=== PATIENT | female | born 1995 | race Caucasian/White ===

== ENCOUNTER 2016-03-04 21:51 | Emergency (ER) | payer OTHER ==
[2016-03-04] MEDS ORDERED: PROPARACAINE 0.5% OPHTH DROPS 15 ML BTL RIGHT EYE STA (23:08)
--- NOTE | 2016-03-04 23:12 | ED ---
General Adult HPI - General Chief complaint: ENT Stated complaint: Eye Problem Time Seen by Provider: 03/04/16 22:53 Source: patient, family, RN notes reviewed Mode of arrival: ambulatory - History of Present Illness Initial comments: This is a 21-year-old female presents with right eye irritation that started last night. Sister is also present in the room and states that patient was rubbing her eye last night and woke up today with a swollen right eyelid. Sister states she was placed on Ciloxan eyedrops for this. Mother was also present and admits to some crusting around the eye. Mother denies any known foreign body to the eye. Patient is special needs and sister and mother were the historians. Mother denies any complaints of blurry vision. Sr. states they contacted the solution maker who suggested they come in for evaluation for possible cellulitis. Mother denies the patient has had any recent fever, chills, shortness breath, chest pain, abdominal pain, nausea/vomiting/diarrhea, back pain, numbness, tingling, hematuria, headache, or any other complaints. - Related Data Allergies Allergy/AdvReac Type Severity Reaction Status Date / Time cephalexin [From Keflex] Allergy Rash/Hives Verified 03/04/16 23:19 Penicillins Allergy Rash/Hives Verified 03/04/16 23:19 sulfamethoxazole Allergy Rash/Hives Verified 03/04/16 23:19 [From Bactrim] trimethoprim [From Bactrim] Allergy Rash/Hives Verified 03/04/16 23:19 Review of Systems ROS Statement: Those systems with pertinent positive or pertinent negative responses have been documented in the HPI. ROS Other: All systems not noted in ROS Statement are negative. Past Medical History Past Medical History: Musculoskeletal Disorder Additional Past Medical History / Comment(s): developmentally delayed. cleft palate. Nystagmus. (L) pupil is larger than (R) pupil. Eczema History of Any Multi-Drug Resistant Organisms: None Reported Past Surgical History: Ear Surgery Past Psychological History: No Psychological Hx Reported Smoking Status: Never smoker Past Alcohol Use History: None Reported Past Drug Use History: None Reported General Exam - General Exam Comments Initial Comments: General: The patient is awake and alert, in no distress, and does not appear acutely ill. Eye: There is normal conjunctiva. There is mild erythema and swelling over the right upper eyelid. Mild crusting to the right lower eyelid. No foreign body visualized with observation or with eyelid eversion. No drainage present. Pupils are equal, round and reactive to light, extra-ocular movements are intact. No nystagmus. No signs of icterus. Mouth and throat: There are moist mucous membranes and no oral lesions. Neck: The neck is supple, there is no tenderness or JVD. Cardiovascular: There is a regular rate and rhythm. No murmur, rub or gallop is appreciated. Respiratory: Lungs are clear to auscultation, respirations are non-labored, breath sounds are equal. No wheezes, stridor, rales, or rhonchi. Musculoskeletal: Normal ROM, no tenderness. Strength 5/5. Sensation intact. Radial pulses equal bilaterally 2+. Neurological: A&O x 3. CN II-XII intact, There are no obvious motor or sensory deficits. Coordination appears grossly intact. Speech is normal. Skin: There is mild erythema and mild swelling over the right upper eyelid. Patient is keeping the eyelid closed. Skin is warm and dry and no rashes or lesions are noted. Psychiatric: Cooperative, appropriate mood & affect, normal judgment. Course Vital Signs 03/04/16 03/05/16 22:05 01:34 Temperature 98.8 F 98.2 F Pulse Rate 62 98 Respiratory 18 20 Rate Blood Pressure 118/67 130/70 O2 Sat by Pulse 98 98 Oximetry Medical Decision Making - Medical Decision Making This is a 21-year-old female presents with right irritation and mild swelling. On physical exam There is normal conjunctiva. There is mild erythema and swelling over the right upper eyelid. Mild crusting to the right lower eyelid. Pupils are equal, round and reactive to light, extra-ocular movements are intact. No nystagmus. No signs of icterus. Proparacaine was applied to the right eye and fluorescein stain was applied and viewed under the Jacinto lamp. No foreign body or corneal abrasion was noted. At this point patient was able to keep the right eye open. Sister states erythema of the right eyelid has improved since this morning. Sister also states that the patient is keeping her eyes open and not complaining of the pain that she was today. Computed tomography scan was done of the orbits and reviewed showing: Negative computed tomography scan of the orbits. I do not see any significant soft tissue swelling. Reported by Dr. Hall. Discussed results with family. Discussed to continue antibiotics eyedrops. Discussed close follow-up with family doctor. Sister of the patient states she works in an opthamology clinic and they are following up an solution maker tomorrow. Discussed return parameters. Discussed that patient should follow up with PCP in one to 2 days or return to the [facility] for any worsening symptoms or for any further concerns. Patient was receptive to this plan and patient will be discharged home. I discussed his case with attending physician Dr. Lowe who agrees the plan as stated above. Disposition Clinical Impression: Blepharitis Disposition: HOME SELF-CARE Condition: Good Instructions: Blepharitis (ED) Additional Instructions: Please continue use of antibiotic eyedrops. Please use [id number] Tylenol or Motrin as needed for any pain. Please use medication as discussed. Please continue the follow-up as planned with your solution maker tomorrow. Please follow-up with family doctor in the next 2 days of symptoms have not improved. Please return to emergency room if the symptoms increase or worsen or for any other concerns. Referrals: Sebastian Neri MD [Primary Care Provider] - 1-2 days Time of Disposition: 01:16
[2016-03-04] MEDS ORDERED: RX INFO: IV CONTRAST WAS GIVEN 1 EACH MISC MISCELLANE PRN (23:50)
[2016-03-04] MEDS ORDERED: LORazepam 1 MG TAB PO STA (23:54)
--- NOTE | 2016-03-05 01:09 | CT ---
EXAMINATION TYPE: CT orbits w con DATE OF EXAM: 03/05/2016 12:53 AM COMPARISON: NONE HISTORY: Rt eye pain, redness, swelling CT DLP: 293.90 mGycm Automated exposure control for dose reduction was used. CONTRAST: Performed with IV Contrast, patient injected with 100 mL of Omnipaque 300. FINDINGS: The orbital margins are intact. There is no evidence of retro-orbital mass. There is fairly normal de velopment and aeration of the paranasal sinuses. There is no sign of a blowout fracture. There is no pathologic enhancement. The globes are symmetric. IMPRESSION: NEGATIVE CT SCAN OF THE ORBITS. I DO NOT SEE ANY SIGNIFICANT SOFT TISSUE SWELLING.
[2016-03-05 01:35] VITALS: BP 130/70; PULSE 98; RESP 20; TEMP 98.2
== END 2016-03-05 01:35 | disposition home or self-care (01) ==
LOC: EC 21:51
DX: H01.009 Unspecified blepharitis unspecified eye, unspecified eyelid (principal); Z88.0 Allergy status to penicillin; Z88.1 Allergy status to other antibiotic agents
CPT/HCPCS: 99283; 70481; Q9967

== ENCOUNTER 2018-02-13 16:14 | Emergency (ER) | payer OTHER ==
[2018-02-13 17:07] VITALS: BP 102/56; PULSE 61; RESP 18; TEMP 98.4
--- NOTE | 2018-02-13 18:03 | ED ---
General Adult HPI - General Chief complaint: Dental/Oral Stated complaint: FACIAL SWELLING, DENTAL INFECTION Time Seen by Provider: 02/13/18 17:43 Source: patient, family, RN notes reviewed Mode of arrival: ambulatory Limitations: no limitations - History of Present Illness Initial comments: Patient 23-year-old female presenting to the emergency room today with a chief complaint of dental abscess. patient does have history of muscular dystrophy and developmental delay. History is obtained from her mother. She does admit that she's had multiple dental problems in the past and had dental abscesses. States they have a difficult time finding anyone that will help them as she needs to be sedated. They state that they've noticed swelling started 2 days ago. They do admit that is consistent with dental abscess that she's had in the past. Denies any other complaints or symptoms. - Related Data Home Medications Medication Instructions Recorded Confirmed Introvale Control 1 tab PO HS 02/13/18 02/13/18 Oxybutynin Chloride [Ditropan XL] 10 mg PO HS 02/13/18 02/13/18 Sertraline [Zoloft] 25 mg PO HS 02/13/18 02/13/18 Previous Rx's Medication Instructions Recorded Clindamycin HCl 300 mg PO Q6H #40 cap 02/13/18 Allergies Allergy/AdvReac Type Severity Reaction Status Date / Time cephalexin [From Keflex] Allergy Rash/Hives Verified 02/13/18 17:53 Penicillins Allergy Rash/Hives Verified 02/13/18 17:53 sulfamethoxazole Allergy Rash/Hives Verified 02/13/18 17:53 [From Bactrim] trimethoprim [From Bactrim] Allergy Rash/Hives Verified 02/13/18 17:53 Review of Systems ROS Statement: Those systems with pertinent positive or pertinent negative responses have been documented in the HPI. ROS Other: All systems not noted in ROS Statement are negative. Past Medical History Past Medical History: Musculoskeletal Disorder Additional Past Medical History / Comment(s): developmentally delayed. cleft palate. Nystagmus. (L) pupil is larger than (R) pupil. Eczema History of Any Multi-Drug Resistant Organisms: None Reported Past Surgical History: Ear Surgery Past Psychological History: No Psychological Hx Reported Smoking Status: Never smoker Past Alcohol Use History: None Reported Past Drug Use History: None Reported General Exam - General Exam Comments Initial Comments: General: The patient is awake and alert, in no distress, and does not appear acutely ill. Eye: There is normal conjunctiva bilaterally. No signs of icterus. Ears, nose, mouth and throat: There are moist mucous membranes and no oral lesions. swelling to the left lower gumline with some tenderness. Neck: The neck is supple Cardiovascular: There is a regular rate and rhythm. No murmur, rub or gallop is appreciated. Respiratory: Lungs are clear to auscultation, respirations are non-labored, breath sounds are equal. No wheezes, stridor, rales, or rhonchi. Musculoskeletal: Normal ROM, no tenderness. Neurological: A&O x 3. CN II-XII intact, There are no obvious motor or sensory deficits. Coordination appears grossly intact. Speech is normal. Skin: Skin is warm and dry and no rashes or lesions are noted. Psychiatric: Cooperative, appropriate mood & affect, normal judgment. Limitations: no limitations Course Vital Signs 02/13/18 17:04 Temperature 98.4 F Pulse Rate 61 Respiratory 18 Rate Blood Pressure 102/56 O2 Sat by Pulse 99 Oximetry Medical Decision Making - Medical Decision Making patient was started on clindamycin as there is ALLERGIES to penicillin. Disposition Clinical Impression: Dental abscess Disposition: HOME SELF-CARE Condition: Good Instructions: Dental Abscess (ED) Additional Instructions: Please follow-up with dentist and use antibiotic and pain medication as discussed. [facility] [address] [address] [phone]) (existing clients only) For new clients: [phone] [facility] Pay $50 for x-rays and the rest discovered [phone] Prescriptions: Clindamycin HCl 300 mg PO Q6H #40 cap Is patient prescribed a controlled substance at d/c from ED?: No Referrals: Nae Burnett MD [Primary Care Provider] - 1-2 days Time of Disposition: 18:02
== END 2018-02-13 18:10 | disposition home or self-care (01) ==
LOC: EC 16:14
DX: K04.7 Periapical abscess without sinus (principal); Z79.3 Long term (current) use of hormonal contraceptives; Z79.899 Other long term (current) drug therapy; Z88.0 Allergy status to penicillin; Z88.2 Allergy status to sulfonamides; Z88.1 Allergy status to other antibiotic agents
CPT/HCPCS: 99283

== ENCOUNTER → 2020-08-09 | Outpatient (CLI) | payer OTHER ==
--- NOTE | 2020-08-09 14:00 | US ---
EXAMINATION TYPE: US venous doppler duplex LE DATE OF EXAM: 08/09/2020 1:45 PM COMPARISON: NONE CLINICAL HISTORY: R22.41 swelling R leg, R22.42 swelling L leg. SIDE PERFORMED: Bilateral TECHNIQUE: The lower extremity deep venous system is examined utilizing real time linear array sonog tabby with graded compression, doppler sonography and color-flow sonography. VESSELS IMAGED: Common Femoral Vein Deep Femoral Vein Greater Saphenous Vein * Femoral Vein Popliteal Vein Small Saphenous Vein * Proximal Calf Veins (* superficial vessels) Technically difficult study. Patient's legs are hard and swollen. Unable to see for most compression views, additional color views taken. Right Leg: Negative for DVT Left Leg: Negative for DVT IMPRESSION: No definite sonographic evidence for DVT of the bilateral lower extremities on this limited exam.
[2020-08-09 15:05] LABS: Basophils # (A) 0.1 k/uL (0-0.2); Basophils % (A) 1 %; Eosinophils # (A) 0.2 k/uL (0-0.7); Eosinophils % (A) 2 %; HCT 41.8 % (34.0-46.0); HGB 13.7 gm/dL (11.4-16.0); Lymphocytes # (A) 1.5 k/uL (1.0-4.8); Lymphocytes % (A) 13 %; MCH 26.1 pg (25.0-35.0); MCHC 32.8 g/dL (31.0-37.0); MCV 79.8 fL (80.0-100.0); Mean Platelet Volume 6.6; Monocytes # (A) 0.6 k/uL (0-1.0); Monocytes % (A) 5 %; Neutrophils # (A) 8.8 k/uL (1.3-7.7); Neutrophils % (A) 78 %; Platelet Count 388 k/uL (150-450); RBC 5.24 m/uL (3.80-5.40); RDW 13.3 % (11.5-15.5); WBC 11.2 k/uL (3.8-10.6)
[2020-08-09 15:17] LABS: ALT 23 U/L (4-34); AST 29 U/L (14-36); African American GFR (CKD) >90 (>60 ml/min/1.73 sqM); Alkaline Phosphatase 97 U/L (38-126); Anion Gap 5 mmol/L; Blood Urea Nitrogen 11 mg/dL (7-17); Calcium 9.4 mg/dL (8.4-10.2); Carbon Dioxide 36 mmol/L (22-30); Chloride 95 mmol/L (98-107); Glucose 73 mg/dL (74-99); Non-African American GFR(CKD) >90 (>60 ml/min/1.73 sqM); Potassium 4.6 mmol/L (3.5-5.1); Sodium 136 mmol/L (137-145); Total Bilirubin 0.3 mg/dL (0.2-1.3); Total Protein 7.3 g/dL (6.3-8.2)
[2020-08-09 15:31] LABS: T4, Free (Free Thyroxine) 1.06 ng/dL (0.78-2.19)
== END | disposition home or self-care (01) ==
LOC: RADUSWWP 13:05
PROVIDERS: ATTEND Internal Medicine
DX: R22.41 Localized swelling, mass and lump, right lower limb (principal); R22.42 Localized swelling, mass and lump, left lower limb
CPT/HCPCS: 80053; 84439; 84443; 84481; 85025; 93970

== ENCOUNTER → 2020-09-21 | Outpatient (CLI) | payer OTHER ==
[2020-09-22 06:08] LABS: T4, Free (Free Thyroxine) 1.3 ng/dL (0.80-1.80)
== END | disposition home or self-care (01) ==
LOC: LABWHC1 15:18
PROVIDERS: ATTEND Internal Medicine
DX: E03.9 Hypothyroidism, unspecified (principal)
CPT/HCPCS: 36415; 84439; 84443; 84481

== ENCOUNTER → 2021-02-03 | Outpatient (CLI) | payer OTHER ==
[2021-02-03 15:44] LABS: HCT 39.1 % (37.2-46.3); HGB 11.4 g/dL (12.0-15.0); MCH 22.6 pg (27.0-32.0); MCHC 29.2 g/dL (32.0-37.0); MCV 77.4 fL (80.0-97.0); Mean Platelet Volume 9.8 fL (9.5-12.2); Platelet Count 389 X 10*3/uL (140-440); RBC 5.05 X 10*6/uL (4.10-5.20); RDW 16.4 % (11.5-14.5); WBC 9.86 X 10*3/uL (4.50-10.00)
[2021-02-03 17:31] LABS: Anion Gap 13.6 mmol/L (10.00-18.00); BUN/Creat Ratio 18.37 Ratio (12.00-20.00); Blood Urea Nitrogen 9.9 mg/dL (9.0-27.0); Calcium 9.5 mg/dL (8.7-10.3); Carbon Dioxide 24.3 mmol/L (20.0-27.5); Non-African American GFR(CKD) 130.3 (60.0-200.0); Potassium 4.8 mmol/L (3.5-5.5)
== END | disposition home or self-care (01) ==
LOC: LABWHC1 10:17
PROVIDERS: ATTEND Internal Medicine Cardiovascular Disease
DX: R60.0 Localized edema (principal); R06.02 Shortness of breath
CPT/HCPCS: 36415; 80048; 84443; 85027

== ENCOUNTER 2021-07-30 19:20 | Inpatient (IN) | payer OTHER ==
--- NOTE | 2021-07-30 20:38 | XR ---
EXAMINATION TYPE: XR chest 2V DATE OF EXAM: 07/30/2021 COMPARISON: NONE HISTORY: Weakness TECHNIQUE: 2 views FINDINGS: There is thoracic moderate dextroscoliosis in kyphotic deformity. There is posterior joseluis st abilizing the thoracic spine. No pulmonary consolidation. No obvious heart failure. Exam limited by p atient positioning. No pleural effusion. IMPRESSION: No definite evidence for active cardiopulmonary disease.
[2021-07-30 20:42] LABS: Appearance,Urine Cloudy (Clear); Bilirubin,Urine Negative (Negative); Blood,Urine Negative (Negative); Color,Urine Yellow; Glucose,Urine (UA) Negative (Negative); Ketones,Urine Negative (Negative); Leukocyte Esterase,Urine Large (Negative); Mucus,Urine Rare /hpf; Nitrite,Urine Negative (Negative); Protein,Urine 2+ (Negative); RBC,Urine 3 /hpf (0-5); Specific Gravity,Urine 1.027 (1.001-1.035); Squamous Epithelial Cell,Urine 4 /hpf (0-4); Urobilinogen,Urine <2.0 mg/dL (<2.0); WBC,Urine 16 /hpf (0-5)
--- NOTE | 2021-07-30 21:29 | ED ---
General Adult HPI - General Chief complaint: Weakness Stated complaint: Covid+ Time Seen by Provider: 07/30/21 19:44 Source: patient, RN notes reviewed, old records reviewed Mode of arrival: wheelchair Limitations: altered mental status - History of Present Illness Initial comments: Patient is a 26 year old female who presents to the emergency room at the direction of urgent care with her mother. Patient has notable cognitive delay. She states that she had send out coated testing completed at urgent care but was directed to the emergency room due to desaturation of 88-94% on room air along with tachypnea and mild fevers. She her mother also reports approximately 30 pound weight gain in the last 2 weeks and over the last 24 hours her right lower extremity has a calm red and warm to the touch. She has a history of fluid volume overload and is typically on Lasix outpatient but has not taken any Lasix today. 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 She has musculoskeletal deformities and has multiple skeletal surgeries. Her mother reports a history of seizures without a seizure since 2005. She was previously on Depakote but has been off Depakote for many years and no longer follows with local neurology. She does follow with specialist at [facility] as needed. She has short statured with minimal verbal interaction with staff but does speak with her mother often. Overall she denies any complaints of pain or shortness of breath at this time. - Related Data Home Medications Medication Instructions Recorded Confirmed Introvale Control 1 tab PO HS 02/13/18 02/13/18 Oxybutynin Chloride [Ditropan XL] 10 mg PO HS 02/13/18 02/13/18 Sertraline [Zoloft] 25 mg PO HS 02/13/18 02/13/18 Previous Rx's Medication Instructions Recorded Clindamycin HCl 300 mg PO Q6H #40 cap 02/13/18 Allergies Allergy/AdvReac Type Severity Reaction Status Date / Time cephalexin [From Keflex] Allergy Rash/Hives Verified 07/30/21 19:34 Penicillins Allergy Rash/Hives Verified 07/30/21 19:34 sulfamethoxazole Allergy Rash/Hives Verified 07/30/21 19:34 [From Bactrim] trimethoprim [From Bactrim] Allergy Rash/Hives Verified 07/30/21 19:34 Review of Systems ROS Statement: Those systems with pertinent positive or pertinent negative responses have been documented in the HPI. ROS Other: All systems not noted in ROS Statement are negative. Past Medical History Past Medical History: Musculoskeletal Disorder Additional Past Medical History / Comment(s): developmentally delayed. cleft palate. Nystagmus. (L) pupil is larger than (R) pupil. Eczema History of Any Multi-Drug Resistant Organisms: None Reported Past Surgical History: Ear Surgery Past Psychological History: No Psychological Hx Reported Smoking Status: Never smoker Past Alcohol Use History: None Reported Past Drug Use History: None Reported General Exam General appearance: alert, in no apparent distress, obese Head exam: Present: atraumatic, normocephalic, normal inspection Eye exam: Present: normal appearance, PERRL, EOMI. Absent: scleral icterus, conjunctival injection, periorbital swelling ENT exam: Present: other (Multiple missing teeth and decay noted) Neck exam: Present: other (large neck). Absent: tenderness Respiratory exam: Present: normal lung sounds bilaterally, other (Mild tachypnea at times no overt distress). Absent: accessory muscle use Cardiovascular Exam: Present: normal rhythm, tachycardia (mild 110s). Absent: systolic murmur, rubs, gallop, clicks GI/Abdominal exam: Present: soft, normal bowel sounds, other (Rounded). Absent: distended, tenderness, guarding, rebound, rigid Extremities exam: Present: pedal edema (Bilateral left +2-3, right +2), other (foot deformity noted with impaired ROM. Right lower extremity ankle & foot red/warm) Neurological exam: Present: alert, CN II-XII intact (grossly), other (developmental delay minimal verbal response to staff) Psychiatric exam: Present: flat affect Skin exam: Present: dry, intact, erythema (right ankle & foot) Course Vital Signs 07/30/21 07/30/21 07/30/21 19:30 22:28 22:29 Temperature 100.6 F H Pulse Rate 110 H 105 H 104 H Respiratory 23 22 Rate Blood Pressure 121/63 135/81 O2 Sat by Pulse 92 L 85 L 99 Oximetry Medical Decision Making - Medical Decision Making Due to covid exposure will check for covid along with influenza. Given weight gain will check for volume overload. Due to lower extremity swelling and redness will check for DVT. Chest x-ray negative for acute processes however desaturation to 85% on room air noted with response to 2 L nasal cannula. Leukocytosis and positive COVID result noted. Doppler negative for DVT. ProBNP normal. Elevated d-dimer likely secondary to COVID however given chest x-ray with no acute cardiopulmonary process and hypoxia will check CT for PE. Leukocytosis and urinalysis noted however no bacteria seen no need for treatment for UTI at this time. Will need admission for hypoxia COVID; Will give 1 dose of IV Lasix for lower extremity swelling will likely be able to resume oral Lasix inpatient. Patient [facility] needs will page [facility] physicians for admission. Dr. Villavicencio notified of admission and accepting. Will place admission orders. CTA pending. Plan of care discussed with mother at bedside who will remain with patient due to cognitive delay. - Lab Data Result diagrams: 07/30/21 21:31 07/30/21 21:31 Lab Results 07/30/21 07/30/21 07/30/21 Range/Units 20:00 20:24 20:24 WBC (3.8-10.6) k/uL RBC (3.80-5.40) m/uL Hgb (11.4-16.0) gm/dL Hct (34.0-46.0) % MCV (80.0-100.0) fL MCH (25.0-35.0) pg MCHC (31.0-37.0) g/dL RDW (11.5-15.5) % Plt Count (150-450) k/uL MPV Neutrophils % % Lymphocytes % % Monocytes % % Eosinophils % % Basophils % % Neutrophils # (1.3-7.7) k/uL Lymphocytes # (1.0-4.8) k/uL Monocytes # (0-1.0) k/uL Eosinophils # (0-0.7) k/uL Basophils # (0-0.2) k/uL PT (9.0-12.0) sec INR (<1.2) APTT (22.0-30.0) sec D-Dimer (<0.60) mg/L FEU Sodium (137-145) mmol/L Potassium (3.5-5.1) mmol/L Chloride (98-107) mmol/L Carbon Dioxide (22-30) mmol/L Anion Gap mmol/L BUN (7-17) mg/dL Creatinine (0.52-1.04) mg/dL Est GFR (CKD-EPI)AfAm (>60 ml/min/1.73 sqM) Est GFR (CKD-EPI)NonAf (>60 ml/min/1.73 sqM) Glucose (74-99) mg/dL Plasma Lactic Acid Jesus (0.7-2.0) mmol/L Calcium (8.4-10.2) mg/dL Total Bilirubin (0.2-1.3) mg/dL AST (14-36) U/L ALT (4-34) U/L Alkaline Phosphatase (38-126) U/L Troponin I (0.000-0.034) ng/mL NT-Pro-B Natriuret Pep pg/mL Total Protein (6.3-8.2) g/dL Albumin (3.5-5.0) g/dL Urine Color Yellow Urine Appearance Cloudy H (Clear) Urine pH 7.0 (5.0-8.0) Ur Specific [place] 1.027 (1.001-1.035) Urine Protein 2+ H (Negative) Urine Glucose (UA) Negative (Negative) Urine Ketones Negative (Negative) Urine Blood Negative (Negative) Urine Nitrite Negative (Negative) Urine Bilirubin Negative (Negative) Urine Urobilinogen <2.0 (<2.0) mg/dL Ur Leukocyte Esterase Large H (Negative) Urine RBC 3 (0-5) /hpf Urine WBC 16 H (0-5) /hpf Ur Squamous Epith Cells 4 (0-4) /hpf Urine Mucus Rare H (None) /hpf Coronavirus (PCR) Detected A (Not Detectd) Influenza Type A RNA Not Detected (Not Detectd) Influenza Type B (PCR) Not Detected (Not Detectd) 07/30/21 07/30/21 07/30/21 Range/Units 21:31 21:31 21:31 WBC 12.1 H (3.8-10.6) k/uL RBC 4.69 (3.80-5.40) m/uL Hgb 12.7 (11.4-16.0) gm/dL Hct 41.4 (34.0-46.0) % MCV 88.3 (80.0-100.0) fL MCH 27.1 (25.0-35.0) pg MCHC 30.7 L (31.0-37.0) g/dL RDW 13.5 (11.5-15.5) % Plt Count 287 (150-450) k/uL MPV 6.8 Neutrophils % 89 % Lymphocytes % 3 % Monocytes % 5 % Eosinophils % 1 % Basophils % 2 % Neutrophils # 10.7 H (1.3-7.7) k/uL Lymphocytes # 0.3 L (1.0-4.8) k/uL Monocytes # 0.6 (0-1.0) k/uL Eosinophils # 0.1 (0-0.7) k/uL Basophils # 0.2 (0-0.2) k/uL PT 10.2 (9.0-12.0) sec INR 0.9 (<1.2) APTT 27.8 (22.0-30.0) sec D-Dimer 1.44 H (<0.60) mg/L FEU Sodium 134 L (137-145) mmol/L Potassium 4.5 (3.5-5.1) mmol/L Chloride 96 L (98-107) mmol/L Carbon Dioxide 31 H (22-30) mmol/L Anion Gap 7 mmol/L BUN 11 (7-17) mg/dL Creatinine 0.62 (0.52-1.04) mg/dL Est GFR (CKD-EPI)AfAm >90 (>60 ml/min/1.73 sqM) Est GFR (CKD-EPI)NonAf >90 (>60 ml/min/1.73 sqM) Glucose 120 H (74-99) mg/dL Plasma Lactic Acid Jesus (0.7-2.0) mmol/L Calcium 8.8 (8.4-10.2) mg/dL Total Bilirubin 0.3 (0.2-1.3) mg/dL AST 22 (14-36) U/L ALT 18 (4-34) U/L Alkaline Phosphatase 87 (38-126) U/L Troponin I (0.000-0.034) ng/mL NT-Pro-B Natriuret Pep pg/mL Total Protein 7.0 (6.3-8.2) g/dL Albumin 3.9 (3.5-5.0) g/dL Urine Color Urine Appearance (Clear) Urine pH (5.0-8.0) Ur Specific [place] (1.001-1.035) Urine Protein (Negative) Urine Glucose (UA) (Negative) Urine Ketones (Negative) Urine Blood (Negative) Urine Nitrite (Negative) Urine Bilirubin (Negative) Urine Urobilinogen (<2.0) mg/dL Ur Leukocyte Esterase (Negative) Urine RBC (0-5) /hpf Urine WBC (0-5) /hpf Ur Squamous Epith Cells (0-4) /hpf Urine Mucus (None) /hpf Coronavirus (PCR) (Not Detectd) Influenza Type A RNA (Not Detectd) Influenza Type B (PCR) (Not Detectd) 07/30/21 07/30/21 07/30/21 Range/Units 21:31 21:31 21:31 WBC (3.8-10.6) k/uL RBC (3.80-5.40) m/uL Hgb (11.4-16.0) gm/dL Hct (34.0-46.0) % MCV (80.0-100.0) fL MCH (25.0-35.0) pg MCHC (31.0-37.0) g/dL RDW (11.5-15.5) % Plt Count (150-450) k/uL MPV Neutrophils % % Lymphocytes % % Monocytes % % Eosinophils % % Basophils % % Neutrophils # (1.3-7.7) k/uL Lymphocytes # (1.0-4.8) k/uL Monocytes # (0-1.0) k/uL Eosinophils # (0-0.7) k/uL Basophils # (0-0.2) k/uL PT (9.0-12.0) sec INR (<1.2) APTT (22.0-30.0) sec D-Dimer (<0.60) mg/L FEU Sodium (137-145) mmol/L Potassium (3.5-5.1) mmol/L Chloride (98-107) mmol/L Carbon Dioxide (22-30) mmol/L Anion Gap mmol/L BUN (7-17) mg/dL Creatinine (0.52-1.04) mg/dL Est GFR (CKD-EPI)AfAm (>60 ml/min/1.73 sqM) Est GFR (CKD-EPI)NonAf (>60 ml/min/1.73 sqM) Glucose (74-99) mg/dL Plasma Lactic Acid Jesus 1.4 (0.7-2.0) mmol/L Calcium (8.4-10.2) mg/dL Total Bilirubin (0.2-1.3) mg/dL AST (14-36) U/L ALT (4-34) U/L Alkaline Phosphatase (38-126) U/L Troponin I <0.012 (0.000-0.034) ng/mL NT-Pro-B Natriuret Pep 80 pg/mL Total Protein (6.3-8.2) g/dL Albumin (3.5-5.0) g/dL Urine Color Urine Appearance (Clear) Urine pH (5.0-8.0) Ur Specific [place] (1.001-1.035) Urine Protein (Negative) Urine Glucose (UA) (Negative) Urine Ketones (Negative) Urine Blood (Negative) Urine Nitrite (Negative) Urine Bilirubin (Negative) Urine Urobilinogen (<2.0) mg/dL Ur Leukocyte Esterase (Negative) Urine RBC (0-5) /hpf Urine WBC (0-5) /hpf Ur Squamous Epith Cells (0-4) /hpf Urine Mucus (None) /hpf Coronavirus (PCR) (Not Detectd) Influenza Type A RNA (Not Detectd) Influenza Type B (PCR) (Not Detectd) - EKG Data EKG Comments: Sinus tachycardia, moderate intraventricular conduction delay, nonspecific T- wave abnormality. Ventricular rate 115 beats per minutes, [place] interval 140 ms, QRS duration 113, ms QTQTC 342/410 ms, PRT axis series 14, 87, -19. No comparison available. When compared to previous EKG there are: previous EKG unavailable - Radiology Data Radiology results: report reviewed, image reviewed Two-view chest x-ray exam limited by patient positioning. No pleural effusion or pulmonary consolidation. No obvious heart failure. No definitive evidence of active pulmonary disease. Bilateral venous Doppler duplex of lower extremities negative for deep vein thrombosis. Disposition Clinical Impression: Acute hypoxemic respiratory failure due to COVID-19 Disposition: ADMITTED IP TO THIS HOSP Condition: Stable Referrals: Niurka Gutierrez NPC [STAFF PHYSICIAN] - 1-2 days Time of Disposition: 22:38 Decision to Admit Reason: Admit from [facility]
[2021-07-30 21:52] LABS: Basophils # (A) 0.2 k/uL (0-0.2); Basophils % (A) 2 %; Eosinophils # (A) 0.1 k/uL (0-0.7); Eosinophils % (A) 1 %; HCT 41.4 % (34.0-46.0); HGB 12.7 gm/dL (11.4-16.0); Lymphocytes # (A) 0.3 k/uL (1.0-4.8); Lymphocytes % (A) 3 %; MCH 27.1 pg (25.0-35.0); MCHC 30.7 g/dL (31.0-37.0); MCV 88.3 fL (80.0-100.0); Mean Platelet Volume 6.8; Monocytes # (A) 0.6 k/uL (0-1.0); Monocytes % (A) 5 %; Neutrophils # (A) 10.7 k/uL (1.3-7.7); Neutrophils % (A) 89 %; Platelet Count 287 k/uL (150-450); RBC 4.69 m/uL (3.80-5.40); RDW 13.5 % (11.5-15.5); WBC 12.1 k/uL (3.8-10.6)
[2021-07-30 22:04] LABS: ALT 18 U/L (4-34); AST 22 U/L (14-36); African American GFR (CKD) >90 (>60 ml/min/1.73 sqM); Albumin 3.9 g/dL (3.5-5.0); Alkaline Phosphatase 87 U/L (38-126); Anion Gap 7 mmol/L; Blood Urea Nitrogen 11 mg/dL (7-17); Calcium 8.8 mg/dL (8.4-10.2); Carbon Dioxide 31 mmol/L (22-30); Chloride 96 mmol/L (98-107); Glucose 120 mg/dL (74-99); Non-African American GFR(CKD) >90 (>60 ml/min/1.73 sqM); Potassium 4.5 mmol/L (3.5-5.1); Sodium 134 mmol/L (137-145); Total Bilirubin 0.3 mg/dL (0.2-1.3)
[2021-07-30 22:11] LABS: INR 0.9 (<1.2); Partial Thromboplastin Time 27.8 sec (22.0-30.0); Prothrombin Time 10.2 sec (9.0-12.0)
--- NOTE | 2021-07-30 22:19 | US ---
EXAMINATION TYPE: US venous doppler duplex LE BI DATE OF EXAM: 07/30/2021 9:59 PM COMPARISON: NONE CLINICAL HISTORY: swelling and redness. COVID+ in cognitively impaired patient with swollen, red legs , no h/o dvt SIDE PERFORMED: Bilateral TECHNIQUE: The lower extremity deep venous system is examined utilizing real time linear array sonog tabby with graded compression, doppler sonography and color-flow sonography. VESSELS IMAGED: Common Femoral Vein Deep Femoral Vein Greater Saphenous Vein * Femoral Vein Popliteal Vein Small Saphenous Vein * Proximal Calf Veins (* superficial vessels) *unable to do compression images, patient would not have been able to tolerate it Right Leg: Negative for DVT Left Leg: Negative for DVT IMPRESSION: No evidence of deep vein thrombosis in both legs.
[2021-07-30] MEDS ORDERED: ACETAMINOPHEN TAB 325 MG TAB PO PRN (22:43)
[2021-07-30] MEDS ORDERED: NALOXONE 0.4 MG/ML 1 ML VIAL IV PRN (22:43)
[2021-07-30] MEDS ORDERED: FUROSEMIDE 10 MG/ML 4 ML VIAL IV ONE (22:46)
--- NOTE | 2021-07-30 23:21 | CT ---
EXAMINATION TYPE: CT chest angio for PE DATE OF EXAM: 07/30/2021 COMPARISON: None HISTORY: hypoxia and elevated d-dimer. pt. is covid + no prior on PACS CT DLP: 626.8 mGycm Automated exposure control for dose reduction was used. CONTRAST: Performed with IV Contrast, patient injected with 100ml mL of Isovue 370. Images obtained from the thoracic inlet to the diaphragm with IV contrast. There are Three-D postproc essed images. There is some increased pulmonary interstitial density throughout both lungs. Heart is enlarged. No p ulmonary consolidation. No evidence of filling defect in the pulmonary arteries. Exam limited by keena ent size. There is no mediastinal adenopathy. There are no hilar masses. No pleural effusion. No pericardial ef fusion. There is a thoracic kyphotic deformity. There is thoracic dextroscoliosis. Right diaphragm is elevate d. IMPRESSION: There is some mild increased pulmonary interstitial density that could be interstitial edema and pneu monia. No evidence of pulmonary embolism. Cardiomegaly.
[2021-07-31] MEDS ORDERED: MELATONIN 5 MG TABLET PO PRN (03:38)
--- NOTE | 2021-07-31 03:39 | P.HPIM ---
History of Present Illness H&P Date: 07/31/21 The patient is a 26-year-old female with a PMH of an unknown complex developmental delay, seizure disorder, scoliosis, and recently diagnosed von Willebrand's disease, who is brought into the emergency room by her mother for hypoxia and fever. The mother reports that she herself had tested positive for COVID several days ago and had been trying to maintain her distance from the patient. She reports however that the patient had developed a persistent cough 1-2 days ago, for which she took the patient was in urgent care earlier today where she was noted to be hypoxic to 88% on room air as well as febrile. They were subsequently directed to the emergency room. The mother also reports noticing the patient's lower extremity bilateral swelling, for which she routinely takes Lasix 40 mg daily over the past 6 months. She states however that despite compliance with the medication, the lower extremity swelling significantly worsened over the past 2 days. She also states finding out recently that the patient has one Willebrand's disease, which was stated as a reason for which the patient could not undergo dental surgery for her poor dentition. As per the mother, the patient's expressive and receptive language is limited and she that she is weary of healthcare worker. At the time of interview, the patient repeatedly said "I am fine" and refused to answer questions further. The mother stated that this typical behavior for her. No meaningful review of systems could thereby be obtained. Chest CTA in the emergency room was consistent with interstitial pneumonia. EKG reveals sinus tachycardia at 1 15 bpm with T-wave inversion in leads 3, aVF, and V3 to V4. Lower extremity venous Doppler was negative for DVT. Laboratory evaluation was remarkable for WBC count of 12.1, coronavirus PCR positive, and d-dimer 1.44. SpO2 in the emergency room was 85% on room air with T-max 100.6F. Review of systems: Unable to obtain Physical examination: General: Chronically somewhat ill appearing, no distress, morbidly obese Derm: no unusual rashes/lesions, warm Head: atraumatic, normocephalic, symmetric Eyes: Refused exam, tracking grossly unremarkable ENT: Nose and ears atraumatic Neck: No cervical lymphadenopathy, trachea midline, supple Mouth: no lip lesion, mucus membranes moist Cardiovascular: S1S2 reg, no murmur, positive dorsalis pedis pulse bilateral, no edema Lungs: Bilateral rhonchi and rales,no wheezing, no accessory muscle use Abdominal: soft, nontender to palpation, no guarding Ext: No gross muscle atrophy, no contractures, Neuro: No gross focal neuro deficits, moving all extremities Psych: Unable to assess Assessment/plan COVID-19 pneumonitis with acute hypoxic respiratory failure -Decadron 6 mg by mouth daily -Supplemental oxygen -Vitamin C, vitamin D, zinc, melatonin DVT prophylaxis -Lovenox The patient is admitted with an anticipated greater than 2 midnight stay for evaluation of COVID CODE STATUS: Full Code Discussed with: Patient, Mother Anticipated discharge date: 2-[address]: Home Past Medical History Past Medical History: Musculoskeletal Disorder Additional Past Medical History / Comment(s): developmentally delayed. cleft palate. Nystagmus. (L) pupil is larger than (R) pupil. Eczema History of Any Multi-Drug Resistant Organisms: None Reported Past Surgical History: Ear Surgery Past Psychological History: No Psychological Hx Reported Smoking Status: Never smoker Past Alcohol Use History: None Reported Past Drug Use History: None Reported - Past Family History Mother Family Medical History: Hypertension Medications and Allergies Home Medications Medication Instructions Recorded Confirmed Type Clindamycin HCl 300 mg PO Q6H #40 cap 02/13/18 Rx [place] Control 1 tab PO HS 02/13/18 02/13/18 History Oxybutynin Chloride [Ditropan XL] 10 mg PO HS 02/13/18 02/13/18 History Sertraline [Zoloft] 25 mg PO HS 02/13/18 02/13/18 History Allergies Allergy/AdvReac Type Severity Reaction Status Date / Time cephalexin [From Keflex] Allergy Rash/Hives Verified 07/30/21 19:34 Penicillins Allergy Rash/Hives Verified 07/30/21 19:34 sulfamethoxazole Allergy Rash/Hives Verified 07/30/21 19:34 [From Bactrim] trimethoprim [From Bactrim] Allergy Rash/Hives Verified 07/30/21 19:34 Physical Exam Vitals: Vital Signs Temp Pulse Resp BP Pulse Ox 07/31/21 00:21 99 07/30/21 22:29 104 H 99 07/30/21 22:28 105 H 22 135/81 85 L 07/30/21 19:30 100.6 F H 110 H 23 121/63 92 L Intake and Output 07/30/21 07/30/21 07/31/21 14:59 22:59 06:59 Other: Weight 72.575 kg Results CBC & Chem 7: 07/30/21 21:31 07/30/21 21:31 Labs: Abnormal Lab Results - Last 24 Hours (Table) 07/30/21 07/30/21 07/30/21 Range/Units 20:00 20:24 21:31 WBC 12.1 H (3.8-10.6) k/uL MCHC 30.7 L (31.0-37.0) g/dL Neutrophils # 10.7 H (1.3-7.7) k/uL Lymphocytes # 0.3 L (1.0-4.8) k/uL D-Dimer (<0.60) mg/L FEU Sodium (137-145) mmol/L Chloride (98-107) mmol/L Carbon Dioxide (22-30) mmol/L Glucose (74-99) mg/dL Urine Appearance Cloudy H (Clear) Urine Protein 2+ H (Negative) Ur Leukocyte Esterase Large H (Negative) Urine WBC 16 H (0-5) /hpf Urine Mucus Rare H (None) /hpf Coronavirus (PCR) Detected A (Not Detectd) 07/30/21 07/30/21 Range/Units 21:31 21:31 WBC (3.8-10.6) k/uL MCHC (31.0-37.0) g/dL Neutrophils # (1.3-7.7) k/uL Lymphocytes # (1.0-4.8) k/uL D-Dimer 1.44 H (<0.60) mg/L FEU Sodium 134 L (137-145) mmol/L Chloride 96 L (98-107) mmol/L Carbon Dioxide 31 H (22-30) mmol/L Glucose 120 H (74-99) mg/dL Urine Appearance (Clear) Urine Protein (Negative) Ur Leukocyte Esterase (Negative) Urine WBC (0-5) /hpf Urine Mucus (None) /hpf Coronavirus (PCR) (Not Detectd)
[2021-07-31] MEDS: dexAMETHasone 2 MG TAB PO SCH (04:59)
[2021-07-31] MEDS: ZINC SULFATE 220 MG CAP PO SCH (09:06)
[2021-07-31] MEDS: ASCORBIC ACID 500 MG TAB PO SCH (09:06)
[2021-07-31] MEDS: CHOLECALCIFEROL 125 MCG (5000 IU) TABLET PO SCH (09:06)
[2021-07-31] MEDS: ENOXAPARIN 40 MG/0.4 ML SYRINGE SQ SCH (09:07)
--- NOTE | 2021-07-31 15:22 | P.PN ---
Subjective Progress Note Date: 07/31/21 Hospital Course: The patient is a 26-year-old female with a past medical history of complex developmental delay, seizure disorder, scoliosis, hypothyroidism, and recently diagnosed von Willebrand's disease. She presented to the emergency department overnight with her mother/caregiver for reports of hypoxia and fever accompanied by a persistent cough 2 days and worsening bilateral lower extremity edema. Patient was reportedly taken to urgent care center where she was diagnosed with Covid and found to be hypoxic with SpO2 of 88% on room air. Patient was then transferred to the emergency department. In the emergency department patient underwent full evaluation. Labs revealed leukocytosis with WBC count of 12.1. Elevated d-dimer of 1.44. Hyponatremia with sodium of 134, hypochloremia with chloride of 96, and elevated carbon dioxide of 31. Patient tested positive for coronavirus. Chest x-ray completed negative for acute cardiopulmonary process. Bilateral lower extremity venous Doppler negative for DVTs. EKG showing sinus tachycardia at 115 bpm with T-wave inversion in leads III, aVF, V3, and V4. Patient's vital signs were stable, she did have a pulse rate of 104 with a low- grade temp of 100.6F. SpO2 did drop to 85% on room air requiring oxygen supplementation. Patient was then admitted under our services with consultation to pulmonology. Physical examination: Patient seen and fully evaluated at the bedside this morning. Patient lives with her mother and slightly reserved upon interaction. Patient's mother reports patient has a fairly healthcare workers. Patient did talk and answer select questions, but was noticed to be reserved. Patient continues to have diffuse rhonchi and remains on 2 L O2 via nasal cannula. Patient denies having any pain or complaints both when assessed by myself and when asked by her mother. General: non toxic, no distress, appears chronically ill Derm: warm, dry Head: atraumatic, normocephalic, symmetric Eyes: no lid lag, anicteric sclera Mouth: no lip lesion, mucus membranes moist. Neck supple with full range of motion. Cardiovascular: S1S2 reg, no murmur, positive posterior tibial pulse bilaterally, lower extremity edema Lungs: Diffuse rhonchi noted, no wheezes/rales/crackles and no accessory muscle use Abdominal: soft, nontender to palpation, no guarding, no appreciable organomegaly Ext: Growth Riester traction, short stature, patient moving all extremities independently. Did not assess gait. Psych/Neuro: Speech limited. Moving all extremities independently. Patient minimally verbal, reserved interaction secondary to mother's reports of patient's fear of healthcare workers. Assessment/plan Acute respiratory failure with hypoxia secondary to COVID 19 pneumonitis -Oxygenation to be administered and titrated as needed to maintain SPO2 equal to or greater than 90% -Telemetry monitoring. -Continue trending inflammatory markers -Encourage Incentive Spirometry 10-15x hourly while awake -Steroids: Decadron 6 mg daily -Continue vitamin C, Vitamin D, and Zinc. -Pulmonology following, appreciate further recommendations. -DVT prophylaxis with Lovenox. -Strict Droplet plus Contact precautions Chronic conditions: Complex developmental delay, seizure disorder, scoliosis, hypothyroidism, and recently diagnosed von Willebrand's disease -Patient to continue with daily home medication regimen. We will continue to provide safe and supportive treatment with assistance as needed. CODE STATUS: Full Code DVT prophylaxis: Lovenox Discussed with: Patient, Mother, and RN Anticipated discharge date: 2-[address]: Home A total of 33 minutes was spent on the care of this complex patient more than 50% of the time was spent in counseling and care coordination. I reviewed the documentation as provided by the NAIF above, who is the original author of this note. I agree with the documented assessment and plan, with the following changes: none Objective - Vital Signs Vital signs: Vital Signs Temp 99.2 F 07/31/21 01:22 Pulse 65 07/31/21 05:00 Resp 20 07/31/21 05:00 BP 121/66 07/31/21 01:22 Pulse Ox 98 07/31/21 05:00 FiO2 Intake & Output 07/30/21 07/31/21 07/31/21 18:59 06:59 18:59 Weight 72.575 kg - Labs CBC & Chem 7: 07/30/21 21:31 07/30/21 21:31 Labs: Abnormal Lab Results - Last 24 Hours (Table) 07/30/21 07/30/21 07/30/21 Range/Units 20:00 20:24 21:31 WBC 12.1 H (3.8-10.6) k/uL MCHC 30.7 L (31.0-37.0) g/dL Neutrophils # 10.7 H (1.3-7.7) k/uL Lymphocytes # 0.3 L (1.0-4.8) k/uL D-Dimer (<0.60) mg/L FEU Sodium (137-145) mmol/L Chloride (98-107) mmol/L Carbon Dioxide (22-30) mmol/L Glucose (74-99) mg/dL Urine Appearance Cloudy H (Clear) Urine Protein 2+ H (Negative) Ur Leukocyte Esterase Large H (Negative) Urine WBC 16 H (0-5) /hpf Urine Mucus Rare H (None) /hpf Coronavirus (PCR) Detected A (Not Detectd) 07/30/21 07/30/21 Range/Units 21:31 21:31 WBC (3.8-10.6) k/uL MCHC (31.0-37.0) g/dL Neutrophils # (1.3-7.7) k/uL Lymphocytes # (1.0-4.8) k/uL D-Dimer 1.44 H (<0.60) mg/L FEU Sodium 134 L (137-145) mmol/L Chloride 96 L (98-107) mmol/L Carbon Dioxide 31 H (22-30) mmol/L Glucose 120 H (74-99) mg/dL Urine Appearance (Clear) Urine Protein (Negative) Ur Leukocyte Esterase (Negative) Urine WBC (0-5) /hpf Urine Mucus (None) /hpf Coronavirus (PCR) (Not Detectd)
--- NOTE | 2021-07-31 16:37 | P.CNPUL ---
History of Present Illness Consult date: 07/31/21 Requesting physician: Magali Villavicencio Reason for consult: pneumonia Chief complaint: Fever and shortness of breath History of present illness: This is a 26-year-old female with history of developmental delay, seizure disorder, scoliosis, von Willebrand disease, patient was brought in by her mother mostly because the patient had fever at home, and she was noted to have drop in her O2 saturations. Down to 92%. The mother tested positive recently for COVID-19 infection, however she received monoclonal antibody infusion, and did not require hospitalization. The patient's symptoms started about 1-2 days ago, and seems to be progressing. Apparently in urgent care, her O2 saturation was 88% on room air, patient was directed to go to the emergency room. Chest x- ray and CT of the chest suggestive of bilateral pneumonia, patient was admitted and this consult was initiated. No history could be obtained from the patient herself. Workup in the ER included CT angiogram of the chest which showed bilateral pneumonia but no evidence of ovarian embolism. Venous Doppler of the lower extremities was negative. Patient tested positive for COVID-19. And apparently her O2 saturation was 85% on room air upon her initial presentation. However she is 97% at present on 3 L. She has been saturating anywhere between 97% to 99% on room air and on nasal cannula according to the mother and O2 satur ation dropped down when she falls asleep. CBC showed WBC of 12.1 hemoglobin 12.7. D-dimer was 1.44. Electrolytes are normal. Renal profile is normal. The urinalysis showed positive leukocyte esterase Review of Systems ROS unobtainable: due to mental status Past Medical History Past Medical History: Musculoskeletal Disorder Additional Past Medical History / Comment(s): developmentally delayed. cleft palate. Nystagmus. (L) pupil is larger than (R) pupil. Eczema History of Any Multi-Drug Resistant Organisms: None Reported Past Surgical History: Ear Surgery Past Psychological History: No Psychological Hx Reported Smoking Status: Never smoker Past Alcohol Use History: None Reported Past Drug Use History: None Reported - Past Family History Mother Family Medical History: Hypertension Medications and Allergies Home Medications Medication Instructions Recorded Confirmed Type Oxybutynin Chloride [Ditropan XL] 10 mg PO HS 02/13/18 07/31/21 History Furosemide [Lasix] 40 mg PO DAILY 07/31/21 07/31/21 History Jolessa 1 tab PO DAILY 07/31/21 07/31/21 History Levothyroxine Sodium [Synthroid] 12.5 mcg PO DAILY 07/31/21 07/31/21 History Potassium Chloride [Klor-Con M20] 20 meq PO DAILY 07/31/21 07/31/21 History Sertraline [Zoloft] 50 mg PO DAILY 07/31/21 07/31/21 History Allergies Allergy/AdvReac Type Severity Reaction Status Date / Time cephalexin [From Keflex] Allergy Rash/Hives Verified 07/30/21 19:34 Penicillins Allergy Rash/Hives Verified 07/30/21 19:34 sulfamethoxazole Allergy Rash/Hives Verified 07/30/21 19:34 [From Bactrim] trimethoprim [From Bactrim] Allergy Rash/Hives Verified 07/30/21 19:34 Physical Exam Vitals: Vital Signs Temp Pulse Resp BP Pulse Ox 07/31/21 11:45 78 18 97 07/31/21 05:00 65 20 98 07/31/21 01:22 99.2 F 83 24 121/66 95 07/31/21 00:21 99 07/30/21 22:29 104 H 99 07/30/21 22:28 105 H 22 135/81 85 L 07/30/21 19:30 100.6 F H 110 H 23 121/63 92 L Physical examination: General: Revealed a 26-year-old female, in no distress. On 2 L nasal cannula Derm: No rashes. Head: Atraumatic, normocephalic. ENT: Moist mucous membranes. Neck is supple. Neck: No neck masses no JVD no stridor. Mouth: Intact mucous membranes. Cardiovascular: Distant S1 and S2, no S3 gallop. Lungs: Symmetrical chest expansion, rhonchi noted bilaterally. Abdominal: Obese soft nontender no megaly no rebound. Ext: No clubbing edema or cyanosis. Neuro: Nonverbal, does not follow instructions. Psych: Unable to assess Results - Laboratory Findings CBC and BMP: 07/30/21 21:31 07/30/21 21:31 PT/INR, D-dimer PT 10.2 sec (9.0-12.0) 07/30/21 21:31 INR 0.9 (<1.2) 07/30/21 21:31 D-Dimer 1.44 mg/L FEU (<0.60) H 07/30/21 21:31 Abnormal lab findings: Abnormal Labs 07/30/21 07/30/21 07/30/21 20:00 20:24 21:31 WBC 12.1 H MCHC 30.7 L Neutrophils # 10.7 H Lymphocytes # 0.3 L D-Dimer Sodium Chloride Carbon Dioxide Glucose Urine Appearance Cloudy H Urine Protein 2+ H Ur Leukocyte Esterase Large H Urine WBC 16 H Urine Mucus Rare H Coronavirus (PCR) Detected A 07/30/21 07/30/21 21:31 21:31 WBC MCHC Neutrophils # Lymphocytes # D-Dimer 1.44 H Sodium 134 L Chloride 96 L Carbon Dioxide 31 H Glucose 120 H Urine Appearance Urine Protein Ur Leukocyte Esterase Urine WBC Urine Mucus Coronavirus (PCR) - Diagnostic Findings CT scan - chest: image reviewed (CT angiogram of the chest showed increase pulmonary interstitial edema/pneumonia no evidence of pulmonary embolism) Assessment and Plan Assessment: Impression: Acute hypoxic respiratory failure secondary to CoVID 19 pneumonia Developmentally delayed. History of cleft palate History of severe scoliosis requiring multiple corrective surgeries on spine. Possible urinary tract infection Elevated d-dimer but no evidence of pulmonary embolism or DVT. Vaccinated but not BOOSTERED, patient received 2 doses of moderna vaccine last one was a year ago Von Willebrand disease. Recommendation: Continue oxygen and titrate accordingly Admit patient and start the COVID-19 cocktail. Start patient on Remdesivir. Check urine cultures. GI and DVT prophylaxis. Monitor inflammatory markers. Stick to droplet isolation. Agree with Decadron 6 mg IV push daily We will continue to follow. Time with Patient: Greater than 30
[2021-07-31] MEDS ORDERED: REMDESIVIR 200 MG in SODIUM CHLORIDE 0.9% 250 ML IVPB ONE (17:00)
[2021-07-31] MEDS: OXYBUTYNIN 10 MG TAB.ER.24 PO SCH (20:37)
[2021-08-01] MEDS: LEVOTHYROXINE 25 MCG TAB PO SCH (06:36)
--- NOTE | 2021-08-01 09:47 | XR ---
EXAMINATION TYPE: XR chest 1V portable DATE OF EXAM: 08/01/2021 COMPARISON: Chest x-ray and CT 07/30/2021 HISTORY: Covid pneumonia TECHNIQUE: Single frontal view of the chest is obtained. FINDINGS: Patient is rotated, there is an underlying scoliosis, joseluis fixation is present as noted on prior exam. Exam somewhat limited technically. No evident pneumothorax or pleural effusion. Cardiac m ediastinal silhouette is likely stable, heart is enlarged. Lung volumes are low. No definitive airspa ce disease. IMPRESSION: Exam limited by patient body habitus. Cardiomegaly and postop changes, scoliosis.
--- NOTE | 2021-08-01 11:15 | P.PN ---
Subjective Progress Note Date: 08/01/21 Hospital Course: The patient is a 26-year-old female with a past medical history of complex developmental delay, seizure disorder, scoliosis, hypothyroidism, and recently diagnosed von Willebrand's disease. She presented to the emergency department overnight with her mother/caregiver for reports of hypoxia and fever accompanied by a persistent cough 2 days and worsening bilateral lower extremity edema. Patient was reportedly taken to urgent care center where she was diagnosed with Covid and found to be hypoxic with SpO2 of 88% on room air. Patient was then transferred to the emergency department. In the emergency department patient underwent full evaluation. Labs revealed leukocytosis with WBC count of 12.1. Elevated d-dimer of 1.44. Hyponatremia with sodium of 134, hypochloremia with chloride of 96, and elevated carbon dioxide of 31. Patient tested positive for coronavirus. Chest x-ray completed negative for acute cardiopulmonary process. CTA negative for PE, consistent with bilateral pneumonia. Bilateral lower extremity venous Doppler negative for DVTs. EKG showing sinus tachycardia at 115 bpm with T-wave inversion in leads III, aVF, V3, and V4. Patient's vital signs were stable, she did have a pulse rate of 104 with a low-grade temp of 100.6F. SpO2 did drop to 85% on room air requiring oxygen supplementation. Patient was then admitted under our services with consultation to pulmonology and was started on Remdesivir 07/31/21. Physical examination: Patient seen and fully evaluated at the bedside this morning. Patient lives with her mother and slightly reserved upon interaction. Patient's mother reports patient has a fairly healthcare workers. Patient did talk and answer select questions, but was noticed to be reserved. Patient continues to have diffuse rhonchi and remains on 2 L O2 via nasal cannula. Patient denies having any pain or complaints both when assessed by myself and when asked by her mother. General: non toxic, no distress, appears chronically ill Derm: warm, dry Head: atraumatic, normocephalic, symmetric Eyes: no lid lag, anicteric sclera Mouth: no lip lesion, mucus membranes moist. Neck supple with full range of motion. Cardiovascular: S1S2 reg, no murmur, positive posterior tibial pulse bilaterally, lower extremity edema Lungs: Diffuse rhonchi noted, no wheezes/rales/crackles and no accessory muscle use Abdominal: soft, nontender to palpation, no guarding, no appreciable organomegaly Ext: Growth restriction, short stature, patient moving all extremities independently. Did not assess gait. Psych/Neuro: Speech limited. Moving all extremities independently. Patient minimally verbal, reserved interaction secondary to mother's reports of patient's fear of healthcare workers. Assessment/plan Acute respiratory failure with hypoxia secondary to COVID 19 pneumonitis -Oxygenation to be administered and titrated as needed to maintain SPO2 equal to or greater than 90% -Telemetry monitoring. -Continue trending inflammatory markers -Encourage Incentive Spirometry 10-15x hourly while awake -Steroids: Decadron 6 mg daily -Continue vitamin C, Vitamin D, and Zinc. -Pulmonology following, appreciate further recommendations. -DVT prophylaxis with Lovenox. -Strict Droplet plus Contact precautions -Remdesivir, day 2 of 5 Chronic conditions: Complex developmental delay, seizure disorder, scoliosis, hypothyroidism, and recently diagnosed von Willebrand's disease -Patient to continue with daily home medication regimen. We will continue to provide safe and supportive treatment with assistance as needed. CODE STATUS: Full Code DVT prophylaxis: Lovenox Discussed with: Patient, Mother, and RN Anticipated discharge date: 2-[address]: Home A total of 35 minutes was spent on the care of this complex patient more than 50% of the time was spent in counseling and care coordination. I reviewed the documentation as provided by the NAIF above, who is the original author of this note. I agree with the documented assessment and plan, with the following changes: none Objective - Vital Signs Vital signs: Vital Signs Temp 98.4 F 08/01/21 06:55 Pulse 50 L 08/01/21 03:00 Resp 18 08/01/21 03:00 BP 106/56 08/01/21 03:00 Pulse Ox 97 08/01/21 03:00 FiO2 - Labs CBC & Chem 7: 07/30/21 21:31 07/30/21 21:31 Labs: Microbiology - Last 24 Hours (Table) 07/30/21 20:00 Urine Culture - Preliminary Urine,Voided
--- NOTE | 2021-08-01 12:08 | P.PN ---
Subjective Progress Note Date: 08/01/21 Principal diagnosis: Hypoxia, fever, COVID-19 The patient is a 26-year-old female with a PMH of an unknown complex developmental delay, seizure disorder, scoliosis, and recently diagnosed von Willebrand's disease, who is brought into the emergency room by her mother for hypoxia and fever. The mother reports that she herself had tested positive for COVID several days ago and had been trying to maintain her distance from the patient. She reports however that the patient had developed a persistent cough 1-2 days ago, for which she took the patient was in urgent care earlier today where she was noted to be hypoxic to 88% on room air as well as febrile. They were subsequently directed to the emergency room. The mother also reports noticing the patient's lower extremity bilateral swelling, for which she routinely takes Lasix 40 mg daily over the past 6 months. She states however that despite compliance with the medication, the lower extremity swelling significantly worsened over the past 2 days. She also states finding out recently that the patient has one Willebrand's disease, which was stated as a reason for which the patient could not undergo dental surgery for her poor dentition. As per the mother, the patient's expressive and receptive language is limited and she that she is weary of healthcare worker. At the time of interview, the patient repeatedly said "I am fine" and refused to answer questions further. The mother stated that this typical behavior for her. No meaningful review of systems could thereby be obtained. Chest CTA in the emergency room was consistent with interstitial pneumonia. EKG reveals sinus tachycardia at 1 15 bpm with T-wave inversion in leads 3, aVF, and V3 to V4. Lower extremity venous Doppler was negative for DVT. Laboratory evaluation was remarkable for WBC count of 12.1, coronavirus PCR positive, and d-dimer 1.44. SpO2 in the emergency room was 85% on room air with T-max 100.6F. On 08/01/2021 patient seen in follow-up in the emergency room where she is awaiting a bed on medical surgical floor, patient is much more awake, interactive, she sit up on the edges of bed, breathing comfortably, she is on 2 L of oxygen pulse ox is 97%. No fevers overnight, patient has been started on a Remdesivir for COVID-19 infection. Today's labs are still pending including inflammatory markers, d- dimer, and pro-calcitonin level. Patient continues on Decadron 6 g daily, she is on Lovenox 40 mg daily, she is on multivitamins. No nausea or vomiting, no diarrhea, no abdominal pain. She is tolerating oral diet. Her mother is at the bedside. Objective - Vital Signs Vital signs: Vital Signs Temp 98.4 F 08/01/21 06:55 Pulse 50 L 08/01/21 03:00 Resp 18 08/01/21 03:00 BP 106/56 08/01/21 03:00 Pulse Ox 97 08/01/21 03:00 FiO2 - Exam GENERAL EXAM: Alert, very pleasant, 26-year-old white female, admitted liters of oxygen pulse ox 97%, patient is able to provide simple yes or no answers, however she does have difficulty with verbal communication related to her history of developmental delay, seizure disorder, comfortable in no apparent distress. HEAD: Normocephalic/atraumatic. EYES: Normal reaction of pupils, equal size. Conjunctiva pink, sclera white. NOSE: Clear with pink turbinates. THROAT: No erythema or exudates. NECK: No masses, no JVD, no thyroid enlargement, no adenopathy. CHEST: No chest wall deformity. Symmetrical expansion. LUNGS: Equal air entry with no crackles, wheeze, rhonchi or dullness. CVS: Regular rate and rhythm, normal S1 and S2, no gallops, no murmurs, no rubs ABDOMEN: Soft, nontender. No hepatosplenomegaly, normal bowel sounds, no guarding or rigidity. EXTREMITIES: No clubbing, no edema, no cyanosis, 2+ pulses and upper and lower extremities. MUSCULOSKELETAL: Muscle strength and tone normal. SPINE: No scoliosis or deformity SKIN: No rashes CENTRAL NERVOUS SYSTEM: Alert and oriented -3. No focal deficits, tone is normal in all 4 extremities. PSYCHIATRIC: Alert and oriented -3. Appropriate affect. Intact judgment and insight. - Labs CBC & Chem 7: 07/30/21 21:31 07/30/21 21:31 Labs: Microbiology - Last 24 Hours (Table) 07/30/21 20:00 Urine Culture - Preliminary Urine,Voided Assessment and Plan Plan: Assessment: #1. Acute hypoxic respiratory failure secondary to COVID-19 pneumonia, patient presented to the hospital on 07/31/2021 with 1 day history of symptoms with fever, weakness, hypoxia. Was started on Remdesivir on 07/31/2021. Patient has received 2 more during the shots, however no Booster #2. History of developmental delay #3. History of cleft palate #4. History of severe scoliosis with multiple corrective surgeries on the spiny #5. Possible urinary tract infection #6. Elevated d-dimer without evidence of DVT on CTA chest #7. History of von Willebrand disease Plan: Continue Remdesivir, today is day 2 of treatment Continue Decadron, continue multivitamins and prophylactic anticoagulation Continue supportive treatment, continue multivitamins Clinically patient seems to be improved, much more awake, she's been afebrile, vital signs are stable She continues to clinically improve and remained stable, she may be considered for discharge home in the next 24 hours, and there is no need to complete a full 5 day course of Remdesivir as long as there is clinical improvement I have personally seen and examined the patient, performed the documentation and the assessment and plan as written. Number of minutes spent on the visit: [10] Time with Patient: Less than 30
[2021-08-01] MEDS: CHOLECALCIFEROL 125 MCG (5000 IU) TABLET PO SCH (14:25)
[2021-08-01] MEDS: ZINC SULFATE 220 MG CAP PO SCH (14:25)
[2021-08-01] MEDS: dexAMETHasone 2 MG TAB PO SCH (14:25)
[2021-08-01] MEDS: SERTRALINE 50 MG TAB PO SCH (14:25)
[2021-08-01] MEDS: ENOXAPARIN 40 MG/0.4 ML SYRINGE SQ SCH (14:25)
[2021-08-01] MEDS: FUROSEMIDE 40 MG TAB PO SCH (14:25)
[2021-08-01] MEDS: ASCORBIC ACID 500 MG TAB PO SCH (14:25)
[2021-08-01 15:24] LABS: C Reactive Protein 7.3 mg/dL (<1.0)
[2021-08-01] MEDS: REMDESIVIR 100 MG in SODIUM CHLORIDE 0.9% 250 ML IVPB SCH (16:58)
[2021-08-01] MEDS: OXYBUTYNIN 10 MG TAB.ER.24 PO SCH (22:27)
[2021-08-02] MEDS: LEVOTHYROXINE 25 MCG TAB PO SCH (06:18)
[2021-08-02 09:57] LABS: HCT 43.5 % (37.2-46.3); HGB 13.1 g/dL (12.0-15.0); MCH 26.8 pg (27.0-32.0); MCHC 30.1 g/dL (32.0-37.0); MCV 89.1 fL (80.0-97.0); Mean Platelet Volume 9.6 fL (9.5-12.2); NRBC Per 100 WBC 0 /100 WBCS (0.0-0.0); Platelet Count 327 X 10*3/uL (140-440); RBC 4.88 X 10*6/uL (4.10-5.20); RDW 13.9 % (11.5-14.5); WBC 7.59 X 10*3/uL (4.50-10.00)
[2021-08-02] MEDS: ZINC SULFATE 220 MG CAP PO SCH (10:11)
[2021-08-02] MEDS: ASCORBIC ACID 500 MG TAB PO SCH (10:11)
[2021-08-02] MEDS: FUROSEMIDE 40 MG TAB PO SCH (10:11)
[2021-08-02] MEDS: ENOXAPARIN 40 MG/0.4 ML SYRINGE SQ SCH (10:11)
[2021-08-02] MEDS: dexAMETHasone 2 MG TAB PO SCH (10:12)
[2021-08-02] MEDS: SERTRALINE 50 MG TAB PO SCH (10:12)
[2021-08-02] MEDS: CHOLECALCIFEROL 125 MCG (5000 IU) TABLET PO SCH (10:12)
--- NOTE | 2021-08-02 11:41 | P.PN ---
Subjective Progress Note Date: 08/02/21 Principal diagnosis: Hypoxia, fever, COVID-19 The patient is a 26-year-old female with a PMH of an unknown complex developmental delay, seizure disorder, scoliosis, and recently diagnosed von Willebrand's disease, who is brought into the emergency room by her mother for hypoxia and fever. The mother reports that she herself had tested positive for COVID several days ago and had been trying to maintain her distance from the patient. She reports however that the patient had developed a persistent cough 1-2 days ago, for which she took the patient was in urgent care earlier today where she was noted to be hypoxic to 88% on room air as well as febrile. They were subsequently directed to the emergency room. The mother also reports noticing the patient's lower extremity bilateral swelling, for which she routinely takes Lasix 40 mg daily over the past 6 months. She states however that despite compliance with the medication, the lower extremity swelling significantly worsened over the past 2 days. She also states finding out recently that the patient has one Willebrand's disease, which was stated as a reason for which the patient could not undergo dental surgery for her poor dentition. As per the mother, the patient's expressive and receptive language is limited and she that she is weary of healthcare worker. At the time of interview, the patient repeatedly said "I am fine" and refused to answer questions further. The mother stated that this typical behavior for her. No meaningful review of systems could thereby be obtained. Chest CTA in the emergency room was consistent with interstitial pneumonia. EKG reveals sinus tachycardia at 1 15 bpm with T-wave inversion in leads 3, aVF, and V3 to V4. Lower extremity venous Doppler was negative for DVT. Laboratory evaluation was remarkable for WBC count of 12.1, coronavirus PCR positive, and d-dimer 1.44. SpO2 in the emergency room was 85% on room air with T-max 100.6F. On 08/01/2021 patient seen in follow-up in the emergency room where she is awaiting a bed on medical surgical floor, patient is much more awake, interactive, she sit up on the edges of bed, breathing comfortably, she is on 2 L of oxygen pulse ox is 97%. No fevers overnight, patient has been started on a Remdesivir for COVID-19 infection. Today's labs are still pending including inflammatory markers, d- dimer, and pro-calcitonin level. Patient continues on Decadron 6 g daily, she is on Lovenox 40 mg daily, she is on multivitamins. No nausea or vomiting, no diarrhea, no abdominal pain. She is tolerating oral diet. Her mother is at the bedside. On 08/02/2021 patient seen in follow-up on medical surgical floor. She is awake and alert, in no acute distress, on 2 L of oxygen her pulse ox is 94%, patient has been ambulate into the bathroom with limited assistance, tolerates activity well however she does desaturate to 79% with exertion on room air. Low-grade fevers today with a temp of 99.3. Otherwise vital signs have been stable, her mom is at the bedside and has been staying at the bedside 10/09 to assist with care. She states the patient is starting to cough up some stuff. Patient continues on Remdesivir, Decadron, multivitamins, prophylactic anticoagulation, no nausea or vomiting, no diarrhea no abdominal pain, she is tolerating oral diet. Labs have been reviewed, white blood cell count is improving is down to 7.5, hemoglobin is 13.1, d-dimer is improving and is down to 0.73, her LDH was within normal limits at 468, and CRP is 7.3. Pro-calcitonin level was negative at 0.06 Objective - Vital Signs Vital signs: Vital Signs Temp 97.8 F 08/02/21 11:08 Pulse 59 L 08/02/21 06:00 Resp 22 08/02/21 11:08 BP 127/77 08/02/21 11:08 Pulse Ox 97 08/02/21 11:08 FiO2 Intake & Output 08/01/21 08/02/21 08/02/21 18:59 06:59 18:59 Other: # Voids 1 1 # Bowel Movements 2 - Exam GENERAL EXAM: Alert, very pleasant, 26-year-old white female, on 2 L of oxygen pulse ox 94%, patient is able to provide simple yes or no answers, however she does have difficulty with verbal communication related to her history of developmental delay, seizure disorder, comfortable in no apparent distress. HEAD: Normocephalic/atraumatic. EYES: Normal reaction of pupils, equal size. Conjunctiva pink, sclera white. NOSE: Clear with pink turbinates. THROAT: No erythema or exudates. NECK: No masses, no JVD, no thyroid enlargement, no adenopathy. CHEST: No chest wall deformity. Symmetrical expansion. LUNGS: Equal air entry with no crackles, wheeze, rhonchi or dullness. CVS: Regular rate and rhythm, normal S1 and S2, no gallops, no murmurs, no rubs ABDOMEN: Soft, nontender. No hepatosplenomegaly, normal bowel sounds, no guarding or rigidity. EXTREMITIES: No clubbing, no edema, no cyanosis, 2+ pulses and upper and lower extremities. MUSCULOSKELETAL: Muscle strength and tone normal. SPINE: No scoliosis or deformity SKIN: No rashes CENTRAL NERVOUS SYSTEM: Alert and oriented -3. No focal deficits, tone is normal in all 4 extremities. PSYCHIATRIC: Alert and oriented -3. Appropriate affect. Intact judgment and insight. - Labs CBC & Chem 7: 08/02/21 04:13 07/30/21 21:31 Labs: Abnormal Lab Results - Last 24 Hours (Table) 08/01/21 08/01/21 08/02/21 Range/Units 14:31 14:31 04:13 MCH 26.8 L (27.0-32.0) pg MCHC 30.1 L (32.0-37.0) g/dL D-Dimer 1.11 H (<0.60) mg/L FEU C-Reactive Protein 7.3 H (<1.0) mg/dL 08/02/21 Range/Units 04:13 MCH (27.0-32.0) pg MCHC (32.0-37.0) g/dL D-Dimer 0.73 H (<0.60) mg/L FEU C-Reactive Protein (<1.0) mg/dL Microbiology - Last 24 Hours (Table) 07/30/21 20:00 Urine Culture - Final Urine,Voided Assessment and Plan Plan: Assessment: #1. Acute hypoxic respiratory failure secondary to COVID-19 pneumonia, patient presented to the hospital on 07/31/2021 with 1 day history of symptoms with fever, weakness, hypoxia. Was started on Remdesivir on 07/31/2021. Patient has received 2 Moderna shots, however no Booster #2. History of developmental delay #3. History of cleft palate #4. History of severe scoliosis with multiple corrective surgeries on the spiny #5. Possible urinary tract infection #6. Elevated d-dimer without evidence of DVT on CTA chest #7. History of von Willebrand disease Plan: Patient has been stable although still having some low-grade fevers, and hypoxia, requiring 2 L of oxygen, but does desaturate to 79% with ambulation Continue Remdesivir, today is day 3 of treatment Continue Decadron, continue multivitamins and prophylactic anticoagulation Continue supportive treatment, continue multivitamins Inflammatory markers were reviewed, LDH is within normal limits, CRP is mildly elevated, pro-calcitonin level is negative Hold discharge, continue current inpatient treatment, continue Remdesivir, steroids, anticoagulation. We'll continue to follow patient's clinical course I have personally seen and examined the patient, performed the documentation and the assessment and plan as written. Number of minutes spent on the visit: [10] Time with Patient: Less than 30
[2021-08-02 12:02] LABS: ALT 24 U/L (8-44); AST 24 U/L (13-35); African American GFR (CKD) 166.6 (60.0-200.0); Albumin 3.7 g/dL (3.8-4.9); Albumin/Globulin Ratio 1.19 (1.60-3.17); Alkaline Phosphatase 82 U/L (41-126); Blood Urea Nitrogen 11.8 mg/dL (9.0-27.0); Calcium 9.1 mg/dL (8.7-10.3); Carbon Dioxide 32.2 mmol/L (20.0-27.5); Chloride 95 mmol/L (96-109); Globulin 3.1 g/dL (1.6-3.3); Glucose 93 mg/dL (70-110); Magnesium 2.1 mg/dL (1.5-2.4); Non-African American GFR(CKD) 143.7 (60.0-200.0); Potassium 5.2 mmol/L (3.5-5.5); Sodium 143 mmol/L (135-145); Total Bilirubin <0.15 mg/dL (0.30-1.20); Total Protein 6.8 g/dL (6.2-8.2)
[2021-08-02 12:32] LABS: LDH 254 U/L (120-246)
--- NOTE | 2021-08-02 13:46 | P.PN ---
Subjective Progress Note Date: 08/02/21 Hospital Course: The patient is a 26-year-old female with a past medical history of complex developmental delay, seizure disorder, scoliosis, hypothyroidism, and recently diagnosed von Willebrand's disease. She presented to the emergency department overnight with her mother/caregiver for reports of hypoxia and fever accompanied by a persistent cough 2 days and worsening bilateral lower extremity edema. Patient was reportedly taken to urgent care center where she was diagnosed with Covid and found to be hypoxic with SpO2 of 88% on room air. Patient was then transferred to the emergency department. In the emergency department patient underwent full evaluation. Labs revealed leukocytosis with WBC count of 12.1. Elevated d-dimer of 1.44. Hyponatremia with sodium of 134, hypochloremia with chloride of 96, and elevated carbon dioxide of 31. Patient tested positive for coronavirus. Chest x-ray completed negative for acute cardiopulmonary process. CTA negative for PE, consistent with bilateral pneumonia. Bilateral lower extremity venous Doppler negative for DVTs. EKG showing sinus tachycardia at 115 bpm with T-wave inversion in leads III, aVF, V3, and V4. Patient's vital signs were stable, she did have a pulse rate of 104 with a low-grade temp of 100.6F. SpO2 did drop to 85% on room air requiring oxygen supplementation. Patient was then admitted under our services with consultation to pulmonology and was started on Remdesivir 07/31/21. Physical examination: Patient seen and fully evaluated at the bedside this morning. Patient lives with her mother and slightly reserved upon interaction. Patient's mother reports patient has a fairly healthcare workers. Patient did talk and answer select questions, but was noticed to be reserved. Patient continues to have diffuse rhonchi and remains on 2 L O2 via nasal cannula. Patient denies having any pain or complaints both when assessed by myself and when asked by her mother. General: non toxic, no distress, appears chronically ill Derm: warm, dry Head: atraumatic, normocephalic, symmetric Eyes: no lid lag, anicteric sclera Mouth: no lip lesion, mucus membranes moist. Neck supple with full range of motion. Cardiovascular: S1S2 reg, no murmur, positive posterior tibial pulse bilaterally, lower extremity edema Lungs: Diffuse rhonchi noted, no wheezes/rales/crackles and no accessory muscle use Abdominal: soft, nontender to palpation, no guarding, no appreciable organomega ly Ext: Growth restriction, short stature, patient moving all extremities independently. Did not assess gait. Psych/Neuro: Speech limited. Moving all extremities independently. Patient minimally verbal, reserved interaction secondary to mother's reports of patient's fear of healthcare workers. Assessment/plan: Acute respiratory failure with hypoxia secondary to COVID 19 pneumonitis -Oxygenation to be administered and titrated as needed to maintain SPO2 equal to or greater than 90% -Telemetry monitoring. -Continue trending inflammatory markers -Encourage Incentive Spirometry 10-15x hourly while awake -Steroids: Decadron 6 mg daily -Continue vitamin C, Vitamin D, and Zinc. -Pulmonology following, appreciate further recommendations. -DVT prophylaxis with Lovenox. -Strict Droplet plus Contact precautions -Remdesivir, day 3 of 5 Chronic conditions: Complex developmental delay, seizure disorder, scoliosis, hypothyroidism, and recently diagnosed von Willebrand's disease -Patient to continue with daily home medication regimen. We will continue to provide safe and supportive treatment with assistance as needed. CODE STATUS: Full Code DVT prophylaxis: Lovenox Discussed with: Patient, Mother, and RN Anticipated discharge date: 2-[address]: Home A total of 35 minutes was spent on the care of this complex patient more than 50% of the time was spent in counseling and care coordination. Objective - Vital Signs Vital signs: Vital Signs Temp 97.8 F 08/02/21 11:08 Pulse 59 L 08/02/21 06:00 Resp 22 08/02/21 11:08 BP 127/77 08/02/21 11:08 Pulse Ox 80 L 08/02/21 12:00 FiO2 Intake & Output 08/01/21 08/02/21 08/02/21 18:59 06:59 18:59 Other: # Voids 1 1 # Bowel Movements 2 - Labs CBC & Chem 7: 08/02/21 04:13 08/02/21 04:13 Labs: Abnormal Lab Results - Last 24 Hours (Table) 08/01/21 08/01/21 08/02/21 Range/Units 14:31 14:31 04:13 MCH 26.8 L (27.0-32.0) pg MCHC 30.1 L (32.0-37.0) g/dL D-Dimer 1.11 H (<0.60) mg/L FEU Chloride (96-109) mmol/L Carbon Dioxide (20.0-27.5) mmol/L Creatinine (0.6-1.5) mg/dL BUN/Creatinine Ratio (12.00-20.00) Ratio Total Bilirubin (0.30-1.20) mg/dL Lactate Dehydrogenase (120-246) U/L C-Reactive Protein 7.3 H (<1.0) mg/dL Albumin (3.8-4.9) g/dL Albumin/Globulin Ratio (1.60-3.17) g/dL 08/02/21 08/02/21 Range/Units 04:13 04:13 MCH (27.0-32.0) pg MCHC (32.0-37.0) g/dL D-Dimer 0.73 H (<0.60) mg/L FEU Chloride 95 L (96-109) mmol/L Carbon Dioxide 32.2 H (20.0-27.5) mmol/L Creatinine 0.4 L (0.6-1.5) mg/dL BUN/Creatinine Ratio 29.50 H (12.00-20.00) Ratio Total Bilirubin <0.15 L (0.30-1.20) mg/dL Lactate Dehydrogenase 254 H (120-246) U/L C-Reactive Protein 5.90 H (<1.0) mg/dL Albumin 3.7 L (3.8-4.9) g/dL Albumin/Globulin Ratio 1.19 L (1.60-3.17) g/dL Microbiology - Last 24 Hours (Table) 07/30/21 20:00 Urine Culture - Final Urine,Voided
[2021-08-02] MEDS: REMDESIVIR 100 MG in SODIUM CHLORIDE 0.9% 250 ML IVPB SCH (17:57)
[2021-08-02] MEDS: OXYBUTYNIN 10 MG TAB.ER.24 PO SCH (20:53)
[2021-08-03] MEDS: LEVOTHYROXINE 25 MCG TAB PO SCH (06:04)
[2021-08-03] MEDS: FUROSEMIDE 40 MG TAB PO SCH (08:38)
[2021-08-03] MEDS: SERTRALINE 50 MG TAB PO SCH (08:38)
[2021-08-03] MEDS: ZINC SULFATE 220 MG CAP PO SCH (08:38)
[2021-08-03] MEDS: ASCORBIC ACID 500 MG TAB PO SCH (08:38)
[2021-08-03] MEDS: CHOLECALCIFEROL 125 MCG (5000 IU) TABLET PO SCH (08:38)
[2021-08-03] MEDS: ENOXAPARIN 40 MG/0.4 ML SYRINGE SQ SCH (08:39)
[2021-08-03] MEDS: dexAMETHasone 2 MG TAB PO SCH (08:39)
[2021-08-03 10:11] LABS: Basophils # (A) 0.1 k/uL (0-0.2); Basophils % (A) 1 %; Eosinophils # (A) 0.1 k/uL (0-0.7); Eosinophils % (A) 1 %; HCT 45.3 % (34.0-46.0); Lymphocytes # (A) 1.6 k/uL (1.0-4.8); Lymphocytes % (A) 16 %; MCH 27.4 pg (25.0-35.0); MCHC 30.9 g/dL (31.0-37.0); MCV 88.7 fL (80.0-100.0); Mean Platelet Volume 6.8; Monocytes # (A) 0.5 k/uL (0-1.0); Monocytes % (A) 5 %; Neutrophils # (A) 7.3 k/uL (1.3-7.7); Neutrophils % (A) 75 %; Platelet Count 336 k/uL (150-450); RBC 5.11 m/uL (3.80-5.40); RDW 13.7 % (11.5-15.5); WBC 9.8 k/uL (3.8-10.6)
[2021-08-03 10:23] LABS: African American GFR (CKD) >90 (>60 ml/min/1.73 sqM); Anion Gap 4 mmol/L; Blood Urea Nitrogen 16 mg/dL (7-17); Calcium 8.8 mg/dL (8.4-10.2); Carbon Dioxide 39 mmol/L (22-30); Chloride 94 mmol/L (98-107); Glucose 199 mg/dL (74-99); Non-African American GFR(CKD) >90 (>60 ml/min/1.73 sqM); Potassium 4.4 mmol/L (3.5-5.1); Sodium 137 mmol/L (137-145)
--- NOTE | 2021-08-03 13:18 | CDI ---
Documentation Clarification Form Date: 08/03/2021 12:49:07 PM From: Tiffany Rehman RN CCS Admit Date: 07/30/2021 10:40:00 PM Patient Name: Nai Whitley Visit Number: [id number] Discharge Date: ATTENTION: The Clinical Documentation Specialists (CDI) and [facility] Coding Staff appreciate your assistance in clarifying documentation. Please respond to the clarification below the line at the bottom and electronically sign. The CDI & [facility] Coding staff will review the response and follow-up if needed. Please note: Queries are made part of the Legal Health Record. If you have any questions, please contact the author of this message via ITS. Dr. Jasmyne Guardado The patient presented with the following clinical indicators. Additional clarification regarding the etiology/cause of the clinical indicators is requested. History/Risk Factors: 26-year-old female presents to the ED with hypoxia and fever sent in from urgent care, tested positive for COVID and having swelling in her legs. Medical History: von Willebrands , complex developmental delay, Clinical Indicators: Admitted with COVID 19 Pneumonia and Hypoxic Respiratory Failure WBC: 07/30 12.1 COVID 19: 07/30 Positive Vitals signs: 07/30 19:30 B/P 121/63; HR 110; Temp 100.6 F; Oral RR 23; 92 SpO2 92% 07/30 21:00 B/P 135/81; HR 105; RR 22; SpO2 85% room air CTA/12 Mild increased pulmonary interstitial density that could be interstitial edema and pneumonia. Treatment: 07/30 Lasix 40mg IV x 1; 07/31 Hexadrol 6mg PO Daily; 07/31 Vitamin C 1,000mg PO Daily; 07/31 Vitamin D3 125mcg PO Daily; 07/31 Zinc Sulfate 220mg PO Daily; 07/31 Remdesivir 200mg IVPB x 6 bags; 08/01 Lasix 40mg PO Daily In your professional opinion, please clarify if these findings signify one of the following conditions: [ ] Sepsis POA due to COVID 19 [ x ] Sepsis ruled out [ ] Other, please specify [ ] Unable to determine SIRS Criteria: 2 or more of the following may indicate SIRS -Temperature < 96.8F (36C) or > 101.0F (38.3C) -Heart Rate > 90 bpm -Respiratory Rate > 20 breaths/min or PaCO2 < 32 mmHg -White Blood Cell Count > 12,000 or < 4,000 cells/mm3 or > 10% bands (Template Last Reviewed: March 2020) MTDD
--- NOTE | 2021-08-03 14:03 | P.PN ---
Subjective Hospital Course: The patient is a 26-year-old female with a past medical history of complex developmental delay, seizure disorder, scoliosis, hypothyroidism, and recently diagnosed von Willebrand's disease. She presented to the emergency department overnight with her mother/caregiver for reports of hypoxia and fever accompanied by a persistent cough 2 days and worsening bilateral lower extremity edema. Patient was reportedly taken to urgent care center where she was diagnosed with Covid and found to be hypoxic with SpO2 of 88% on room air. Patient was then transferred to the emergency department. In the emergency department patient underwent full evaluation. Labs revealed leukocytosis with WBC count of 12.1. Elevated d-dimer of 1.44. Hyponatremia with sodium of 134, hypochloremia with chloride of 96, and elevated carbon dioxide of 31. Patient tested positive for coronavirus. Chest x-ray completed negative for acute cardiopulmonary process. CTA negative for PE, consistent with bilateral pneumonia. Bilateral lower extremity venous Doppler negative for DVTs. EKG showing sinus tachycardia at 1 15 bpm with T-wave inversion in leads III, aVF, V3, and V4. Patient's vital signs were stable, she did have a pulse rate of 104 with a low-grade temp of 100.6F. SpO2 did drop to 85% on room air requiring oxygen supplementation. Patient was then admitted under our services with consultation to pulmonology and was started on Remdesivir 07/31/21. Physical examination: Patient seen and fully evaluated at the bedside this morning. Patient lives with her mother and slightly reserved upon interaction. Patient's mother reports patient has a fairly healthcare workers. Patient did talk and answer select questions, but was noticed to be reserved. Patient remains on 2 L O2 via nasal cannula. Pulse ox dropped to 77% room air General: non toxic, no distress, appears chronically ill Derm: warm, dry Head: atraumatic, normocephalic, symmetric Eyes: no lid lag, anicteric sclera Mouth: no lip lesion, mucus membranes moist. Neck supple with full range of motion. Cardiovascular: S1S2 reg, no murmur, positive posterior tibial pulse bilaterally, lower extremity edema Lungs: Diffuse rhonchi noted, no wheezes/rales/crackles and no accessory muscle use Abdominal: soft, nontender to palpation, no guarding, no appreciable organomegaly Ext: Growth restriction, short stature, patient moving all extremities independently. Did not assess gait. Psych/Neuro: Speech limited. Moving all extremities independently. Patient minimally verbal, reserved interaction secondary to mother's reports of keena ent's fear of healthcare workers. Assessment/plan: Acute respiratory failure with hypoxia secondary to COVID 19 pneumonitis -Oxygenation to be administered and titrated as needed to maintain SPO2 equal to or greater than 90% -Telemetry monitoring. -Continue trending inflammatory markers -Encourage Incentive Spirometry 10-15x hourly while awake -Steroids: Decadron 6 mg daily -Continue vitamin C, Vitamin D, and Zinc. -Pulmonology following, appreciate further recommendations. -DVT prophylaxis with Lovenox. -Strict Droplet plus Contact precautions -Remdesivir, day 4 of 5 Chronic conditions: Complex developmental delay, seizure disorder, scoliosis, hypothyroidism, and recently diagnosed von Willebrand's disease -Patient to continue with daily home medication regimen. We will continue to provide safe and supportive treatment with assistance as needed. CODE STATUS: Full Code DVT prophylaxis: Lovenox Discussed with: Patient, Mother, and RN Anticipated discharge date: [address]: Home A total of 35 minutes was spent on the care of this complex patient more than 50% of the time was spent in counseling and care coordination. Objective - Vital Signs Vital signs: Vital Signs Temp 98.9 F 08/03/21 10:03 Pulse 63 08/03/21 10:03 Resp 22 08/03/21 10:03 BP 146/85 08/03/21 10:03 Pulse Ox 77 L 08/03/21 10:41 FiO2 Intake & Output 08/02/21 08/03/21 08/03/21 18:59 06:59 18:59 Other: Voiding Method Toilet Toilet # Voids 5 2 - Labs CBC & Chem 7: 08/03/21 09:53 08/03/21 09:53 Labs: Abnormal Lab Results - Last 24 Hours (Table) 08/03/21 08/03/21 Range/Units 09:53 09:53 MCHC 30.9 L (31.0-37.0) g/dL Chloride 94 L (98-107) mmol/L Carbon Dioxide 39 H (22-30) mmol/L Creatinine 0.51 L (0.52-1.04) mg/dL Glucose 199 H (74-99) mg/dL
--- NOTE | 2021-08-03 14:22 | P.PN ---
Subjective Progress Note Date: 08/03/21 Principal diagnosis: Hypoxia, fever, COVID-19 The patient is a 26-year-old female with a PMH of an unknown complex developmental delay, seizure disorder, scoliosis, and recently diagnosed von Willebrand's disease, who is brought into the emergency room by her mother for hypoxia and fever. The mother reports that she herself had tested positive for COVID several days ago and had been trying to maintain her distance from the patient. She reports however that the patient had developed a persistent cough 1-2 days ago, for which she took the patient was in urgent care earlier today where she was noted to be hypoxic to 88% on room air as well as febrile. They were subsequently directed to the emergency room. The mother also reports noticing the patient's lower extremity bilateral swelling, for which she routinely takes Lasix 40 mg daily over the past 6 months. She states however that despite compliance with the medication, the lower extremity swelling significantly worsened over the past 2 days. She also states finding out recently that the patient has one Willebrand's disease, which was stated as a reason for which the patient could not undergo dental surgery for her poor dentition. As per the mother, the patient's expressive and receptive language is limited and she that she is weary of healthcare worker. At the time of interview, the patient repeatedly said "I am fine" and refused to answer questions further. The mother stated that this typical behavior for her. No meaningful review of systems could thereby be obtained. Chest CTA in the emergency room was consistent with interstitial pneumonia. EKG reveals sinus tachycardia at 1 15 bpm with T-wave inversion in leads 3, aVF, and V3 to V4. Lower extremity venous Doppler was negative for DVT. Laboratory evaluation was remarkable for WBC count of 12.1, coronavirus PCR positive, and d-dimer 1.44. SpO2 in the emergency room was 85% on room air with T-max 100.6F. On 08/01/2021 patient seen in follow-up in the emergency room where she is awaiting a bed on medical surgical floor, patient is much more awake, interactive, she sit up on the edges of bed, breathing comfortably, she is on 2 L of oxygen pulse ox is 97%. No fevers overnight, patient has been started on a Remdesivir for COVID-19 infection. Today's labs are still pending including inflammatory markers, d- dimer, and pro-calcitonin level. Patient continues on Decadron 6 g daily, she is on Lovenox 40 mg daily, she is on multivitamins. No nausea or vomiting, no diarrhea, no abdominal pain. She is tolerating oral diet. Her mother is at the bedside. On 08/02/2021 patient seen in follow-up on medical surgical floor. She is awake and alert, in no acute distress, on 2 L of oxygen her pulse ox is 94%, patient has been ambulate into the bathroom with limited assistance, tolerates activity well however she does desaturate to 79% with exertion on room air. Low-grade fevers today with a temp of 99.3. Otherwise vital signs have been stable, her mom is at the bedside and has been staying at the bedside 10/09 to assist with care. She states the patient is starting to cough up some stuff. Patient continues on Remdesivir, Decadron, multivitamins, prophylactic anticoagulation, no nausea or vomiting, no diarrhea no abdominal pain, she is tolerating oral diet. Labs have been reviewed, white blood cell count is improving is down to 7.5, hemoglobin is 13.1, d-dimer is improving and is down to 0.73, her LDH was within normal limits at 468, and CRP is 7.3. Pro-calcitonin level was negative at 0.06 On 08/03/2021 patient seen in follow-up on medical surgical floor. Patient is resting comfortably in bed, in no acute distress, she's had no acute events overnight, she has been afebrile, breathing comfortably, denies any chest discomfort, patient has been ambulating in the room and to the bathroom, and she has been noted to be desaturating to 70% on room air with ambulation. She is on day 4 of Remdesivir treatment, she also continues on Decadron, multivitamins, and prophylactic anticoagulation, today's labs have been reviewed, her white blood cell count is 9.8, hemoglobin is 14, sodium is 137, potassium is 4.4, chloride is 94, CO2 39, BUN of 16 creatinine 0.51. CRP and LDH are improving, LDH is down to 254, and CRP is 5.9. Objective - Vital Signs Vital signs: Vital Signs Temp 98.6 F 08/03/21 14:00 Pulse 64 08/03/21 14:00 Resp 19 08/03/21 14:00 BP 132/73 08/03/21 14:00 Pulse Ox 97 08/03/21 14:00 FiO2 Intake & Output 08/02/21 08/03/21 08/03/21 18:59 06:59 18:59 Other: Voiding Method Toilet Toilet # Voids 5 2 - Exam GENERAL EXAM: Alert, very pleasant, 26-year-old white female, on 2 L of oxygen pulse ox 94%, patient is able to provide simple yes or no answers, however she does have difficulty with verbal communication related to her history of developmental delay, seizure disorder, comfortable in no apparent distress. HEAD: Normocephalic/atraumatic. EYES: Normal reaction of pupils, equal size. Conjunctiva pink, sclera white. NOSE: Clear with pink turbinates. THROAT: No erythema or exudates. NECK: No masses, no JVD, no thyroid enlargement, no adenopathy. CHEST: No chest wall deformity. Symmetrical expansion. LUNGS: Equal air entry with no crackles, wheeze, rhonchi or dullness. CVS: Regular rate and rhythm, normal S1 and S2, no gallops, no murmurs, no rubs ABDOMEN: Soft, nontender. No hepatosplenomegaly, normal bowel sounds, no guarding or rigidity. EXTREMITIES: No clubbing, no edema, no cyanosis, 2+ pulses and upper and lower extremities. MUSCULOSKELETAL: Muscle strength and tone normal. SPINE: No scoliosis or deformity SKIN: No rashes CENTRAL NERVOUS SYSTEM: Alert and oriented -3. No focal deficits, tone is normal in all 4 extremities. PSYCHIATRIC: Alert and oriented -3. Appropriate affect. Intact judgment and insight. - Labs CBC & Chem 7: 08/03/21 09:53 08/03/21 09:53 Labs: Abnormal Lab Results - Last 24 Hours (Table) 08/03/21 08/03/21 Range/Units 09:53 09:53 MCHC 30.9 L (31.0-37.0) g/dL Chloride 94 L (98-107) mmol/L Carbon Dioxide 39 H (22-30) mmol/L Creatinine 0.51 L (0.52-1.04) mg/dL Glucose 199 H (74-99) mg/dL Assessment and Plan Plan: Assessment: #1. Acute hypoxic respiratory failure secondary to COVID-19 pneumonia, patient presented to the hospital on 07/31/2021 with 1 day history of symptoms with fever, weakness, hypoxia. Was started on Remdesivir on 07/31/2021. Patient has received 2 Moderna shots, however no Booster #2. History of developmental delay #3. History of cleft palate #4. History of severe scoliosis with multiple corrective surgeries on the spiny #5. Possible urinary tract infection #6. Elevated d-dimer without evidence of DVT on CTA chest #7. History of von Willebrand disease Plan: Continue Remdesivir, today is day 4 of treatment Continue Decadron, continue multivitamins and prophylactic anticoagulation Clinically patient has remained stable, She does desaturate to 77% with ambulation Most likely she will need oxygen at discharge We recommend completing full course of Remdesivir which will be tomorrow If patient remains stable she may be considered for discharge home in the next 24 hours likely on home oxygen Outpatient follow-up with Dr. Daniel any office in 7-10 days I have personally seen and examined the patient, performed the documentation and the assessment and plan as written. Number of minutes spent on the visit: [10] Time with Patient: Less than 30
[2021-08-03] MEDS: REMDESIVIR 100 MG in SODIUM CHLORIDE 0.9% 250 ML IVPB SCH (16:36)
[2021-08-03] MEDS: OXYBUTYNIN 10 MG TAB.ER.24 PO SCH (20:59)
[2021-08-04] MEDS: LEVOTHYROXINE 25 MCG TAB PO SCH (05:56)
[2021-08-04 07:05] LABS: African American GFR (CKD) >90 (>60 ml/min/1.73 sqM); Anion Gap 8 mmol/L; Blood Urea Nitrogen 18 mg/dL (7-17); Calcium 8.8 mg/dL (8.4-10.2); Carbon Dioxide 33 mmol/L (22-30); Chloride 94 mmol/L (98-107); Glucose 108 mg/dL (74-99); Non-African American GFR(CKD) >90 (>60 ml/min/1.73 sqM); Potassium 4.9 mmol/L (3.5-5.1); Sodium 135 mmol/L (137-145)
[2021-08-04] MEDS: FUROSEMIDE 40 MG TAB PO SCH (08:49)
[2021-08-04] MEDS: ZINC SULFATE 220 MG CAP PO SCH (08:49)
[2021-08-04] MEDS: ASCORBIC ACID 500 MG TAB PO SCH (08:49)
[2021-08-04] MEDS: CHOLECALCIFEROL 125 MCG (5000 IU) TABLET PO SCH (08:49)
[2021-08-04] MEDS: dexAMETHasone 2 MG TAB PO SCH (08:49)
[2021-08-04] MEDS: SERTRALINE 50 MG TAB PO SCH (08:49)
[2021-08-04] MEDS: ENOXAPARIN 40 MG/0.4 ML SYRINGE SQ SCH (08:50)
[2021-08-04 10:17] VITALS: BP 142/71; PULSE 50; RESP 20; TEMP 98.5
[2021-08-04 10:48] LABS: Basophils # (A) 0.04 X 10*3/uL (0.00-0.10); Basophils % (A) 0.4 %; Eosinophils # (A) 0.07 X 10*3/uL (0.04-0.35); Eosinophils % (A) 0.6 %; HCT 49.4 % (37.2-46.3); HGB 15.3 g/dL (12.0-15.0); Immature Grans, Automated 0.9 %; Lymphocytes # (A) 2.18 X 10*3/uL (0.90-5.00); Lymphocytes % (A) 19.3 %; MCH 26.8 pg (27.0-32.0); MCV 86.5 fL (80.0-97.0); Monocytes # (A) 0.84 X 10*3/uL (0.20-1.00); Monocytes % (A) 7.4 %; NRBC Per 100 WBC 0 /100 WBCS (0.0-0.0); Neutrophils # (A) 8.09 X 10*3/uL (1.80-7.70); Neutrophils % (A) 71.4 %; Platelet Count 347 X 10*3/uL (140-440); RBC 5.71 X 10*6/uL (4.10-5.20); RDW 13.4 % (11.5-14.5); WBC 11.32 X 10*3/uL (4.50-10.00)
--- NOTE | 2021-08-04 13:52 | P.PN ---
Subjective Progress Note Date: 08/04/21 The patient is a 26-year-old female with a PMH of an unknown complex developmental delay, seizure disorder, scoliosis, and recently diagnosed von Willebrand's disease, who is brought into the emergency room by her mother for hypoxia and fever. The mother reports that she herself had tested positive for COVID several days ago and had been trying to maintain her distance from the patient. She reports however that the patient had developed a persistent cough 1-2 days ago, for which she took the patient was in urgent care earlier today where she was noted to be hypoxic to 88% on room air as well as febrile. They were subsequently directed to the emergency room. The mother also reports noticing the patient's lower extremity bilateral swelling, for which she routinely takes Lasix 40 mg daily over the past 6 months. She states however that despite compliance with the medication, the lower extremity swelling significantly worsened over the past 2 days. She also states finding out recently that the patient has one Willebrand's disease, which was stated as a reason for which the patient could not undergo dental surgery for her poor dentition. As per the mother, the patient's expressive and receptive language is limited and she that she is weary of healthcare worker. At the time of interview, the patient repeatedly said "I am fine" and refused to answer questions further. The mother stated that this typical behavior for her. No meaningful review of systems could thereby be obtained. Chest CTA in the emergency room was consistent with interstitial pneumonia. EKG reveals sinus tachycardia at 1 15 bpm with T-wave inversion in leads 3, aVF, and V3 to V4. Lower extremity venous Doppler was negative for DVT. Laboratory evaluation was remarkable for WBC count of 12.1, coronavirus PCR positive, and d-dimer 1.44. SpO2 in the emergency room was 85% on room air with T-max 100.6F. On 08/01/2021 patient seen in follow-up in the emergency room where she is awaiting a bed on medical surgical floor, patient is much more awake, interactive, she sit up on the edges of bed, breathing comfortably, she is on 2 L of oxygen pulse ox is 97%. No fevers overnight, patient has been started on a Remdesivir for COVID-19 infection. Today's labs are still pending including inflammatory markers, d- dimer, and pro-calcitonin level. Patient continues on Decadron 6 g daily, she is on Lovenox 40 mg daily, she is on multivitamins. No nausea or vomiting, no diarrhea, no abdominal pain. She is tolerating oral diet. Her mother is at the bedside. On 08/02/2021 patient seen in follow-up on medical surgical floor. She is awake and alert, in no acute distress, on 2 L of oxygen her pulse ox is 94%, patient has been ambulate into the bathroom with limited assistance, tolerates activity well however she does desaturate to 79% with exertion on room air. Low-grade fevers today with a temp of 99.3. Otherwise vital signs have been stable, her mom is at the bedside and has been staying at the bedside 10/09 to assist with care. She states the patient is starting to cough up some stuff. Patient continues on Remdesivir, Decadron, multivitamins, prophylactic anticoagulation, no nausea or vomiting, no diarrhea no abdominal pain, she is tolerating oral diet. Labs have been reviewed, white blood cell count is improving is down to 7.5, hemoglobin is 13.1, d-dimer is improving and is down to 0.73, her LDH was within normal limits at 468, and CRP is 7.3. Pro-calcitonin level was negative at 0.06 On 08/03/2021 patient seen in follow-up on medical surgical floor. Patient is resting comfortably in bed, in no acute distress, she's had no acute events overnight, she has been afebrile, breathing comfortably, denies any chest discomfort, patient has been ambulating in the room and to the bathroom, and she has been noted to be desaturating to 70% on room air with ambulation. She is on day 4 of Remdesivir treatment, she also continues on Decadron, multivitamins, and prophylactic anticoagulation, today's labs have been reviewed, her white blood cell count is 9.8, hemoglobin is 14, sodium is 137, potassium is 4.4, chloride is 94, CO2 39, BUN of 16 creatinine 0.51. CRP and LDH are improving, LDH is down to 254, and CRP is 5.9. The patient is seen today 08/04/2021 in follow-up on the regular medical floor. She is currently resting quite comfortably in bed. Awake and alert in no acute distress. Continues with good O2 saturations in the upper 90s on 2 L/m per nasal cannula. Afebrile. Urine culture revealed no growth. White count 11.3. Hemoglobin 15.3. Sodium 135. Potassium 4.9. BUN 18. Creatinine 0.45. Day #5 of Remdesivir. She remains on Decadron and vitamin supplements. Objective - Vital Signs Vital signs: Vital Signs Temp 98.5 F 08/04/21 10:15 Pulse 50 L 08/04/21 10:15 Resp 20 08/04/21 10:15 BP 142/71 08/04/21 10:15 Pulse Ox 97 08/04/21 10:15 FiO2 Intake & Output 08/03/21 08/04/21 08/04/21 18:59 06:59 18:59 Other: Voiding Method Toilet Toilet Toilet # Voids 4 2 - Exam GENERAL EXAM: Alert, very pleasant, 26-year-old female, on 2 L of oxygen pulse ox 97%, patient is able to provide simple yes or no answers, however she does have difficulty with verbal communication related to her history of deve lopmental delay, seizure disorder, comfortable in no apparent distress. HEAD: Normocephalic/atraumatic. EYES: Normal reaction of pupils, equal size. Conjunctiva pink, sclera white. NOSE: Clear with pink turbinates. THROAT: No erythema or exudates. NECK: No masses, no JVD, no thyroid enlargement, no adenopathy. CHEST: No chest wall deformity. Symmetrical expansion. LUNGS: Equal air entry with no crackles, wheeze, rhonchi or dullness. CVS: Regular rate and rhythm, normal S1 and S2, no gallops, no murmurs, no rubs ABDOMEN: Soft, nontender. No hepatosplenomegaly, normal bowel sounds, no guardi ng or rigidity. EXTREMITIES: No clubbing, no edema, no cyanosis, 2+ pulses and upper and lower extremities. MUSCULOSKELETAL: Muscle strength and tone normal. SPINE: No scoliosis or deformity SKIN: No rashes CENTRAL NERVOUS SYSTEM: No focal deficits, tone is normal in all 4 extremities. PSYCHIATRIC: Alert and oriented -3. Appropriate affect. Intact judgment and insight. - Labs CBC & Chem 7: 08/04/21 08:14 08/04/21 06:22 Labs: Abnormal Lab Results - Last 24 Hours (Table) 08/04/21 08/04/21 Range/Units 06:22 08:14 WBC 11.32 H (4.50-10.00) X 10*3/uL RBC 5.71 H (4.10-5.20) X 10*6/uL Hgb 15.3 H (12.0-15.0) g/dL Hct 49.4 H (37.2-46.3) % MCH 26.8 L (27.0-32.0) pg MCHC 31.0 L (32.0-37.0) g/dL MPV 9.0 L (9.5-12.2) fL Immature Gran # 0.10 H (0.00-0.04) X 10*3/uL Neutrophils # 8.09 H (1.80-7.70) X 10*3/uL Sodium 135 L (137-145) mmol/L Chloride 94 L (98-107) mmol/L Carbon Dioxide 33 H (22-30) mmol/L BUN 18 H (7-17) mg/dL Creatinine 0.45 L (0.52-1.04) mg/dL Glucose 108 H (74-99) mg/dL Assessment and Plan Assessment: 1 Acute hypoxic respiratory failure secondary to COVID-19 pneumonia, patient presented to the hospital on 07/31/2021 with 1 day history of symptoms with fever, weakness, hypoxia. Was started on Remdesivir on 07/31/2021. Patient has received 2 Moderna shots, however no Booster 2 History of developmental delay 3 History of cleft palate 4 History of severe scoliosis with multiple corrective surgeries on the spiny 5 Possible urinary tract infection 6 Elevated d-dimer without evidence of DVT on CTA chest 7 History of von Willebrand disease Plan: The patient was seen and evaluated Medication and labs reviewed Completed Remdesivir today Cleared for discharge from the pulmonary standpoint Evaluate for possible home oxygen Complete a ten-day course of Decadron Continue vitamin supplements I have personally seen and examined the patient, performed the documentation and the assessment and plan as written. Number of minutes spent on the visit: 10.
[2021-08-04 14:24] VITALS: BMI 48.8
--- NOTE | 2021-08-04 15:35 | P.DS ---
Providers Date of admission: 07/30/21 22:40 Expected date of discharge: 08/04/21 Attending physician: Magali Villavicencio MD Consults: 07/31/21 15:09 Consult Physician Routine Consulting Provider: Sandra Quevedo Consult Reason/Comments: Hypoxia and Covid Do you want consulting provider notified?: Yes Primary care physician: Stated None Hospital Course: Hospital Course: The patient is a 26-year-old female with a past medical history of complex developmental delay, seizure disorder, scoliosis, hypothyroidism, and recently diagnosed von Willebrand's disease. She presented to the emergency department overnight with her mother/caregiver for reports of hypoxia and fever accompanied by a persistent cough 2 days and worsening bilateral lower extremity edema. Patient was reportedly taken to urgent care center where she was diagnosed with Covid and found to be hypoxic with SpO2 of 88% on room air. Patient was then transferred to the emergency department. In the emergency department patient underwent full evaluation. Labs revealed leukocytosis with WBC count of 12.1. Elevated d-dimer of 1.44. Hyponatremia with sodium of 134, hypochloremia with chloride of 96, and elevated carbon dioxide of 31. Patient tested positive for coronavirus. Chest x-ray completed negative for acute cardiopulmonary process. CTA negative for PE, consistent with bilateral pneumonia. Bilateral lower extremity venous Doppler negative for DVTs. EKG showing sinus tachycardia at 115 bpm with T-wave inversion in leads III, aVF, V3, and V4. Patient's vital signs were stable, she did have a pulse rate of 104 with a low-grade temp of 100.6F. SpO2 did drop to 85% on room air requiring oxygen supplementation. Patient was then admitted under our services with consultation to pulmonology and was started on Remdesivir 07/31/21. Hospital course in detail the problem list Acute respiratory failure with hypoxia secondary to COVID 19 pneumonitis -Oxygenation to be administered and titrated as needed to maintain SPO2 equal to or greater than 90% -Telemetry monitoring. -Continue trending inflammatory markers -Encourage Incentive Spirometry 10-15x hourly while awake -Steroids: Decadron 6 mg daily -Continue vitamin C, Vitamin D, and Zinc. -Pulmonology following, appreciate further recommendations. -DVT prophylaxis with Lovenox. -Strict Droplet plus Contact precautions -Remdesivir, day 5 of 5 -Prescription for dexamethasone for 5 days after discharge -Patient was cleared for discharge per pulmonary service -Patient needs follow-up with primary care physician as directed -She qualified for home oxygen. Patient will be discharged home with home O2 Super Morbid obesity Chronic conditions: Complex developmental delay, seizure disorder, scoliosis, hypothyroidism, and recently diagnosed von Willebrand's disease -Patient to continue with daily home medication regimen. We will continue to provide safe and supportive treatment with assistance as needed. Physical examination discharge: General: No acute distress Derm: warm, dry Head: atraumatic, normocephalic, symmetric Eyes: no lid lag, anicteric sclera Mouth: no lip lesion, mucus membranes moist. Neck supple with full range of motion. Cardiovascular: S1S2 reg, no murmur, positive posterior tibial pulse bilaterally, lower extremity edema Lungs: Clear to auscultation bilaterally Abdominal: soft, nontender to palpation, no guarding, no appreciable organomegaly Ext: Growth restriction, short stature, patient moving all extremities independently. Did not assess gait. Psych/Neuro: Speech limited. Moving all extremities independently. Patient minimally verbal, reserved interaction secondary to mother's reports of patient's fear of healthcare workers. Patient Condition at Discharge: Stable Plan - Discharge Summary New Discharge Prescriptions: New Cholecalciferol [Vitamin D3 (125 Mcg = 5000 Iu)] 125 mcg PO DAILY 30 Days #30 tab dexAMETHasone ORAL [Hexadrol] 6 mg PO DAILY 5 Days #15 tab Continue Oxybutynin Chloride [Ditropan XL] 10 mg PO HS Furosemide [Lasix] 40 mg PO DAILY Sertraline [Zoloft] 50 mg PO DAILY Jolessa 1 tab PO DAILY Potassium Chloride [Klor-Con M20] 20 meq PO DAILY Levothyroxine Sodium [Synthroid] 12.5 mcg PO DAILY Discharge Medication List Oxybutynin Chloride [Ditropan XL] 10 mg PO HS 02/13/18 [History] Furosemide [Lasix] 40 mg PO DAILY 07/31/21 [History] Jolessa 1 tab PO DAILY 07/31/21 [History] Levothyroxine Sodium [Synthroid] 12.5 mcg PO DAILY 07/31/21 [History] Potassium Chloride [Klor-Con M20] 20 meq PO DAILY 07/31/21 [History] Sertraline [Zoloft] 50 mg PO DAILY 07/31/21 [History] Cholecalciferol [Vitamin D3 (125 Mcg = 5000 Iu)] 125 mcg PO DAILY 30 Days #30 tab 08/04/21 [Rx] dexAMETHasone ORAL [Hexadrol] 6 mg PO DAILY 5 Days #15 tab 08/04/21 [Rx] Follow up Appointment(s)/Referral(s): Len Daniel MD [STAFF PHYSICIAN] - 08/30/21 1:45 pm Niurka Gutierrez NPC [STAFF PHYSICIAN] - 08/10/21 2:00 pm Patient Instructions/Handouts: COVID-19 (Coronavirus Disease 2019) (DC) Activity/Diet/Wound Care/Special Instructions: [employer] [facility] will deliver Oxygen. Phone number Discharge Disposition: HOME SELF-CARE
== END 2021-08-04 15:26 | disposition home or self-care (01) | DRG 177 ==
LOC: EC 19:20 → 4SSUR 22:40
PROVIDERS: ADMIT Internal Medicine; ATTEND Internal Medicine
PROC: XW033E5 Introduction of Remdesivir Anti-infective into Peripheral Vein, Percutaneous Approach, New Technology Group 5 (ICD-10-PCS; principal; 2021-07-31)
DX: U07.1 COVID-19 (principal); J96.01 Acute respiratory failure with hypoxia; J12.82 Pneumonia due to coronavirus disease 2019; Z68.42 Body mass index [BMI] 45.0-49.9, adult; D68.0 Von Willebrand disease; E87.1 Hypo-osmolality and hyponatremia; E03.9 Hypothyroidism, unspecified; G40.909 Epilepsy, unspecified, not intractable, without status epilepticus; E66.01 Morbid (severe) obesity due to excess calories; R62.50 Unspecified lack of expected normal physiological development in childhood; M41.9 Scoliosis, unspecified; L30.9 Dermatitis, unspecified; E87.8 Other disorders of electrolyte and fluid balance, not elsewhere classified; Z79.890 Hormone replacement therapy; Z79.899 Other long term (current) drug therapy; Z87.730 Personal history of (corrected) cleft lip and palate; Z82.49 Family history of ischemic heart disease and other diseases of the circulatory system
CPT/HCPCS: 36410; 36415; 71045; 71046; 71275; 76937; 80048; 80053; 81001; 83605; 83615; 83735; 83880; 84145; 84484; 85025; 85027; 85379; 85610; 85730; 86140; 87086; 87502; 87635; 93005; 93970; 96365; 96366; 96372; 96375; 99285

== ENCOUNTER → 2021-11-28 | Outpatient (CLI) | payer OTHER ==
[2021-11-29 09:57] LABS: African American GFR (CKD) 138.6 (60.0-200.0); Anion Gap 12.5 mmol/L (10.00-18.00); BUN/Creat Ratio 14.43 Ratio (12.00-20.00); Blood Urea Nitrogen 10.1 mg/dL (9.0-27.0); Calcium 9.5 mg/dL (8.7-10.3); Carbon Dioxide 27.5 mmol/L (20.0-27.5); Non-African American GFR(CKD) 119.6 (60.0-200.0)
== END | disposition home or self-care (01) ==
LOC: LABWHC1 16:06
PROVIDERS: ATTEND Internal Medicine Cardiovascular Disease
DX: R06.02 Shortness of breath (principal)
CPT/HCPCS: 36415; 80048

== ENCOUNTER 2023-02-23 00:10 | Inpatient (IN) | payer OTHER ==
[2023-02-23] MEDS ORDERED: IBUPROFEN 600 MG TAB PO STA (00:30)
[2023-02-23] MEDS ORDERED: ACETAMINOPHEN TAB 325 MG TAB PO STA (00:30)
--- NOTE | 2023-02-23 00:36 | ED ---
Fever HPI - General Chief Complaint: Fever Stated Complaint: Vomiting, left foot swelling Time Seen by Provider: 02/23/23 00:35 Source: patient, family Mode of arrival: wheelchair Limitations: altered mental status, physical limitation - History of Present Illness Initial Comments: 28-year-old female with history of severe cognitive delay is brought in by her mother today with concerns for fever. Mother states that the patient has been not wanting to eat today and has vomited today. She tells me that the patient has history of severe eczema, today when she was going to put lotion on her legs and feet she noticed severe redness and swelling to the left foot ascending up the lower leg. She does not know how long it has been there. Mother states that it seemed that her heart was racing and she had a fever. Mother suspects that infection is due to patient's scratching of the lower leg due to her eczema. - Related Data Home Medications Medication Instructions Recorded Confirmed oxyBUTYnin chloride [Ditropan XL] 10 mg PO HS 02/13/18 07/31/21 Furosemide [Lasix] 40 mg PO DAILY 07/31/21 07/31/21 Jolessa 1 tab PO DAILY 07/31/21 07/31/21 Levothyroxine Sodium [Synthroid] 12.5 mcg PO DAILY 07/31/21 07/31/21 Potassium Chloride [Klor-Con M20] 20 meq PO DAILY 07/31/21 07/31/21 Sertraline [Zoloft] 50 mg PO DAILY 07/31/21 07/31/21 Previous Rx's Medication Instructions Recorded Cholecalciferol [Vitamin D3 (125 125 mcg PO DAILY 30 Days #30 tab 08/04/21 Mcg = 5000 Iu)] dexAMETHasone ORAL [Hexadrol] 6 mg PO DAILY 5 Days #15 tab 08/04/21 Allergies Allergy/AdvReac Type Severity Reaction Status Date / Time cephalexin [From Keflex] Allergy Rash/Hives Verified 02/23/23 00:22 Penicillins Allergy Rash/Hives Verified 02/23/23 00:22 sulfamethoxazole Allergy Rash/Hives Verified 02/23/23 00:22 [From Bactrim] trimethoprim [From Bactrim] Allergy Rash/Hives Verified 02/23/23 00:22 Review of Systems ROS Statement: Those systems with pertinent positive or pertinent negative responses have been documented in the HPI. ROS Other: All systems not noted in ROS Statement are negative. Past Medical History Past Medical History: Musculoskeletal Disorder Additional Past Medical History / Comment(s): developmentally delayed. cleft palate. Nystagmus. (L) pupil is larger than (R) pupil. Eczema History of Any Multi-Drug Resistant Organisms: None Reported Past Surgical History: Ear Surgery Past Psychological History: No Psychological Hx Reported Smoking Status: Never smoker Past Alcohol Use History: None Reported Past Drug Use History: None Reported - Past Family History Mother Family Medical History: Hypertension General Exam - General Exam Comments Initial Comments: Visual Physical Exam Vital signs reviewed General: lethargic. Head: atraumatic Eyes: PERRLA, EOMI ENT: Airway patent Chest: Nonlabored breathing Skin: No visual rash, normal skin tone Neuro: Alert and orientation at baseline Musculoskeletal: redness and swelling to the left foot Limitations: altered mental status, physical limitation General appearance: alert, in no apparent distress Head exam: Present: atraumatic, normocephalic Eye exam: Present: normal appearance Neck exam: Present: normal inspection Respiratory exam: Present: normal lung sounds bilaterally. Absent: respiratory distress, wheezes, rales, rhonchi, stridor Cardiovascular Exam: Present: normal rhythm, tachycardia, normal heart sounds. Absent: systolic murmur, diastolic murmur, rubs, gallop, clicks Left Lower Leg exam: Present: tenderness, swelling, erythema Ankle exam: Present: tenderness, swelling, erythema Foot/Toe exam: Present: tenderness, swelling, erythema Neurological exam: Present: alert (Baseline mental status according to mother) Psychiatric exam: Present: normal affect, normal mood Skin exam: Present: erythema (Erythema to the left foot and lower leg) Course Vital Signs 02/23/23 02/23/23 02/23/23 00:22 01:47 03:41 Temperature 103.0 F H 101.8 F H 98.1 F Pulse Rate 147 H 79 Respiratory 22 18 Rate Blood Pressure 100/63 82/52 O2 Sat by Pulse 98 98 Oximetry 02/23/23 04:11 Temperature Pulse Rate Respiratory Rate Blood Pressure 95/60 O2 Sat by Pulse Oximetry Medical Decision Making - Medical Decision Making Was pt. sent in by a medical professional or institution (, PA, [facility], urgent care, hospital, or alf...) When possible be specific @ -[No] Did you speak to anyone other than the patient for history (EMS, parent, family, police, friend...)? What history was obtained from this source @ -History obtained from the patient's mother Did you review nursing and triage notes (agree or disagree)? Why? @ -[I reviewed and agree with nursing and triage notes] Were old charts reviewed (outside hosp., previous admission, EMS record, old EKG, old radiological studies, urgent care reports/EKG's, alf records)? Report findings @ -[No old charts were reviewed] Differential Diagnosis (chest pain, altered mental status, abdominal pain women, abdominal pain men, vaginal bleeding, weakness, fever, dyspnea, syncope, headache, dizziness, GI bleed, back pain, seizure, CVA, palpatations, mental health, musculoskeletal)? @ -Differential includes cellulitis, abscess, ALLERGIC reaction, this is not an all inclusive list EKG interpreted by me (3pts min.). @ -[As above] X-rays interpreted by me (1pt min.). @ -X-ray reviewed which shows no subcutaneous air CT interpreted by me (1pt min.). @ -[None done] U/S interpreted by me (1pt. min.). @ -[None done] What testing was considered but not performed or refused? (CT, X-rays, U/S, labs)? Why? @ -[None] What meds were considered but not given or refused? Why? @ -[None] Did you discuss the management of the patient with other professionals (professionals i.e. , PA, [facility], lab, RT, psych nurse, social worker clinical, machine tack puller, teacher, chief medical officer, community case manager)? Give summary @ -I spoke with Dr. Patel who accepted admission Was smoking cessation discussed for >3mins.? @ -[No] Was critical care preformed (if so, how long)? @ -[No] Were there social determinants of health that impacted care today? How? (Homelessness, low income, unemployed, alcoholism, drug addiction, transportation, low edu. Level, literacy, decrease access to med. care, senior living, rehab)? @ -[No] Was there de-escalation of care discussed even if they declined (Discuss DNR or withdrawal of care, Hospice)? DNR status @ -[No] What co-morbidities impacted this encounter? (DM, HTN, Smoking, COPD, CAD, Cancer, CVA, ARF, Chemo, Hep., AIDS, mental health diagnosis, sleep apnea, mo rbid obesity)? @ -[None] Was patient admitted / discharged? Hospital course, mention meds given and route, prescriptions, significant lab abnormalities, going to OR and other pertinent info. @ -20-year-old female with severe cognitive delay presenting with chief complaint of fever. Patient has a large amount of redness and swelling to the left foot which is ascending up the leg. Mother states the patient has history of severe eczema, infection likely occurred due to the patient's itching. WBC 30.2. Sodium 134, potassium 5.6, repeat BMP is ordered. Glucose 219. Mild transaminitis. X-rays obtained which shows no evidence of subcutaneous air. Patient was started on Motrin and Tylenol for fever, IV fluid bolus followed by maintenance rate of 130 mL per hour, as well as vancomycin and Levaquin given the patient's medication ALLERGIES. Antibiotics were initiated after blood cultures were drawn. ESR and CRP are added on. Patient will be admitted, mother is agreeable to this plan. I discussed this case with my attending Dr. Doty Undiagnosed new problem with uncertain prognosis? @ -[No] Drug Therapy requiring intensive monitoring for toxicity (Heparin, Nitro, In sulin, Cardizem)? @ -[No] Were any procedures done? @ -[No] Diagnosis/symptom? @ -Cellulitis, sepsis Acute, or Chronic, or Acute on Chronic? @ -Acute Uncomplicated (without systemic symptoms) or Complicated (systemic symptoms)? @ -Complicated Side effects of treatment? @ -[No] Exacerbation, Progression, or Severe Exacerbation? @ -[No] Poses a threat to life or bodily function? How? (Chest pain, [place], [place], pneumonia, PE, COPD, DKA, ARF, appy, cholecystitis, CVA, Diverticulitis, Homicidal, Suicidal, threat to staff... and all critical care pts) @ -Yes, sepsis can lead to endorgan failure and - Lab Data Result diagrams: 02/23/23 00:36 02/23/23 00:36 Lab Results 02/23/23 02/23/23 02/23/23 Range/Units 00:36 00:36 00:36 WBC 30.2 H (3.8-10.6) k/uL RBC 5.39 (3.80-5.40) m/uL Hgb 15.0 (11.4-16.0) gm/dL Hct 44.6 (34.0-46.0) % MCV 82.7 (80.0-100.0) fL MCH 27.7 (25.0-35.0) pg MCHC 33.6 (31.0-37.0) g/dL RDW 12.2 (11.5-15.5) % Plt Count 370 (150-450) k/uL MPV 8.0 Neutrophils % (Manual) 72 % Band Neuts % (Manual) 23 % Lymphocytes % (Manual) 3 % Monocytes % (Manual) 2 % Neutrophils # (Manual) 28.60 H (1.3-7.7) k/uL Lymphocytes # (Manual) 0.91 L (1.0-4.8) k/uL Monocytes # (Manual) 0.60 (0-1.0) k/uL Nucleated RBCs 0 (0-0) /100 WBC Manual Slide Review Performed Toxic Granulation Present Sodium 134 L (137-145) mmol/L Potassium 5.6 H (3.5-5.1) mmol/L Chloride 95 L (98-107) mmol/L Carbon Dioxide 23 (22-30) mmol/L Anion Gap 16 mmol/L BUN 16 (7-17) mg/dL Creatinine 0.54 (0.52-1.04) mg/dL Est GFR (CKD-EPI)AfAm >90 (>60 ml/min/1.73 sqM) Est GFR (CKD-EPI)NonAf >90 (>60 ml/min/1.73 sqM) Glucose 219 H (74-99) mg/dL Plasma Lactic Acid Jesus (0.7-2.0) mmol/L Calcium 9.6 (8.4-10.2) mg/dL Total Bilirubin 1.3 (0.2-1.3) mg/dL AST 79 H (14-36) U/L ALT 85 H (4-34) U/L Alkaline Phosphatase 180 H (38-126) U/L Total Protein 8.1 (6.3-8.2) g/dL Albumin 4.2 (3.5-5.0) g/dL Influenza Type A (PCR) Not Detected (Not Detectd) Influenza Type B (PCR) Not Detected (Not Detectd) RSV (PCR) Not Detected (Not Detectd) SARS-CoV-2 (PCR) Not Detected (Not Detectd) 02/23/23 Range/Units 00:36 WBC (3.8-10.6) k/uL RBC (3.80-5.40) m/uL Hgb (11.4-16.0) gm/dL Hct (34.0-46.0) % MCV (80.0-100.0) fL MCH (25.0-35.0) pg MCHC (31.0-37.0) g/dL RDW (11.5-15.5) % Plt Count (150-450) k/uL MPV Neutrophils % (Manual) % Band Neuts % (Manual) % Lymphocytes % (Manual) % Monocytes % (Manual) % Neutrophils # (Manual) (1.3-7.7) k/uL Lymphocytes # (Manual) (1.0-4.8) k/uL Monocytes # (Manual) (0-1.0) k/uL Nucleated RBCs (0-0) /100 WBC Manual Slide Review Toxic Granulation Sodium (137-145) mmol/L Potassium (3.5-5.1) mmol/L Chloride (98-107) mmol/L Carbon Dioxide (22-30) mmol/L Anion Gap mmol/L BUN (7-17) mg/dL Creatinine (0.52-1.04) mg/dL Est GFR (CKD-EPI)AfAm (>60 ml/min/1.73 sqM) Est GFR (CKD-EPI)NonAf (>60 ml/min/1.73 sqM) Glucose (74-99) mg/dL Plasma Lactic Acid Jesus 1.8 (0.7-2.0) mmol/L Calcium (8.4-10.2) mg/dL Total Bilirubin (0.2-1.3) mg/dL AST (14-36) U/L ALT (4-34) U/L Alkaline Phosphatase (38-126) U/L Total Protein (6.3-8.2) g/dL Albumin (3.5-5.0) g/dL Influenza Type A (PCR) (Not Detectd) Influenza Type B (PCR) (Not Detectd) RSV (PCR) (Not Detectd) SARS-CoV-2 (PCR) (Not Detectd) Disposition Clinical Impression: Cellulitis, Sepsis Disposition: ADMITTED IP TO THIS HOSP Condition: Serious Time of Disposition: 03:26
[2023-02-23 01:25] LABS: HCT 44.6 % (34.0-46.0); MCH 27.7 pg (25.0-35.0); MCHC 33.6 g/dL (31.0-37.0); MCV 82.7 fL (80.0-100.0); Platelet Count 370 k/uL (150-450); RBC 5.39 m/uL (3.80-5.40); RDW 12.2 % (11.5-15.5); WBC 30.2 k/uL (3.8-10.6)
[2023-02-23 01:39] LABS: Band Neutrophils % 23 %; Lymphocytes # (M) 0.91 k/uL (1.0-4.8); Neutrophils % (M) 72 %; Nucleated Red Blood Cells 0 /100 WBC (0-0); Total Cells Counted 200
[2023-02-23 01:40] LABS: Toxic Granulation Present
[2023-02-23] MEDS ORDERED: VANCOMYCIN IV PER PHARMACY 1 EACH MISC MISCELLANE PRN (01:52)
[2023-02-23] MEDS ORDERED: SODIUM CHLORIDE 0.9% 1,000 ML IV ONE (02:01)
[2023-02-23 02:16] LABS: ALT 85 U/L (4-34); African American GFR (CKD) >90 (>60 ml/min/1.73 sqM); Anion Gap 16 mmol/L; Blood Urea Nitrogen 16 mg/dL (7-17); Calcium 9.6 mg/dL (8.4-10.2); Carbon Dioxide 23 mmol/L (22-30); Chloride 95 mmol/L (98-107); Glucose 219 mg/dL (74-99); Non-African American GFR(CKD) >90 (>60 ml/min/1.73 sqM); Sodium 134 mmol/L (137-145)
[2023-02-23] MEDS: SODIUM CHLORIDE 0.9% 1,000 ML IV SCH ×3 (02:23→18:38)
[2023-02-23 02:25] LABS: AST 79 U/L (14-36); Albumin 4.2 g/dL (3.5-5.0); Alkaline Phosphatase 180 U/L (38-126); Potassium 5.6 mmol/L (3.5-5.1); Total Bilirubin 1.3 mg/dL (0.2-1.3); Total Protein 8.1 g/dL (6.3-8.2)
[2023-02-23] MEDS ORDERED: VANCOMYCIN 1,000 MG in SODIUM CHLORIDE 0.9% 250 ML IVPB ONE ×2 (03:00→15:00)
[2023-02-23] MEDS ORDERED: MORPHINE SULFATE 4 MG/ML SYRINGE IVP PRN (03:00)
[2023-02-23] MEDS ORDERED: LEVOFLOXACIN 500MG-D5W PMX 500 MG in DEXTROSE/WATER 1 100ML.BAG IVPB STA (03:17)
[2023-02-23] MEDS ORDERED: NALOXONE 0.4 MG/ML 1 ML VIAL IV PRN ×2 (03:23→03:46)
[2023-02-23] MEDS ORDERED: IBUPROFEN 400 MG TAB PO PRN (03:23)
[2023-02-23] MEDS ORDERED: SODIUM CHLORIDE 0.9% 2,000 ML IV ONE (03:52)
--- NOTE | 2023-02-23 04:02 | P.HPIM ---
History of Present Illness H&P Date: 02/23/23 Chief Complaint: fever 28-year-old female with history of developmental delay, multiple musculoskeletal abnormalities, eczema, hypothyroidism, depression presented to emergency department because of worsening redness over the feet and legs, left more than right. She has associated fevers and chills. In addition to that she was having nausea, vomiting and soft stools. Mother stated that she was itching her feet due to the eczema before this started. States the legs are very painful. She has not been able to walk and was eating very little. Review of Systems complete review of system performed pertinent positives per HPI otherwise negati ve. Past Medical History Past Medical History: Musculoskeletal Disorder Additional Past Medical History / Comment(s): developmentally delayed. cleft palate. Nystagmus. (L) pupil is larger than (R) pupil. Eczema History of Any Multi-Drug Resistant Organisms: None Reported Past Surgical History: Ear Surgery Past Psychological History: No Psychological Hx Reported Smoking Status: Never smoker Past Alcohol Use History: None Reported Past Drug Use History: None Reported - Past Family History Mother Family Medical History: Hypertension Medications and Allergies Home Medications Medication Instructions Recorded Confirmed Type oxyBUTYnin chloride [Ditropan XL] 10 mg PO HS 02/13/18 07/31/21 History Furosemide [Lasix] 40 mg PO DAILY 07/31/21 07/31/21 History Jolessa 1 tab PO DAILY 07/31/21 07/31/21 History Levothyroxine Sodium [Synthroid] 12.5 mcg PO DAILY 07/31/21 07/31/21 History Potassium Chloride [Klor-Con M20] 20 meq PO DAILY 07/31/21 07/31/21 History Sertraline [Zoloft] 50 mg PO DAILY 07/31/21 07/31/21 History Cholecalciferol [Vitamin D3 (125 125 mcg PO DAILY 30 Days #30 tab 08/04/21 Rx Mcg = 5000 Iu)] dexAMETHasone ORAL [Hexadrol] 6 mg PO DAILY 5 Days #15 tab 08/04/21 Rx Allergies Allergy/AdvReac Type Severity Reaction Status Date / Time cephalexin [From Keflex] Allergy Rash/Hives Verified 02/23/23 00:22 Penicillins Allergy Rash/Hives Verified 02/23/23 00:22 sulfamethoxazole Allergy Rash/Hives Verified 02/23/23 00:22 [From Bactrim] trimethoprim [From Bactrim] Allergy Rash/Hives Verified 02/23/23 00:22 Physical Exam Vitals: Vital Signs Temp Pulse Resp BP Pulse Ox 02/23/23 03:41 98.1 F 79 18 82/52 98 02/23/23 01:47 101.8 F H 02/23/23 00:22 103.0 F H 147 H 22 100/63 98 Intake and Output 02/22/23 02/22/23 02/23/23 14:59 22:59 06:59 Intake Total 1999 Balance 1999 Intake: IV 1999 Invasive Line 1 1999 Other: Weight 68.039 kg Constitutional: fidgety, non verbal. Eyes:Anicteric sclerae, moist conjunctiva, no lid-lag, PERRLA, ENMT: Oropharynx clear, no erythema, exudates Neck: Supple, FROM, no masses, or JVD, No carotid bruits, No thyromegaly Lungs: Clear to auscultation, Clear to percussion, Normal respiratory effort, no accessory muscle use Cardiovascular: tachycardic, regular, No murmurs, gallops, or rubs, No peripheral edema Abdominal: Soft, Nontender, no guarding, rebound or rigidity, Normoactive bowel sounds, No hepatomegaly, No splenomegaly, No palpable mass Skin: bilateral feet and legs redness, tender to touch, L>R, tone, texture, turgor, no induration, No subcutaneous nodules, No rash, lesions, No ulcers Extremities: Multiple skeletal deformities. Pedal pulses intact and symmetrical, Radial pulses intact and symmetrical, No calf tenderness Neuro: Not following commands not focal. Results CBC & Chem 7: 02/23/23 00:36 02/23/23 00:36 Labs: Abnormal Lab Results - Last 24 Hours (Table) 02/23/23 02/23/23 Range/Units 00:36 00:36 WBC 30.2 H (3.8-10.6) k/uL Neutrophils # (Manual) 28.60 H (1.3-7.7) k/uL Lymphocytes # (Manual) 0.91 L (1.0-4.8) k/uL Sodium 134 L (137-145) mmol/L Potassium 5.6 H (3.5-5.1) mmol/L Chloride 95 L (98-107) mmol/L Glucose 219 H (74-99) mg/dL AST 79 H (14-36) U/L ALT 85 H (4-34) U/L Alkaline Phosphatase 180 H (38-126) U/L Assessment and Plan Plan: Sepsis Legs cellulitis L>R Has multiple meds allergies, will start levaquin for gram negative coverage and vancomycin for gram positive coverage IV fluids Tylenol for fevers Follow lactic acid and WBC Check blood cx Hypothyroidism Depression Developmental delay Stable resume meds Admit to inpatient expected length of stay more than 2 midnights
[2023-02-23 04:13] LABS: African American GFR (CKD) >90 (>60 ml/min/1.73 sqM); Anion Gap 11 mmol/L; Blood Urea Nitrogen 17 mg/dL (7-17); Calcium 8.9 mg/dL (8.4-10.2); Carbon Dioxide 25 mmol/L (22-30); Chloride 99 mmol/L (98-107); Glucose 160 mg/dL (74-99); Non-African American GFR(CKD) >90 (>60 ml/min/1.73 sqM); Potassium 4.3 mmol/L (3.5-5.1); Sodium 135 mmol/L (137-145)
[2023-02-23] MEDS: KETOROLAC 15 MG/ML 1 ML VIAL IVP SCH ×3 (05:40→16:41)
[2023-02-23 05:49] LABS: C Reactive Protein 33.4 mg/dL (<1.0)
--- NOTE | 2023-02-23 06:22 | XR ---
EXAM: XR Left Foot Complete, 3 or More Views CLINICAL HISTORY: ITS.REASON XR Reason: swelling, tenderness TECHNIQUE: Frontal, lateral and oblique views of the left foot. COMPARISON: No relevant prior studies available. FINDINGS: Bones/joints: Pes planus. No acute fracture. Soft tissues: Diffuse soft tissue edema. No soft tissue gas. IMPRESSION: Diffuse soft tissue edema.
[2023-02-23] MEDS: VANCOMYCIN 1,250 MG in SODIUM CHLORIDE 0.9% 250 ML IVPB SCH ×2 (11:23→21:31)
[2023-02-23] MEDS: OXYBUTYNIN 10 MG TAB.ER.24 PO SCH (21:31)
[2023-02-23] MEDS: ACETAMINOPHEN TAB 325 MG TAB PO PRN (21:34)
[2023-02-24] MEDS: KETOROLAC 15 MG/ML 1 ML VIAL IVP SCH ×5 (00:14→23:55)
[2023-02-24] MEDS: SODIUM CHLORIDE 0.9% 1,000 ML IV SCH ×2 (01:10→08:46)
[2023-02-24] MEDS: VANCOMYCIN 1,250 MG in SODIUM CHLORIDE 0.9% 250 ML IVPB SCH ×3 (02:45→21:24)
[2023-02-24 07:00] LABS: African American GFR (CKD) >90 (>60 ml/min/1.73 sqM); Anion Gap 8 mmol/L; Blood Urea Nitrogen 14 mg/dL (7-17); Calcium 8.6 mg/dL (8.4-10.2); Carbon Dioxide 19 mmol/L (22-30); Chloride 112 mmol/L (98-107); Glucose 102 mg/dL (74-99); Non-African American GFR(CKD) >90 (>60 ml/min/1.73 sqM); Sodium 139 mmol/L (137-145)
--- NOTE | 2023-02-24 07:38 | P.CONS ---
History of Present Illness - Reason for Consult Consult date: 02/23/23 Cellulitis Requesting physician: Mayur Graves - Chief Complaint Increasing swelling redness left leg x 2 days - History of Present Illness Patient is a 28-year-old female with a past medical history significant for developmental delay, patient was brought into the hospital by her mother concerning for a fever, apparently the patient did not want to eat and vomited the day of presentation to the hospital patient also noticed to having increasing swelling and redness to the left foot that has been spreading to the left lower leg concerning for cellulitis for the patient was brought into the hospital on arrival to the ER patient did have a fever of 103 F patient was tachycardic mildly hypertensive but not hypoxic patient did have a white count of 30,000 with a left shift creatinine 0.54 influenza RSV and COVID testing was negative patient did have a foot x-ray diffuse soft tissue edema patient was started on vancomycin because of her multiple antibiotic allergies infectious disease was consulted for further management of antibiotic therapy, patient is currently normal but most information has been provided by the mother at the bedside noticed to having a swelling and redness of the left foot the day before the patient was has been brought to hospital and noticed to have a skin breakdown to the left big toe dorsal aspect, patient did have mostly diffuse swelling redness which is warm to touch did not have any blister or any drainage Review of Systems Positive points has been mentioned in HPI complete review could not be obtained because of his underlying mental status Past Medical History Past Medical History: Musculoskeletal Disorder Additional Past Medical History / Comment(s): developmentally delayed. cleft palate. Nystagmus. (L) pupil is larger than (R) pupil. Eczema History of Any Multi-Drug Resistant Organisms: None Reported Past Surgical History: Ear Surgery Past Psychological History: No Psychological Hx Reported Smoking Status: Never smoker Past Alcohol Use History: None Reported Past Drug Use History: None Reported - Past Family History Mother Family Medical History: Hypertension Medications and Allergies Home Medications Medication Instructions Recorded Confirmed Type Furosemide [Lasix] 40 mg PO DAILY@149907/31/21 02/23/23 History Levothyroxine Sodium [Synthroid] 25 mcg PO DAILY@149907/31/21 02/23/23 History Potassium Chloride [Klor-Con M20] 20 meq PO DAILY@149907/31/21 02/23/23 History Ferrous Sulfate [Iron (65 MG 325 mg PO HS@2200 02/23/23 02/23/23 History Elemental)] Medroxyprogesterone Acetate 150 mg IM Q84D 02/23/23 02/23/23 History [Depo-Provera] Multivitamins, Thera [Multivitamin 1 tab PO HS@2200 02/23/23 02/23/23 History (formulary)] Sertraline [Zoloft] 100 mg PO DAILY@1500 02/23/23 02/23/23 History Acetaminophen Tab [Tylenol] 650 mg PO Q6HR PRN tab 03/07/23 Rx Allergies Allergy/AdvReac Type Severity Reaction Status Date / Time cephalexin [From Keflex] Allergy Rash/Hives Verified 02/23/23 12:10 Penicillins Allergy Rash/Hives Verified 02/23/23 12:16 sulfamethoxazole Allergy Rash/Hives Verified 02/23/23 12:10 [From Bactrim] trimethoprim [From Bactrim] Allergy Rash/Hives Verified 02/23/23 12:10 Physical Exam Vitals: Vital Signs Temp Pulse Resp BP Pulse Ox 02/23/23 06:45 96.9 F L 99 123/61 02/23/23 04:11 95/60 02/23/23 03:41 98.1 F 79 18 82/52 98 02/23/23 01:47 101.8 F H 02/23/23 00:22 103.0 F H 147 H 22 100/63 98 Intake and Output 02/22/23 02/23/23 02/23/23 22:59 06:59 14:59 Intake Total 1999 Balance 1999 Intake: IV 1999 Invasive Line 1 1999 Other: Weight 68.039 kg GENERAL DESCRIPTION: Middle-aged female lying in bed, no distress. No tachypnea or accessory muscle of respiration use. HEENT: Shows Pallor , no scleral icterus. Oral mucous membrane is dry. NECK: Trachea central, no thyromegaly. LUNGS: Unlabored breathing. Clear to auscultation anteriorly. No wheeze or crackle. HEART: S1, S2, regular rate and rhythm. No loud murmur ABDOMEN: Soft, no tenderness , EXTREMITIES: Left lower extremity diffuse swelling and redness which is warm and tender to touch SKIN: No rash, no masses palpable. NEUROLOGICAL: The patient is awake, alert, nonverbal orientation could not determine Results CBC & Chem 7: 03/07/23 06:40 03/07/23 06:40 Labs: Abnormal Lab Results - Last 24 Hours (Table) 02/23/23 02/23/23 02/23/23 Range/Units 00:36 00:36 03:30 WBC 30.2 H (3.8-10.6) k/uL Neutrophils # (Manual) 28.60 H (1.3-7.7) k/uL Lymphocytes # (Manual) 0.91 L (1.0-4.8) k/uL Sodium 134 L 135 L (137-145) mmol/L Potassium 5.6 H (3.5-5.1) mmol/L Chloride 95 L (98-107) mmol/L Glucose 219 H 160 H (74-99) mg/dL AST 79 H (14-36) U/L ALT 85 H (4-34) U/L Alkaline Phosphatase 180 H (38-126) U/L C-Reactive Protein 33.4 H (<1.0) mg/dL Assessment and Plan (1) Allergy to multiple antibiotics Current Visit: Yes Status: Acute Code(s): Z88.1 - ALLERGY STATUS TO OTHER ANTIBIOTIC AGENTS SNOMED Code(s): 489027498 (2) Left leg cellulitis Current Visit: Yes Status: Acute Code(s): L03.116 - CELLULITIS OF LEFT LOWER LIMB SNOMED Code(s): 18436348155145649 (3) Sepsis Current Visit: Yes Status: Acute Code(s): A41.9 - SEPSIS, UNSPECIFIED ORGANISM SNOMED Code(s): 56204340 Plan: 1patient was in the hospital with sepsis in this patient who did have a fever tachycardia elevated white count source is acute left lower extremity cellulitis with rapid progression of the cellulitis more likely streptococcal disease 2patient with multiple antibiotic ALLERGIES that would limit the number of antibiotic safe to use 3marked the area of the redness 4vancomycin pharmacy to dose target trough of 15 while watching kidney function and Vanco trough closely We will follow on clinical condition and cultures to further adjust medication if needed Thank you for this consultation we will follow the patient along with you Dictation was produced using [email or web address] dictation software. please excuse any grammatical, word or spelling errors. Time with Patient: Greater than 30
[2023-02-24] MEDS: ACETAMINOPHEN TAB 325 MG TAB PO PRN (08:46)
[2023-02-24] MEDS ORDERED: VANCOMYCIN TROUGH DUE 1 EACH MISC MISCELLANE ONE (10:00)
[2023-02-24 10:05] LABS: HCT 34.9 % (37.2-46.3); MCH 27.2 pg (27.0-32.0); MCHC 31.5 g/dL (32.0-37.0); MCV 86.2 FL (80.0-97.0); Mean Platelet Volume 9.6 FL (9.5-12.2); NRBC Per 100 WBC 0.02 X 10*3/uL (0.00-0.01); Platelet Count 273 X 10*3/uL (140-440); RBC 4.05 X 10*6/uL (4.10-5.20); RDW 13.2 % (11.5-14.5); WBC 29.18 X 10*3/uL (4.50-10.00)
[2023-02-24 10:33] LABS: Basophils # (A) 0.16 X 10*3/uL (0.00-0.10); Basophils % (A) 0.5 %; Eosinophils # (A) 0.25 X 10*3/uL (0.04-0.35); Eosinophils % (A) 0.9 %; Lymphocytes # (A) 1.32 X 10*3/uL (0.90-5.00); Lymphocytes % (A) 4.5 %; Monocytes # (A) 1.26 X 10*3/uL (0.20-1.00); Monocytes % (A) 4.3 %; Neutrophils # (A) 25.45 X 10*3/uL (1.80-7.70); Neutrophils % (A) 87.3 %; RBC Morphology Normal (Normal)
[2023-02-24 11:03] LABS: African American GFR (CKD) >90 (>60 ml/min/1.73 sqM); Non-African American GFR(CKD) >90 (>60 ml/min/1.73 sqM)
--- NOTE | 2023-02-24 13:10 | XR ---
EXAMINATION TYPE: XR chest 1V portable DATE OF EXAM: 02/24/2023 Comparison: 08/01/2021 Clinical History: 28-year-old female decreased SPO2 Findings: Scoliotic thoracolumbar spinal fusion hardware with Dimitrios rods. Levoconvex scoliosis. Heart appe ars mildly enlarged. Interstitial densities in the lungs. Limited by large patient body habitus. Impression: Limited by scoliosis, large patient body habitus, and marked hypoventilatory changes. There is cardio megaly and possible mild interstitial opacities; correlate to exclude pulmonary vascular congestion o r atypical pneumonias.
[2023-02-24] MEDS ORDERED: FUROSEMIDE 10 MG/ML 4 ML VIAL IV STA (13:45)
--- NOTE | 2023-02-24 13:59 | P.PN ---
Subjective Progress Note Date: 02/24/23 Hospital Course: 28-year-old female with history of developmental delay, multiple musculoskeletal abnormalities, eczema, hypothyroidism, depression presented to emergency department because of worsening redness over the feet and legs, left more than right. Patient was febrile and tachycardic. WBC 13.2, creatinine 0.54. X-rays concerning for diffuse soft tissue edema. ID consulted. Patient started on IV vancomycin. Subjective: Seen and examined at bedside. No acute events overnight. Continues to have some respiratory distress Pertinent positives and negatives as discussed above, a complete review of systems was performed and all other systems are negative. Vitals Signs Reviewed. General: nontoxic, mild distress, appears at stated age, morbidly obese Derm: warm, dry, erythematous and edematous left foot up to midshin Head: atraumatic, normocephalic, symmetric Eyes: EOMI, no lid lag, anicteric sclera Mouth: no lip lesion, mucus membranes moist Cardiovascular: S1S2 reg, tachycardic, no murmur Lungs: Bibasilar rales , no accessory muscle use Abdominal: soft, nontender to palpation, no guarding, no appreciable organomegaly Ext: Lower extremity contractures Neuro: CN II-XI grossly intact, no focal neuro deficits Psych: Awake Data Reviewed Today: Pertinent Labs: WBC 29.1, hemoglobin 11, creatinine 0.67 Imaging: Chest x-ray inability interpreted, patient has significant scoliosis, hypoventilatory state, bibasilar interstitial opacities Assessment and Plan: Patient is critically ill, prognosis guarded. Active: Sepsis secondary to lower extremity cellulitis Acute hypoxic respiratory failure -Blood cultures pending -Continue IV vancomycin, monitor renal function for renal toxicity -ID following -Patient on Lasix at home -Echocardiogram ordered -Given one-time dose of IV Lasix, monitor electrolytes Chronic: Hypothyroidism Depression Developmental delay DVT ppx: heparin sq Code status: FC Anticipated discharge place: pending clinical course Anticipated discharge time: pending clinical course Objective - Vital Signs Vital signs: Vital Signs Temp 99.2 F 02/24/23 06:49 Pulse 107 H 02/24/23 06:49 Resp 20 02/24/23 08:10 BP 102/68 02/24/23 06:49 Pulse Ox 91 L 02/24/23 06:49 FiO2 Intake & Output 02/23/23 02/24/23 02/24/23 18:59 06:59 18:59 Intake Total 2019 Balance 2019 Weight 68.039 kg Intake: Intake, IV Titration 1540 Amount Sodium Chloride 0.9% 1, 1040 000 ml @ 130 mls/hr IV . Q7H42M [facility] Rx#:[id number] Vancomycin 1,250 mg In 500 Sodium Chloride 0.9% 250 ml @ 125 mls/hr IVPB Q8H [facility] Rx#:[id number] Oral 480 Other: Voiding Method Toilet Toilet # Bowel Movements 0 - Labs CBC & Chem 7: 02/24/23 06:12 02/24/23 10:31 Labs: Abnormal Lab Results - Last 24 Hours (Table) 02/24/23 02/24/23 Range/Units 06:12 06:12 WBC 29.18 H (4.50-10.00) X 10*3/uL RBC 4.05 L (4.10-5.20) X 10*6/uL Hgb 11.0 L (12.0-15.0) g/dL Hct 34.9 L (37.2-46.3) % MCHC 31.5 L (32.0-37.0) g/dL Immature Gran # 0.74 H (0.00-0.04) X 10*3/uL Neutrophils # 25.45 H (1.80-7.70) X 10*3/uL Monocytes # 1.26 H (0.20-1.00) X 10*3/uL Basophils # 0.16 H (0.00-0.10) X 10*3/uL NRBC/100 WBC Diff 0.02 H (0.00-0.01) X 10*3/uL Chloride 112 H (98-107) mmol/L Carbon Dioxide 19 L (22-30) mmol/L Glucose 102 H (74-99) mg/dL Microbiology - Last 24 Hours (Table) 02/23/23 02:00 Blood Culture - Preliminary Blood 02/23/23 02:15 Blood Culture - Preliminary Blood
--- NOTE | 2023-02-24 16:32 | US ---
EXAMINATION TYPE: US venous doppler duplex LE BI DATE OF EXAM: 02/24/2023 3:35 PM COMPARISON: NONE CLINICAL INDICATION: Female, 28 years old with history of edema; Cellulitis left lower leg SIDE PERFORMED: Bilateral TECHNIQUE: The lower extremity deep venous system is examined utilizing real time linear array sonog tabby with graded compression, doppler sonography and color-flow sonography. VESSELS IMAGED: Common Femoral Vein Deep Femoral Vein Greater Saphenous Vein * Femoral Vein Popliteal Vein Small Saphenous Vein * Proximal Calf Veins (* superficial vessels) Right Leg: Appears negative for DVT Left Leg: Appears negative for DVT Belt Repairer notes: Patient is a mentally challenged individual and was uncooperative throughout the e xam causing a suboptimal study. IMPRESSION: Exam limitations as above. No visualized DVT within the bilateral lower extremities image d down to the upper calves.
[2023-02-24] MEDS: LEVOTHYROXINE 25 MCG TAB PO SCH (16:56)
[2023-02-24] MEDS: SERTRALINE 100 MG TAB PO SCH (16:56)
[2023-02-24] MEDS: HEPARIN SODIUM,PORCINE 5,000 UNIT/ML 1 ML VIAL SQ SCH ×2 (16:56→23:54)
[2023-02-24] MEDS: OXYBUTYNIN 10 MG TAB.ER.24 PO SCH (21:22)
[2023-02-25] MEDS: KETOROLAC 15 MG/ML 1 ML VIAL IVP SCH ×3 (06:07→17:49)
[2023-02-25 08:49] LABS: African American GFR (CKD) >90 (>60 ml/min/1.73 sqM); Anion Gap 10 mmol/L; Blood Urea Nitrogen 12 mg/dL (7-17); Calcium 9.2 mg/dL (8.4-10.2); Carbon Dioxide 24 mmol/L (22-30); Chloride 105 mmol/L (98-107); Glucose 106 mg/dL (74-99); Non-African American GFR(CKD) 83 (>60 ml/min/1.73 sqM); Potassium 3.9 mmol/L (3.5-5.1); Sodium 139 mmol/L (137-145)
[2023-02-25] MEDS: HEPARIN SODIUM,PORCINE 5,000 UNIT/ML 1 ML VIAL SQ SCH ×2 (08:59→16:05)
[2023-02-25] MEDS: VANCOMYCIN 1,250 MG in SODIUM CHLORIDE 0.9% 250 ML IVPB SCH ×2 (08:59→21:26)
--- NOTE | 2023-02-25 12:33 | CA ---
Transthoracic Echo Report Name: Nai Whitley Age: 28 Gender: F : 1995 Exam Date: 02/25/2023 08:07 Exam Location: [facility] Ht (in): 58 Wt (lb): 150 Ordering Physician: Walter Romero MD Attending/Referring Phys: Health Care Manager Kandy Ortiz RDCS Procedure CPT: Indications: sob Cardiac Hx: Technical Quality: Technically difficult study Contrast 1: Definity Total Dose (mL): 2 Contrast 2: Total Dose (mL): MEASUREMENTS (Male / Female) Normal Values 2D ECHO LV Diastolic Diameter PLAX 3.0 cm 4.2 - 5.9 / 3.9 - 5.3 cm LV Systolic Diameter PLAX 2.2 cm IVS Diastolic Thickness 1.0 cm 0.6 - 1.0 / 0.6 - 0.9 cm LVPW Diastolic Thickness 1.1 cm 0.6 - 1.0 / 0.6 - 0.9 cm LV Relative Wall Thickness 0.7 RV Internal Dim ED PLAX 3.5 cm LA Volume 36.7 cm??? 18 - 58 / 22 - 52 cm??? LA Volume Index 21.6 cm???/m??? 16 - 28 cm???/m??? M-MODE Aortic Root Diameter MM 2.6 cm LA Systolic Diameter MM 3.5 cm LA Ao Ratio MM 1.3 AV Cusp Separation MM 1.8 cm DOPPLER AV Peak Velocity 136.2 cm/s AV Peak Gradient 7.4 mmHg AV Mean Velocity 94.1 cm/s AV Mean Gradient 4.1 mmHg AV Velocity Time Integral 23.6 cm LVOT Peak Velocity 122.0 cm/s LVOT Peak Gradient 6.0 mmHg LVOT Velocity Time Integral 24.7 cm MV Area PHT 4.0 cm??? Mitral E Point Velocity 108.4 cm/s Mitral A Point Velocity 54.4 cm/s Mitral E to A Ratio 2.0 MV Deceleration Time 189.5 ms MV E' Velocity 10.1 cm/s Mitral E to MV E' Ratio 10.7 FINDINGS Left Ventricle Mildly increased left ventricular wall thickness. Left ventricular cavity size normal. No obvious regional wall motion abnormalities. Left ventricular ejection fraction is estimated at 50-55 %. Right Ventricle Right ventricular dilatation. Right ventricular systolic pressure within normal limits. Right Atrium Normal right atrial size. Left Atrium Normal left atrial size. Mitral Valve No mitral stenosis, regurgitation or prolapse. Aortic Valve No aortic valve stenosis or regurgitation. Tricuspid Valve Structurally normal tricuspid valve. No tricuspid stenosis, regurgitation or prolapse. Pulmonic Valve Structurally normal pulmonic valve. Trace pulmonic regurgitation. Pericardium No pericardial effusion. Aorta Normal size aortic root and proximal ascending aorta. CONCLUSIONS Normal LV function Previewed by: Dr. Terence Wilkerson MD (Electronically Signed) Final Date: 25 February 2023 12:32
[2023-02-25 15:09] LABS: Basophils # (A) 0.17 X 10*3/uL (0.00-0.10); Basophils % (A) 0.7 %; Eosinophils # (A) 0.36 X 10*3/uL (0.04-0.35); Eosinophils % (A) 1.6 %; HCT 36.3 % (37.2-46.3); HGB 11.4 g/dL (12.0-15.0); Lymphocytes # (A) 1.73 X 10*3/uL (0.90-5.00); Lymphocytes % (A) 7.6 %; MCH 27.2 pg (27.0-32.0); MCHC 31.4 g/dL (32.0-37.0); MCV 86.6 FL (80.0-97.0); Mean Platelet Volume 9.9 FL (9.5-12.2); Monocytes # (A) 0.99 X 10*3/uL (0.20-1.00); Monocytes % (A) 4.3 %; NRBC Per 100 WBC 0.04 X 10*3/uL (0.00-0.01); Neutrophils # (A) 18.62 X 10*3/uL (1.80-7.70); Neutrophils % (A) 81.4 %; Platelet Count 328 X 10*3/uL (140-440); RBC 4.19 X 10*6/uL (4.10-5.20); RDW 13.5 % (11.5-14.5); WBC 22.88 X 10*3/uL (4.50-10.00)
[2023-02-25] MEDS: LEVOTHYROXINE 25 MCG TAB PO SCH (16:05)
[2023-02-25] MEDS: SERTRALINE 100 MG TAB PO SCH (16:05)
--- NOTE | 2023-02-25 17:19 | P.PN ---
Subjective Progress Note Date: 02/25/23 Hospital course: Patient is a very pleasant 20-year-old female with a past medical history of developmental delay, multiple musculoskeletal abnormalities, eczema, hypothyroidism, and depression. She presented to emergency department with a complaint of worsening redness over her feet and legs, left more than right. She was febrile and tachycardic. WBC 13.2, creatinine 0.54. X-rays concerning for diffuse soft tissue edema. ID consulted. Patient started on IV antibiotics with vancomycin. Physical exam: Vital signs reviewed and stable. General: Nontoxic, no acute distress. Derm: Skin warm and dry, normal coloration for ethnicity. Left lower extremity with significant erythema and drainage, dressing in place. Head: Atraumatic, normocephalic and symmetric. Eyes:No lid lag, and anicteric sclera Mouth: no lip lesions, mucus membranes moist Cardiovascular: regular rate and rhythm with normal S1S2, no murmur, positive posterior tibial pulses bilaterally, and cap refill < 2 seconds. Lungs: Respirations even, regular, and unlabored on room air. Lungs CTA bilaterally, no rhonchi, no rales, no wheezing, and no accessory muscle usage. Abdominal: soft, nontender to palpation, no guarding, no appreciable organomegaly Ext: Lower extremity contractures Neuro: Speech clear. Patient appropriate for developmental level, patient with history of developmental delay Psych: Alert and oriented to person, place, time, and situation. Appropriate and pleasant affect. Assessment and Plan of Care: Patient is critically ill, prognosis guarded. Sepsis secondary to lower extremity cellulitis Severe leukocytosis secondary to above Acute hypoxic respiratory failure -Blood cultures showing no growth to date -Continue IV vancomycin 1250 mg IVPB every 12 hours, monitor renal function for renal toxicity -Infectious disease following, reviewed documentation in chart -Echocardiogram completed showing EF of 50-55% with no significant valvular or structural abnormalities. -Inflammatory markers reviewed, ESR 126 and CRP 33.4. Hypothyroidism Depression Developmental delay -Continue daily medication regimen with Synthroid 25 g daily, oxybutynin 10 mg nightly, and sertraline 100 mg daily. Data and imaging reviewed: Vital signs reviewed. Blood pressure 108/75, heart rate 61, respiratory rate 20, temp 99.3F and SpO2 of 99% on 4 L O2 via nasal cannula. Labs completed and reviewed. CBC showing improvement of leukocytosis with WBC count decreasing from 30.2 down to 22.88 this morning, hemoglobin stable at 11.4. BMP unremarkable. CODE STATUS: Full code DVT prophylaxis: Heparin Anticipated discharge place: pending clinical course Anticipated discharge time: pending clinical course Patient was seen independently by Nurse Pracitioner. This document was prepared using [employer] dictation software. Please allow for errors in semiconductor packages leak tester, while rare they do occur. Objective - Vital Signs Vital signs: Vital Signs Temp 99.3 F 02/25/23 07:54 Pulse 61 02/25/23 07:54 Resp 20 02/25/23 07:54 BP 108/75 02/25/23 07:54 Pulse Ox 99 02/25/23 07:54 FiO2 Intake & Output 02/24/23 02/25/23 02/25/23 18:59 06:59 18:59 Intake Total 450 Balance 450 Intake: Oral 450 Other: Voiding Method Toilet Toilet # Voids 2 2 - Labs CBC & Chem 7: 02/25/23 07:43 02/25/23 07:43 Labs: Abnormal Lab Results - Last 24 Hours (Table) 02/24/23 02/25/23 Range/Units 06:12 07:43 WBC 29.18 H (4.50-10.00) X 10*3/uL RBC 4.05 L (4.10-5.20) X 10*6/uL Hgb 11.0 L (12.0-15.0) g/dL Hct 34.9 L (37.2-46.3) % MCHC 31.5 L (32.0-37.0) g/dL Immature Gran # 0.74 H (0.00-0.04) X 10*3/uL Neutrophils # 25.45 H (1.80-7.70) X 10*3/uL Monocytes # 1.26 H (0.20-1.00) X 10*3/uL Basophils # 0.16 H (0.00-0.10) X 10*3/uL NRBC/100 WBC Diff 0.02 H (0.00-0.01) X 10*3/uL Glucose 106 H (74-99) mg/dL Microbiology - Last 24 Hours (Table) 02/23/23 02:00 Blood Culture - Preliminary Blood 02/23/23 02:15 Blood Culture - Preliminary Blood
[2023-02-25] MEDS: FUROSEMIDE 40 MG TAB PO SCH (18:45)
[2023-02-25] MEDS: OXYBUTYNIN 10 MG TAB.ER.24 PO SCH (21:26)
[2023-02-26] MEDS: KETOROLAC 15 MG/ML 1 ML VIAL IVP SCH ×4 (00:26→20:30)
[2023-02-26] MEDS: HEPARIN SODIUM,PORCINE 5,000 UNIT/ML 1 ML VIAL SQ SCH ×3 (03:07→15:22)
[2023-02-26] MEDS ORDERED: VANCOMYCIN TROUGH DUE 1 EACH MISC MISCELLANE ONE (08:00)
[2023-02-26 09:54] LABS: African American GFR (CKD) >90 (>60 ml/min/1.73 sqM); Non-African American GFR(CKD) >90 (>60 ml/min/1.73 sqM)
[2023-02-26] MEDS: VANCOMYCIN 1,250 MG in SODIUM CHLORIDE 0.9% 250 ML IVPB SCH ×2 (11:00→15:43)
[2023-02-26 11:31] LABS: Glucose,Whole Blood 111 mg/dL (70-110)
--- NOTE | 2023-02-26 14:06 | P.PN ---
Subjective Progress Note Date: 02/26/23 Hospital course: Patient is a very pleasant 20-year-old female with a past medical history of developmental delay, multiple musculoskeletal abnormalities, eczema, hypothyroidism, and depression. She presented to emergency department with a complaint of worsening redness over her feet and legs, left more than right. She was febrile and tachycardic. WBC 13.2, creatinine 0.54. X-rays concerning for diffuse soft tissue edema. ID consulted. Patient started on IV antibiotics with vancomycin. Physical exam: Vital signs reviewed and stable. General: Nontoxic, no acute distress. Derm: Skin warm and dry, normal coloration for ethnicity. Left lower extremity with significant erythema and drainage, dressing in place. Head: Atraumatic, normocephalic and symmetric. Eyes:No lid lag, and anicteric sclera Mouth: no lip lesions, mucus membranes moist Cardiovascular: regular rate and rhythm with normal S1S2, no murmur, positive posterior tibial pulses bilaterally, and cap refill < 2 seconds. Lungs: Respirations even, regular, and unlabored on room air. Lungs CTA bilaterally, no rhonchi, no rales, no wheezing, and no accessory muscle usage. Abdominal: soft, nontender to palpation, no guarding, no appreciable organomegaly Ext: Lower extremity contractures Neuro: Speech clear. Patient appropriate for developmental level, patient with history of developmental delay Psych: Alert and oriented to person, place, time, and situation. Appropriate and pleasant affect. Assessment and Plan of Care: Patient is critically ill, prognosis guarded. Sepsis secondary to lower extremity cellulitis Severe leukocytosis secondary to above Acute hypoxic respiratory failure -Blood cultures showing no growth to date -Continue IV vancomycin dose decreased to 1000 mg every 12 hours secondary to slightly elevated vancomycin trough of 28.5, renal function remains stable with creatinine of 0.83 and GFR greater than 90 showing no signs of vancomycin with associated renal toxicity. -Infectious disease following, reviewed documentation in chart -Echocardiogram completed showing EF of 50-55% with no significant valvular or structural abnormalities. -Inflammatory markers reviewed, ESR 126 and CRP 33.4. Hypothyroidism Depression Developmental delay -Continue daily medication regimen with Synthroid 25 g daily, oxybutynin 10 mg nightly, and sertraline 100 mg daily. Data and imaging reviewed: Vital signs reviewed. Blood pressure 116/72, heart rate 96, respiratory rate 20, temp 99.2F, and SpO2 of 97% on room air. Labs completed and reviewed. Vancomycin trough 28.5, renal function remains stable with creatinine of 0.83 and GFR greater than 90 CODE STATUS: Full code DVT prophylaxis: Heparin Anticipated discharge place: pending clinical course Anticipated discharge time: pending clinical course Patient was seen independently by Nurse Pracitioner. This document was prepared using [employer] dictation software. Please allow for errors in muck operator, while rare they do occur. Objective - Vital Signs Vital signs: Vital Signs Temp 99.2 F 02/26/23 07:28 Pulse 96 02/26/23 07:28 Resp 20 02/26/23 07:28 BP 116/72 02/26/23 07:28 Pulse Ox 97 02/26/23 07:28 FiO2 Intake & Output 02/25/23 02/26/23 02/26/23 18:59 06:59 18:59 Other: Voiding Method Toilet Toilet # Voids 4 - Labs CBC & Chem 7: 02/25/23 07:43 02/26/23 09:06 Labs: Abnormal Lab Results - Last 24 Hours (Table) 02/25/23 02/25/23 Range/Units 07:43 07:43 WBC 22.88 H (4.50-10.00) X 10*3/uL Hgb 11.4 L (12.0-15.0) g/dL Hct 36.3 L (37.2-46.3) % MCHC 31.4 L (32.0-37.0) g/dL Immature Gran # 1.01 H (0.00-0.04) X 10*3/uL Neutrophils # 18.62 H (1.80-7.70) X 10*3/uL Eosinophils # 0.36 H (0.04-0.35) X 10*3/uL Basophils # 0.17 H (0.00-0.10) X 10*3/uL NRBC/100 WBC Diff 0.04 H (0.00-0.01) X 10*3/uL Glucose 106 H (74-99) mg/dL Microbiology - Last 24 Hours (Table) 02/23/23 02:00 Blood Culture - Preliminary Blood 02/23/23 02:15 Blood Culture - Preliminary Blood
[2023-02-26] MEDS: SERTRALINE 100 MG TAB PO SCH (15:22)
[2023-02-26] MEDS: FUROSEMIDE 40 MG TAB PO SCH (15:23)
[2023-02-26] MEDS: LEVOTHYROXINE 25 MCG TAB PO SCH (15:23)
--- NOTE | 2023-02-26 17:57 | P.PN ---
Subjective Progress Note Date: 02/24/23 Principal diagnosis: Reason for follow-up with sepsis and left lower extremity cellulitis Patient is a 28-year-old female with a past medical history significant for developmental delay, patient was brought into the hospital by her mother concerning for a fever, patient was noticed to have a sepsis and left lower extremity cellulitis did have multiple antibiotic allergies. On today's evaluation that is 02/24/2023 patient did have improvement in the fever pattern and did have a low-grade fever of 99.9 F this morning patient is breathing comfortably on room air less distressed with the mother at the bedside left leg swelling redness slightly decreased no diarrhea has been reported. Patient white count of 29.18 creatinine 0.67 blood cultures so far negative Objective - Vital Signs Vital signs: Vital Signs Temp 98.9 F 02/24/23 12:32 Pulse 112 H 02/24/23 12:32 Resp 20 02/24/23 12:32 BP 108/65 02/24/23 12:32 Pulse Ox 96 02/24/23 12:32 FiO2 Intake & Output 02/23/23 02/24/23 02/24/23 18:59 06:59 18:59 Intake Total 2019 Balance 2019 Weight 68.039 kg Intake: Intake, IV Titration 1540 Amount Sodium Chloride 0.9% 1, 1040 000 ml @ 130 mls/hr IV . Q7H42M [facility] Rx#:[id number] Vancomycin 1,250 mg In 500 Sodium Chloride 0.9% 250 ml @ 125 mls/hr IVPB Q8H [facility] Rx#:[id number] Oral 480 Other: Voiding Method Toilet Toilet # Bowel Movements 0 - Exam GENERAL DESCRIPTION: Middle-age lying in bed in no distress RESPIRATORY SYSTEM: Unlabored breathing , decreased breath sounds at bases HEART: S1 S2 regular rate and rhythm , ABDOMEN: Soft , no tenderness EXTREMITIES: Left lower extremity with diffuse swelling redness slightly decreased - Labs CBC & Chem 7: 02/25/23 07:43 02/26/23 09:06 Labs: Abnormal Lab Results - Last 24 Hours (Table) 02/24/23 02/24/23 Range/Units 06:12 06:12 WBC 29.18 H (4.50-10.00) X 10*3/uL RBC 4.05 L (4.10-5.20) X 10*6/uL Hgb 11.0 L (12.0-15.0) g/dL Hct 34.9 L (37.2-46.3) % MCHC 31.5 L (32.0-37.0) g/dL Immature Gran # 0.74 H (0.00-0.04) X 10*3/uL Neutrophils # 25.45 H (1.80-7.70) X 10*3/uL Monocytes # 1.26 H (0.20-1.00) X 10*3/uL Basophils # 0.16 H (0.00-0.10) X 10*3/uL NRBC/100 WBC Diff 0.02 H (0.00-0.01) X 10*3/uL Chloride 112 H (98-107) mmol/L Carbon Dioxide 19 L (22-30) mmol/L Glucose 102 H (74-99) mg/dL Microbiology - Last 24 Hours (Table) 02/23/23 02:00 Blood Culture - Preliminary Blood 02/23/23 02:15 Blood Culture - Preliminary Blood Assessment and Plan (1) Left leg cellulitis Current Visit: Yes Status: Acute Code(s): L03.116 - CELLULITIS OF LEFT LOWER LIMB SNOMED Code(s): 53882543025346441 (2) Allergy to multiple antibiotics Current Visit: Yes Status: Acute Code(s): Z88.1 - ALLERGY STATUS TO OTHER ANTIBIOTIC AGENTS SNOMED Code(s): 316479604 (3) Sepsis Current Visit: Yes Status: Acute Code(s): A41.9 - SEPSIS, UNSPECIFIED ORGANISM SNOMED Code(s): 66881448 Plan: 1patient was in the hospital with sepsis in this patient who did have a fever tachycardia elevated white count source is acute left lower extremity cellulitis with rapid progression of the cellulitis more likely streptococcal disease 2patient with multiple antibiotic ALLERGIES that would limit the number of antibiotic safe to use 3patient to continue withvancomycin pharmacy to dose target trough of 15 while watching kidney function and Vanco trough closely Dictation was produced using [employer] dictation software. please excuse any grammatical, word or spelling errors. Time with Patient: Less than 30
--- NOTE | 2023-02-26 17:59 | P.PN ---
Subjective Progress Note Date: 02/25/23 Principal diagnosis: Reason for follow-up with sepsis and left lower extremity cellulitis Patient is a 28-year-old female with a past medical history significant for developmental delay, patient was brought into the hospital by her mother concerning for a fever, patient was noticed to have a sepsis and left lower extremity cellulitis did have multiple antibiotic allergies. On today's evaluation that is 02/25/2023 patient did have improvement in the fever pattern and the patient is afebrile this morning, patient is breathing comfortably on room air less distressed with the mother at the bedside left leg swelling redness slightly decreased no diarrhea has been reported. Patient white count is down to 22.8, creatinine 0.94 Vanco trough is 27, blood cultures so far negative Objective - Vital Signs Vital signs: Vital Signs Temp 99.3 F 02/25/23 07:54 Pulse 61 02/25/23 08:05 Resp 20 02/25/23 07:54 BP 108/75 02/25/23 07:54 Pulse Ox 99 02/25/23 07:54 FiO2 Intake & Output 02/24/23 02/25/23 02/25/23 18:59 06:59 18:59 Intake Total 450 Balance 450 Intake: Oral 450 Other: Voiding Method Toilet Toilet Toilet # Voids 2 2 - Exam GENERAL DESCRIPTION: Middle-age lying in bed in no distress RESPIRATORY SYSTEM: Unlabored breathing , decreased breath sounds at bases HEART: S1 S2 regular rate and rhythm , ABDOMEN: Soft , no tenderness EXTREMITIES: Left lower extremity with diffuse swelling redness slightly decreased - Labs CBC & Chem 7: 02/25/23 07:43 02/26/23 09:06 Labs: Abnormal Lab Results - Last 24 Hours (Table) 02/25/23 Range/Units 07:43 Glucose 106 H (74-99) mg/dL Microbiology - Last 24 Hours (Table) 02/23/23 02:00 Blood Culture - Preliminary Blood 02/23/23 02:15 Blood Culture - Preliminary Blood Assessment and Plan (1) Allergy to multiple antibiotics Current Visit: Yes Status: Acute Code(s): Z88.1 - ALLERGY STATUS TO OTHER ANTIBIOTIC AGENTS SNOMED Code(s): 138649257 (2) Left leg cellulitis Current Visit: Yes Status: Acute Code(s): L03.116 - CELLULITIS OF LEFT LOWER LIMB SNOMED Code(s): 81660403002267410 (3) Leukocytosis Current Visit: Yes Status: Acute Code(s): D72.829 - ELEVATED WHITE BLOOD CELL COUNT, UNSPECIFIED SNOMED Code(s): 928242550 Plan: 1patient was in the hospital with sepsis in this patient who did have a fever tachycardia elevated white count source is acute left lower extremity cellulitis with rapid progression of the cellulitis more likely streptococcal disease 2patient with multiple antibiotic ALLERGIES that would limit the number of antibiotic safe to use 3patient did have some clinical improvement and resolution of the fever, patient to continue withvancomycin pharmacy to dose target trough of 15 while watching kidney function and Vanco trough closely Dictation was produced using [employer] dictation software. please excuse any grammatical, word or spelling errors. Time with Patient: Less than 30
--- NOTE | 2023-02-26 18:00 | P.PN ---
Subjective Progress Note Date: 02/26/23 Principal diagnosis: Reason for follow-up with sepsis and left lower extremity cellulitis Patient is a 28-year-old female with a past medical history significant for developmental delay, patient was brought into the hospital by her mother concerning for a fever, patient was noticed to have a sepsis and left lower extremity cellulitis did have multiple antibiotic allergies. On today's evaluation that is 02/26/2023 patient did have a low-grade fever 100 F earlier this morning however the patient is afebrile this morning, patient is breathing comfortably on room air less distressed with the mother at the bedside left leg swelling redness slightly decreased no diarrhea has been reported. Patient white count is down to 22.8, creatinine 0.94 as of 02/25/2023 no CBC was done today Vanco trough is 27, blood cultures so far negative Objective - Vital Signs Vital signs: Vital Signs Temp 98.9 F 02/26/23 13:57 Pulse 90 02/26/23 13:57 Resp 21 02/26/23 13:57 BP 122/67 02/26/23 13:57 Pulse Ox 95 02/26/23 13:57 FiO2 Intake & Output 02/25/23 02/26/23 02/26/23 18:59 06:59 18:59 Other: Voiding Method Toilet Toilet Toilet # Voids 4 - Exam GENERAL DESCRIPTION: Middle-age lying in bed in no distress RESPIRATORY SYSTEM: Unlabored breathing , decreased breath sounds at bases HEART: S1 S2 regular rate and rhythm , ABDOMEN: Soft , no tenderness EXTREMITIES: Left lower extremity with diffuse swelling redness slightly decreased - Labs CBC & Chem 7: 02/25/23 07:43 02/26/23 09:06 Labs: Abnormal Lab Results - Last 24 Hours (Table) 02/26/23 Range/Units 11:29 POC Glucose (mg/dL) 111 H (70-110) mg/dL Microbiology - Last 24 Hours (Table) 02/23/23 02:00 Blood Culture - Preliminary Blood 02/23/23 02:15 Blood Culture - Preliminary Blood Assessment and Plan (1) Allergy to multiple antibiotics Current Visit: Yes Status: Acute Code(s): Z88.1 - ALLERGY STATUS TO OTHER ANTIBIOTIC AGENTS SNOMED Code(s): 111097517 (2) Left leg cellulitis Current Visit: Yes Status: Acute Code(s): L03.116 - CELLULITIS OF LEFT LOWER LIMB SNOMED Code(s): 62922178837130516 (3) Leukocytosis Current Visit: Yes Status: Acute Code(s): D72.829 - ELEVATED WHITE BLOOD CELL COUNT, UNSPECIFIED SNOMED Code(s): 383740005 Plan: 1patient was in the hospital with sepsis in this patient who did have a fever tachycardia elevated white count source is acute left lower extremity cellulitis with rapid progression of the cellulitis more likely streptococcal disease 2patient with multiple antibiotic ALLERGIES that would limit the number of antibiotic safe to use 3patient did have some clinical improvement and resolution of the fever still have swelling to the left lower extremity we will apply Jarred wrap to keep the swelling down 4- patient to continue withvancomycin pharmacy to dose target trough of 15 w hile watching kidney function and Vanco trough closely Dictation was produced using [employer] dictation software. please excuse any grammatical, word or spelling errors. Time with Patient: Less than 30
[2023-02-26] MEDS: OXYBUTYNIN 10 MG TAB.ER.24 PO SCH (20:30)
[2023-02-27] MEDS: KETOROLAC 15 MG/ML 1 ML VIAL IVP SCH ×4 (01:07→16:35)
[2023-02-27] MEDS: HEPARIN SODIUM,PORCINE 5,000 UNIT/ML 1 ML VIAL SQ SCH ×3 (01:08→16:35)
[2023-02-27] MEDS: VANCOMYCIN 1,250 MG in SODIUM CHLORIDE 0.9% 250 ML IVPB SCH (06:12)
[2023-02-27 10:50] LABS: HCT 36.1 % (37.2-46.3); HGB 11.5 g/dL (12.0-15.0); MCH 26.7 pg (27.0-32.0); MCHC 31.9 g/dL (32.0-37.0); MCV 83.8 FL (80.0-97.0); Mean Platelet Volume 9.2 FL (9.5-12.2); NRBC Per 100 WBC 0 X 10*3/uL (0.00-0.01); Platelet Count 291 X 10*3/uL (140-440); RBC 4.31 X 10*6/uL (4.10-5.20); RDW 13.2 % (11.5-14.5)
[2023-02-27] MEDS ORDERED: medroxyPROGESTERone 150 MG/ML 1ML VIAL IM SCH (11:00)
[2023-02-27 11:07] LABS: ALT 61 U/L (8-44); AST 46 U/L (13-35); Albumin/Globulin Ratio 0.88 Ratio (1.60-3.17); Alkaline Phosphatase 130 U/L (41-126); BUN/Creat Ratio 6.67 Ratio (12.00-20.00); Calcium 8.7 mg/dL (8.7-10.3); Carbon Dioxide 28.3 mmol/L (21.6-31.8); Chloride 99 mmol/L (96-109); Globulin 3.4 g/dL (1.6-3.3); Glucose 133 mg/dL (70-110); Potassium 4.2 mmol/L (3.5-5.5); Sodium 137 mmol/L (135-145); Total Bilirubin 0.3 mg/dL (0.3-1.2); Total Protein 6.4 g/dL (6.2-8.2)
[2023-02-27] MEDS: CLINDAMYCIN 600 MG in DEXTROSE 5% IN WATER 50 ML IVPB SCH ×4 (14:35→21:07)
--- NOTE | 2023-02-27 14:59 | P.PN ---
Subjective Progress Note Date: 02/27/23 Hospital course: Patient is a very pleasant 20-year-old female with a past medical history of developmental delay, multiple musculoskeletal abnormalities, eczema, hypothyroidism, and depression. She presented to emergency department with a complaint of worsening redness over her feet and legs, left more than right. She was febrile and tachycardic. Labs revealing significant leukocytosis with WBC count of 30.2, ESR of 126, and CRP of 33.4. Liver profile also revealing transaminitis with AST of 79, ALT of 85, and alkaline phosphatase of 180. X- rays concerning for diffuse soft tissue edema. Patient was admitted under our services with consult to infectious disease. She was started on IV antibiotics with vancomycin. Patient also with increasing oxygenation needs and a chest x- ray was completed showing large body habitus with marked hypoventilatory changes, cardiomegaly, and possible mild interstitial opacities concerning for pulmonary vascular congestion. Bilateral lower extremity Dopplers were completed and negative for DVTs. Echocardiogram was ordered secondary to concerns of right heart failure with possible pulmonary vascular congestion and elevated liver enzymes. Echocardiogram completed showing a preserved EF of 50- 55% with no significant valvular or structural abnormalities reported. Physical exam: Vital signs reviewed and stable. General: Nontoxic, no acute distress. Derm: Skin warm and dry, normal coloration for ethnicity. Left lower extremity with moderate erythema with blisters and drainage, dressing in place. Head: Atraumatic, normocephalic and symmetric. Eyes:No lid lag, and anicteric sclera Mouth: no lip lesions, mucus membranes moist Cardiovascular: regular rate and rhythm with normal S1S2, no murmur, positive posterior tibial pulses bilaterally, and cap refill < 2 seconds. Lungs: Respirations even, regular, and unlabored on room air. Lungs CTA bilaterally, no rhonchi, no rales, no wheezing, and no accessory muscle usage. Abdominal: soft, nontender to palpation, no guarding, no appreciable organomegaly Ext: Lower extremity contractures Neuro: Speech clear. Patient appropriate for developmental level, patient with history of developmental delay Psych: Alert and oriented to person, place, time, and situation. Appropriate and pleasant affect. Assessment and Plan of Care: Sepsis secondary to lower extremity cellulitis Severe leukocytosis secondary to above Acute hypoxic respiratory failure. Transaminitis, suspected reactive secondary to sepsis -Blood cultures showing no growth to date -Continue IV vancomycin dose decreased to 1000 mg every 12 hours secondary to slightly elevated vancomycin trough of 28.5, renal function remains stable with creatinine of 0.83 and GFR greater than 90 showing no signs of vancomycin with associated renal toxicity. -Infectious disease following, reviewed documentation in chart -Echocardiogram completed showing EF of 50-55% with no significant valvular or structural abnormalities. -Inflammatory markers reviewed, ESR 126 and CRP 33.4. Hypothyroidism Depression Developmental delay -Continue daily medication regimen with Synthroid 25 g daily, oxybutynin 10 mg nightly, and sertraline 100 mg daily. Data and imaging reviewed: Vital signs reviewed. Blood pressure 110/72, heart rate 60, respiratory rate 20, temp 98.4F, SpO2 99% on room air. Labs completed and reviewed. CBC showing persistent leukocytosis with WBC count of 22.80 and stable normocytic anemia with hemoglobin of 11.5. BMP unremarkable. Liver enzymes remain slightly elevated with AST of 46, ALT 61, an alkaline phosphatase of 130. CODE STATUS: Full code DVT prophylaxis: Heparin Anticipated discharge place: pending clinical course Anticipated discharge time: pending clinical course Patient was seen independently by Nurse Pracitioner. This document was prepared using [email or web address] dictation software. Please allow for errors in mercury washer, while rare they do occur. Nicolas Israel NP rendered care for this patient independently, reviewed the findings and plan as documented in the note above. I did not physically speak with or examine the patient on this date. Objective - Vital Signs Vital signs: Vital Signs Temp 98.5 F 02/27/23 01:07 Pulse 71 02/27/23 01:07 Resp 20 02/27/23 01:07 BP 97/56 02/27/23 01:07 Pulse Ox 99 02/27/23 01:07 FiO2 Intake & Output 02/26/23 02/27/23 02/27/23 18:59 06:59 18:59 Other: Voiding Method Toilet Toilet # Voids 5 3 - Labs CBC & Chem 7: 02/27/23 07:50 02/27/23 07:50 Labs: Abnormal Lab Results - Last 24 Hours (Table) 02/26/23 Range/Units 11:29 POC Glucose (mg/dL) 111 H (70-110) mg/dL Microbiology - Last 24 Hours (Table) 02/23/23 02:00 Blood Culture - Preliminary Blood 02/23/23 02:15 Blood Culture - Preliminary Blood
[2023-02-27] MEDS: SERTRALINE 100 MG TAB PO SCH (16:35)
[2023-02-27] MEDS: LEVOTHYROXINE 25 MCG TAB PO SCH (16:35)
[2023-02-27] MEDS: FUROSEMIDE 40 MG TAB PO SCH (16:35)
[2023-02-27] MEDS: OXYBUTYNIN 10 MG TAB.ER.24 PO SCH (21:06)
[2023-02-28] MEDS: HEPARIN SODIUM,PORCINE 5,000 UNIT/ML 1 ML VIAL SQ SCH ×4 (00:13→23:29)
[2023-02-28] MEDS: KETOROLAC 15 MG/ML 1 ML VIAL IVP SCH (00:13)
[2023-02-28] MEDS: CLINDAMYCIN 600 MG in DEXTROSE 5% IN WATER 50 ML IVPB SCH ×6 (04:18→20:48)
[2023-02-28] MEDS: SERTRALINE 100 MG TAB PO SCH (09:08)
[2023-02-28] MEDS: FUROSEMIDE 40 MG TAB PO SCH (09:08)
[2023-02-28] MEDS: LEVOTHYROXINE 25 MCG TAB PO SCH (09:08)
[2023-02-28 09:25] LABS: HCT 31.5 % (37.2-46.3); MCH 26.8 pg (27.0-32.0); MCHC 31.7 g/dL (32.0-37.0); MCV 84.5 FL (80.0-97.0); Mean Platelet Volume 9.8 FL (9.5-12.2); NRBC Per 100 WBC 0 X 10*3/uL (0.00-0.01); Platelet Count 243 X 10*3/uL (140-440); RBC 3.73 X 10*6/uL (4.10-5.20); RDW 13.1 % (11.5-14.5); WBC 18.47 X 10*3/uL (4.50-10.00)
[2023-02-28 09:36] LABS: BUN/Creat Ratio 6.47 Ratio (12.00-20.00); Blood Urea Nitrogen 12.3 mg/dL (9.0-27.0); Glucose 98 mg/dL (70-110)
[2023-02-28 09:37] LABS: ALT 61 U/L (8-44); AST 52 U/L (13-35); Albumin 2.9 g/dL (3.8-4.9); Albumin/Globulin Ratio 0.85 Ratio (1.60-3.17); Alkaline Phosphatase 118 U/L (41-126); Calcium 8.7 mg/dL (8.7-10.3); Carbon Dioxide 28.1 mmol/L (21.6-31.8); Chloride 98 mmol/L (96-109); Globulin 3.4 g/dL (1.6-3.3); Sodium 136 mmol/L (135-145); Total Bilirubin 0.3 mg/dL (0.3-1.2); Total Protein 6.3 g/dL (6.2-8.2)
[2023-02-28] MEDS ORDERED: HYDROcodone/APAP 5-325MG 1 EACH TAB PO PRN (12:26)
--- NOTE | 2023-02-28 12:28 | P.PN ---
Subjective Progress Note Date: 02/28/23 Hospital course: Patient is a very pleasant 20-year-old female with a past medical history of d evelopmental delay, multiple musculoskeletal abnormalities, eczema, hypothyroidism, and depression. She presented to emergency department with a complaint of worsening redness over her feet and legs, left more than right. She was febrile and tachycardic. Labs revealing significant leukocytosis with WBC count of 30.2, ESR of 126, and CRP of 33.4. Liver profile also revealing transaminitis with AST of 79, ALT of 85, and alkaline phosphatase of 180. X- rays concerning for diffuse soft tissue edema. Patient was admitted under our services with consult to infectious disease. She was started on IV antibiotics with vancomycin. Patient also with increasing oxygenation needs and a chest x- ray was completed showing large body habitus with marked hypoventilatory changes, cardiomegaly, and possible mild interstitial opacities concerning for pulmonary vascular congestion. Bilateral lower extremity Dopplers were completed and negative for DVTs. Echocardiogram was ordered secondary to concerns of right heart failure with possible pulmonary vascular congestion and elevated liver enzymes. Echocardiogram completed showing a preserved EF of 50- 55% with no significant valvular or structural abnormalities reported. Physical exam: Vital signs reviewed and stable. General: Nontoxic, no acute distress. Derm: Skin warm and dry, normal coloration for ethnicity. Left lower extremity with moderate erythema with blisters and drainage, dressing in place. Head: Atraumatic, normocephalic and symmetric. Eyes:No lid lag, and anicteric sclera Mouth: no lip lesions, mucus membranes moist Cardiovascular: regular rate and rhythm with normal S1S2, no murmur, positive posterior tibial pulses bilaterally, and cap refill < 2 seconds. Lungs: Respirations even, regular, and unlabored on room air. Lungs CTA bilaterally, no rhonchi, no rales, no wheezing, and no accessory muscle usage. Patient does have some upper respiratory noises Abdominal: soft, nontender to palpation, no guarding, no appreciable organomegaly Ext: Lower extremity contractures Neuro: Speech clear. Patient appropriate for developmental level, patient with history of developmental delay Psych: Appropriate and pleasant affect. Assessment and Plan of Care: Sepsis secondary to lower extremity cellulitis Severe leukocytosis secondary to above Acute hypoxic respiratory failure. Transaminitis, suspected reactive secondary to sepsis Acute kidney injury -Blood cultures showing no growth to date -Continue IV vancomycin, monitor for renal toxicity, daily BMP -Continue IV clindamycin 600 mg every 8 hours -Infectious disease following -Echocardiogram completed showing EF of 50-55% with no significant valvular or structural abnormalities. -Inflammatory markers reviewed, ESR 126 and CRP 33.4. -Discontinue oral diuretics -Renal ultrasound ordered -Ibuprofen and morphine discontinued, started on oral [place] 5 as needed, monitor for sedation Hypothyroidism Depression Developmental delay -Continue daily medication regimen with Synthroid 25 g daily, oxybutynin 10 mg nightly, and sertraline 100 mg daily. Data and imaging reviewed: WBC 18.47, hemoglobin 10, creatinine 1.9 CODE STATUS: Full code DVT prophylaxis: Heparin Anticipated discharge place: pending clinical course Anticipated discharge time: pending clinical course Objective - Vital Signs Vital signs: Vital Signs Temp 97.0 F L 02/28/23 06:51 Pulse 95 02/28/23 06:51 Resp 18 02/28/23 06:51 BP 124/77 02/28/23 06:51 Pulse Ox 99 02/28/23 02:14 FiO2 Intake & Output 02/27/23 02/28/23 02/28/23 18:59 06:59 18:59 Other: Voiding Method Toilet Toilet Diaper # Voids 2 3 # Bowel Movements 0 - Labs CBC & Chem 7: 02/28/23 06:24 02/28/23 06:24 Labs: Abnormal Lab Results - Last 24 Hours (Table) 02/28/23 02/28/23 Range/Units 06:24 06:24 WBC 18.47 H (4.50-10.00) X 10*3/uL RBC 3.73 L (4.10-5.20) X 10*6/uL Hgb 10.0 L (12.0-15.0) g/dL Hct 31.5 L (37.2-46.3) % MCH 26.8 L (27.0-32.0) pg MCHC 31.7 L (32.0-37.0) g/dL Creatinine 1.9 H (0.6-1.5) mg/dL Est GFR (CKD-EPI) 36 L (>=60) BUN/Creatinine Ratio 6.47 L (12.00-20.00) Ratio AST 52 H (13-35) U/L ALT 61 H (8-44) U/L Albumin 2.9 L (3.8-4.9) g/dL Globulin 3.4 H (1.6-3.3) g/dL Albumin/Globulin Ratio 0.85 L (1.60-3.17) Ratio
--- NOTE | 2023-02-28 12:58 | US ---
EXAMINATION TYPE: US kidneys/renal and bladder DATE OF EXAM: 02/28/2023 COMPARISON: NONE CLINICAL INDICATION: Female, 28 years old with history of RHONA EXAM MEASUREMENTS: Right Kidney: 8.3 x 4.8 x 4.5 cm Left Kidney: 9.8 x 5.0 x 5.0 cm Generation Mechanic Helper notes: Limited visualization due to mentally challenged pt, large body habitus Right Kidney: Generation Mechanic Helper notes: No evidence of hydro, limited views, small in size, however pt 4 fee t tall Left Kidney: No evidence of hydro, limited views Bladder: Unable to visualize due to pt position IMPRESSION: Exam limitations as above. No evident hydronephrosis on either side. Unable to adequately visualize t he bladder.
[2023-02-28 13:00] VITALS: BMI 45.8
--- NOTE | 2023-02-28 15:16 | P.PN ---
Subjective Progress Note Date: 02/27/23 Principal diagnosis: Reason for follow-up with sepsis and left lower extremity cellulitis Patient is a 28-year-old female with a past medical history significant for developmental delay, patient was brought into the hospital by her mother concerning for a fever, patient was noticed to have a sepsis and left lower extremity cellulitis did have multiple antibiotic allergies. On today's evaluation that is 02/27/2023 patient is afebrile this morning, patient is breathing comfortably on room air less distressed with the mother at the bedside, left leg swelling redness seem to have slightly increased no vomiting or diarrhea has been reported by the mother patient cannot provide any history Patient white count is still elevated at 22.8, creatinine of 1.2, blood cultures so far negative Objective - Vital Signs Vital signs: Vital Signs Temp 98.4 F 02/27/23 08:20 Pulse 60 02/27/23 08:20 Resp 20 02/27/23 08:20 BP 110/72 02/27/23 08:20 Pulse Ox 99 02/27/23 08:20 FiO2 Intake & Output 02/26/23 02/27/23 02/27/23 18:59 06:59 18:59 Other: Voiding Method Toilet Toilet Toilet # Voids 5 3 - Exam GENERAL DESCRIPTION: Middle-age lying in bed in no distress RESPIRATORY SYSTEM: Unlabored breathing , decreased breath sounds at bases HEART: S1 S2 regular rate and rhythm , ABDOMEN: Soft , no tenderness EXTREMITIES: Left lower extremity with diffuse swelling redness slightly increased from yesterday - Labs CBC & Chem 7: 02/28/23 06:24 02/28/23 06:24 Labs: Abnormal Lab Results - Last 24 Hours (Table) 02/26/23 02/27/23 Range/Units 11:29 07:50 WBC 22.80 H (4.50-10.00) X 10*3/uL Hgb 11.5 L (12.0-15.0) g/dL Hct 36.1 L (37.2-46.3) % MCH 26.7 L (27.0-32.0) pg MCHC 31.9 L (32.0-37.0) g/dL MPV 9.2 L (9.5-12.2) FL POC Glucose (mg/dL) 111 H (70-110) mg/dL Microbiology - Last 24 Hours (Table) 02/23/23 02:00 Blood Culture - Preliminary Blood 02/23/23 02:15 Blood Culture - Preliminary Blood Assessment and Plan (1) Allergy to multiple antibiotics Current Visit: Yes Status: Acute Code(s): Z88.1 - ALLERGY STATUS TO OTHER ANTIBIOTIC AGENTS SNOMED Code(s): 540790232 (2) Left leg cellulitis Current Visit: Yes Status: Acute Code(s): L03.116 - CELLULITIS OF LEFT LOWER LIMB SNOMED Code(s): 67680181697409442 (3) Leukocytosis Current Visit: Yes Status: Acute Code(s): D72.829 - ELEVATED WHITE BLOOD CELL COUNT, UNSPECIFIED SNOMED Code(s): 336051523 Plan: 1patient was in the hospital with sepsis in this patient who did have a fever tachycardia elevated white count source is acute left lower extremity cellulitis with rapid progression of the cellulitis more likely streptococcal disease 2patient with multiple antibiotic ALLERGIES that would limit the number of antibiotic safe to use 3patient did have some clinical improvement and resolution of the fever still have swelling to the left lower extremity we will apply Jarred wrap to keep the s welling down 4- patient noticed to have slight worsening of the cellulitis and also have persistent elevated white count we will go ahead and discontinue vancomycin start the patient on clindamycin and see clinical response Dictation was produced using [employer] dictation software. please excuse any g rammatical, word or spelling errors. Time with Patient: Less than 30
--- NOTE | 2023-02-28 15:18 | P.PN ---
Subjective Progress Note Date: 02/28/23 Principal diagnosis: Reason for follow-up with sepsis and left lower extremity cellulitis Patient is a 28-year-old female with a past medical history significant for developmental delay, patient was brought into the hospital by her mother concerning for a fever, patient was noticed to have a sepsis and left lower extremity cellulitis did have multiple antibiotic allergies. On today's evaluation that is 02/28/2023 patient remains to be afebrile , patient is breathing comfortably on room air, no cough vomiting or diarrhea has been reported by the mother left leg swelling redness and slightly decreased and no drainage Patient white count is down to 18.47, creatinine slightly up to 1.9 Objective - Vital Signs Vital signs: Vital Signs Temp 97.0 F L 02/28/23 06:51 Pulse 95 02/28/23 06:51 Resp 18 02/28/23 06:51 BP 124/77 02/28/23 06:51 Pulse Ox 99 02/28/23 02:14 FiO2 Intake & Output 02/27/23 02/28/23 02/28/23 18:59 06:59 18:59 Intake Total 50 Balance 50 Weight 68.039 kg Intake: Intake, IV Titration 50 Amount Clindamycin 600 mg In 50 Dextrose 5% in Water 50 ml @ 50 mls/hr IVPB Q8H [facility] Rx#:[id number] Other: Voiding Method Toilet Toilet Diaper # Voids 2 3 # Bowel Movements 0 - Exam GENERAL DESCRIPTION: Middle-age lying in bed in no distress RESPIRATORY SYSTEM: Unlabored breathing , decreased breath sounds at bases HEART: S1 S2 regular rate and rhythm , ABDOMEN: Soft , no tenderness EXTREMITIES: Left lower extremity swelling redness has slightly decreased - Labs CBC & Chem 7: 02/28/23 06:24 02/28/23 06:24 Labs: Abnormal Lab Results - Last 24 Hours (Table) 02/28/23 02/28/23 Range/Units 06:24 06:24 WBC 18.47 H (4.50-10.00) X 10*3/uL RBC 3.73 L (4.10-5.20) X 10*6/uL Hgb 10.0 L (12.0-15.0) g/dL Hct 31.5 L (37.2-46.3) % MCH 26.8 L (27.0-32.0) pg MCHC 31.7 L (32.0-37.0) g/dL Creatinine 1.9 H (0.6-1.5) mg/dL Est GFR (CKD-EPI) 36 L (>=60) BUN/Creatinine Ratio 6.47 L (12.00-20.00) Ratio AST 52 H (13-35) U/L ALT 61 H (8-44) U/L Albumin 2.9 L (3.8-4.9) g/dL Globulin 3.4 H (1.6-3.3) g/dL Albumin/Globulin Ratio 0.85 L (1.60-3.17) Ratio Microbiology - Last 24 Hours (Table) 02/23/23 02:00 Blood Culture - Final Blood 02/23/23 02:15 Blood Culture - Final Blood Assessment and Plan (1) Allergy to multiple antibiotics Current Visit: Yes Status: Acute Code(s): Z88.1 - ALLERGY STATUS TO OTHER ANTIBIOTIC AGENTS SNOMED Code(s): 021722084 (2) Left leg cellulitis Current Visit: Yes Status: Acute Code(s): L03.116 - CELLULITIS OF LEFT LOWER LIMB SNOMED Code(s): 72658396564111691 (3) Leukocytosis Current Visit: Yes Status: Acute Code(s): D72.829 - ELEVATED WHITE BLOOD MELISSA L COUNT, UNSPECIFIED SNOMED Code(s): 035120098 Plan: 1patient was in the hospital with sepsis in this patient who did have a fever tachycardia elevated white count source is acute left lower extremity cellulitis with rapid progression of the cellulitis more likely streptococcal disease 2patient with multiple antibiotic ALLERGIES that would limit the number of antibiotic safe to use 3patient did have some clinical improvement and resolution of the fever still have swelling to the left lower extremity we will apply Jarred wrap to keep the swelling down 4- patient did have some improvement in the left leg redness and the white count is trending down with addition of clindamycin to continue patient however has slight worsening of the kidney function the need to monitor closely we will add probiotics Dictation was produced using [employer] dictation software. please excuse any grammatical, word or spelling errors. Time with Patient: Less than 30
[2023-02-28] MEDS: OXYBUTYNIN 10 MG TAB.ER.24 PO SCH (20:49)
[2023-02-28] MEDS: LACTOBACILLUS ACIDOPHILUS/PECT 1 EACH CAPSULE PO SCH (20:49)
[2023-03-01] MEDS: CLINDAMYCIN 600 MG in DEXTROSE 5% IN WATER 50 ML IVPB SCH ×6 (04:12→20:15)
[2023-03-01] MEDS: LEVOTHYROXINE 25 MCG TAB PO SCH (08:48)
[2023-03-01] MEDS: LACTOBACILLUS ACIDOPHILUS/PECT 1 EACH CAPSULE PO SCH ×2 (08:48→20:16)
[2023-03-01] MEDS: SERTRALINE 100 MG TAB PO SCH (08:48)
[2023-03-01] MEDS: HEPARIN SODIUM,PORCINE 5,000 UNIT/ML 1 ML VIAL SQ SCH ×2 (08:48→17:06)
[2023-03-01 11:07] LABS: HCT 30.1 % (37.2-46.3); HGB 9.7 g/dL (12.0-15.0); MCH 26.8 pg (27.0-32.0); MCHC 32.2 g/dL (32.0-37.0); MCV 83.1 FL (80.0-97.0); Mean Platelet Volume 9.2 FL (9.5-12.2); NRBC Per 100 WBC 0 X 10*3/uL (0.00-0.01); Platelet Count 279 X 10*3/uL (140-440); RBC 3.62 X 10*6/uL (4.10-5.20); RDW 12.9 % (11.5-14.5); WBC 16.41 X 10*3/uL (4.50-10.00)
[2023-03-01 11:49] LABS: BUN/Creat Ratio 6.73 Ratio (12.00-20.00); Blood Urea Nitrogen 14.8 mg/dL (9.0-27.0); Calcium 8.6 mg/dL (8.7-10.3); Chloride 96 mmol/L (96-109); Glucose 107 mg/dL (70-110); Potassium 4.4 mmol/L (3.5-5.5); Sodium 136 mmol/L (135-145)
[2023-03-01 11:56] LABS: Basophils # (M) 0.16 X 10*3/uL (0.00-0.10); Eosinophils # (M) 0.33 X 10*3/uL (0.04-0.35); Lymphocytes # (M) 0.98 X 10*3/uL (0.90-5.00); Monocytes # (M) 0.82 X 10*3/uL (0.20-1.00); Myelocytes % 1 % (0-0); Neutrophils # (M) 13.95 X 10*3/uL (1.80-7.70); Neutrophils % (M) 85 %; RBC Morphology Normal (Normal)
--- NOTE | 2023-03-01 13:09 | P.PN ---
Subjective Progress Note Date: 03/01/23 Hospital course: Patient is a very pleasant 20-year-old female with a past medical history of developmental delay, multiple musculoskeletal abnormalities, eczema, hypothyroidism, and depression. She presented to emergency department with a complaint of worsening redness over her feet and legs, left more than right. She was febrile and tachycardic. Labs revealing significant leukocytosis with WBC count of 30.2, ESR of 126, and CRP of 33.4. Liver profile also revealing transaminitis with AST of 79, ALT of 85, and alkaline phosphatase of 180. X- rays concerning for diffuse soft tissue edema. Patient was admitted for sepsis secondary to cellulitis with consult to infectious disease. She was started on IV antibiotics with vancomycin. Patient also with increasing oxygenation needs and a chest x-ray was completed showing large body habitus with marked hypoventilatory changes, cardiomegaly, and possible mild interstitial opacities concerning for pulmonary vascular congestion. Bilateral lower extremity Dopplers were completed and negative for DVTs. Echocardiogram was ordered secondary to concerns of right heart failure with possible pulmonary vascular congestion and elevated liver enzymes. Echocardiogram completed showing a preserved EF of 50-55% with no significant valvular or structural abnormalities reported. Respiratory function is normal or stable. He is having worsening renal function. Physical exam: Vital signs reviewed and stable. General: Nontoxic, no acute distress. Derm: Skin warm and dry, normal coloration for ethnicity. Left lower extremity with moderate erythema with blisters and drainage, dressing in place. Head: Atraumatic, normocephalic and symmetric. Eyes:No lid lag, and anicteric sclera Mouth: no lip lesions, mucus membranes moist Cardiovascular: regular rate and rhythm with normal S1S2, no murmur, positive posterior tibial pulses bilaterally, and cap refill < 2 seconds. Lungs: Respirations even, regular, and unlabored on room air. Lungs CTA bilaterally, no rhonchi, no rales, no wheezing, and no accessory muscle usage. Patient does have some upper respiratory noises Abdominal: soft, nontender to palpation, no guarding, no appreciable organomegaly Ext: Lower extremity contractures Neuro: Speech clear. Patient appropriate for developmental level, patient with history of developmental delay Psych: Appropriate and pleasant affect. Assessment and Plan of Care: Patient needs close monitoring, prognosis guarded Sepsis secondary to lower extremity cellulitis Severe leukocytosis secondary to above Acute hypoxic respiratory failure. Transaminitis, suspected reactive secondary to sepsis Acute kidney injury, worsening -Blood cultures showing no growth to date -Continue IV vancomycin, monitor for renal toxicity, daily BMP -Continue IV clindamycin 600 mg every 8 hours -Infectious disease following -Echocardiogram completed showing EF of 50-55% with no significant valvular or structural abnormalities. -Inflammatory markers reviewed, ESR 126 and CRP 33.4. -Nephrology consulted, urinalysis pending -Bladder scan pending -Ibuprofen and morphine discontinued, started on oral [place] 5 as needed, monitor for sedation -Diuretics also discontinue Hypothyroidism Depression Developmental delay -Continue daily medication regimen with Synthroid 25 g daily, and sertraline 100 mg daily -Oxybutynin discontinued Data and imaging reviewed: WBC 16.41, hemoglobin 9.7, creatinine 2.2, potassium 4.4 Renal ultrasound did not show any hydronephrosis, unable to visualize the bladder. CODE STATUS: Full code DVT prophylaxis: Heparin Anticipated discharge place: pending clinical course Anticipated discharge time: pending clinical course Objective - Vital Signs Vital signs: Vital Signs Temp 98.7 F 03/01/23 08:00 Pulse 73 03/01/23 08:00 Resp 18 03/01/23 08:00 BP 118/74 03/01/23 08:00 Pulse Ox 99 03/01/23 08:00 FiO2 Intake & Output 02/28/23 03/01/23 03/01/23 18:59 06:59 18:59 Intake Total 50 50 Balance 50 50 Weight 68.039 kg Intake: Intake, IV Titration 50 50 Amount Clindamycin 600 mg In 50 50 Dextrose 5% in Water 50 ml @ 50 mls/hr IVPB Q8H [facility] Rx#:[id number] Other: Voiding Method Toilet Diaper # Voids 1 1 - Labs CBC & Chem 7: 03/01/23 06:16 03/01/23 06:16 Labs: Abnormal Lab Results - Last 24 Hours (Table) 03/01/23 03/01/23 Range/Units 06:16 06:16 WBC 16.41 H (4.50-10.00) X 10*3/uL RBC 3.62 L (4.10-5.20) X 10*6/uL Hgb 9.7 L (12.0-15.0) g/dL Hct 30.1 L (37.2-46.3) % MCH 26.8 L (27.0-32.0) pg MPV 9.2 L (9.5-12.2) [place] Basophils # (Manual) 0.16 H (0.00-0.10) X 10*3/uL Creatinine 2.2 H (0.6-1.5) mg/dL Est GFR (CKD-EPI) 31 L (>=60) BUN/Creatinine Ratio 6.73 L (12.00-20.00) Ratio Calcium 8.6 L (8.7-10.3) mg/dL C-Reactive Protein 7.30 H (0.00-0.80) mg/dL Microbiology - Last 24 Hours (Table) 02/23/23 02:00 Blood Culture - Final Blood 02/23/23 02:15 Blood Culture - Final Blood
--- NOTE | 2023-03-01 15:03 | P.PN ---
Subjective Progress Note Date: 03/01/23 Principal diagnosis: Reason for follow-up with sepsis and left lower extremity cellulitis Patient is a 28-year-old female with a past medical history significant for developmental delay, patient was brought into the hospital by her mother concerning for a fever, patient was noticed to have a sepsis and left lower extremity cellulitis did have multiple antibiotic allergies. On today's evaluation that is 03/01/2023 patient continues to be afebrile , patient is breathing comfortably on room air, the patient left leg swelling redness and has decreased in intensity, patient is making good urine per the mother at the bedside no vomiting or diarrhea has been reported Patient white count is down to 16.41, creatinine slightly up to 2.2 Objective - Vital Signs Vital signs: Vital Signs Temp 98.7 F 03/01/23 08:00 Pulse 73 03/01/23 08:00 Resp 18 03/01/23 08:00 BP 118/74 03/01/23 08:00 Pulse Ox 99 03/01/23 08:00 FiO2 Intake & Output 02/28/23 03/01/23 03/01/23 18:59 06:59 18:59 Intake Total 50 Balance 50 Weight 68.039 kg Intake: Intake, IV Titration 50 Amount Clindamycin 600 mg In 50 Dextrose 5% in Water 50 ml @ 50 mls/hr IVPB Q8H [facility] Rx#:[id number] Other: Voiding Method Toilet Diaper # Voids 1 1 - Exam GENERAL DESCRIPTION: Middle-age lying in bed in no distress RESPIRATORY SYSTEM: Unlabored breathing , decreased breath sounds at bases HEART: S1 S2 regular rate and rhythm , ABDOMEN: Soft , no tenderness EXTREMITIES: Left lower extremity swelling redness has decreased in intensity - Labs CBC & Chem 7: 03/01/23 06:16 03/01/23 06:16 Labs: Microbiology - Last 24 Hours (Table) 02/23/23 02:00 Blood Culture - Final Blood 02/23/23 02:15 Blood Culture - Final Blood Assessment and Plan (1) Allergy to multiple antibiotics Current Visit: Yes Status: Acute Code(s): Z88.1 - ALLERGY STATUS TO OTHER ANTIBIOTIC AGENTS SNOMED Code(s): 695502920 (2) Left leg cellulitis Current Visit: Yes Status: Acute Code(s): L03.116 - CELLULITIS OF LEFT LOWER LIMB SNOMED Code(s): 46350344762669043 (3) Leukocytosis Current Visit: Yes Status: Acute Code(s): D72.829 - ELEVATED WHITE BLOOD CELL COUNT, UNSPECIFIED SNOMED Code(s): 680346151 Plan: 1patient was in the hospital with sepsis in this patient who did have a fever tachycardia elevated white count source is acute left lower extremity cellulitis with rapid progression of the cellulitis more likely streptococcal disease 2patient with multiple antibiotic ALLERGIES that would limit the number of antibiotic safe to use 3patient did have some clinical improvement and resolution of the fever still have swelling to the left lower extremity we will apply Jarred wrap to keep the swelling down 4- patient did have some improvement in the left leg redness and the white count is trending down however noticed to have slight worsening of the creatinine and the need to monitor closely continue with the clindamycin mother at the bedside questions were answered, Dictation was produced using [employer] dictation software. please excuse any grammatical, word or spelling errors. Time with Patient: Less than 30
[2023-03-01 22:33] LABS: Appearance,Urine Clear (Clear); Bilirubin,Urine Negative (Negative); Blood,Urine Negative (Negative); Color,Urine Colorless; Glucose,Urine (UA) Negative (Negative); Ketones,Urine Negative (Negative); Leukocyte Esterase,Urine Negative (Negative); Nitrite,Urine Negative (Negative); Protein,Urine Negative (Negative); Specific Gravity,Urine 1.011 (1.001-1.035); Urobilinogen,Urine <2.0 mg/dL (<2.0)
[2023-03-02] MEDS: ACETAMINOPHEN TAB 325 MG TAB PO PRN (00:25)
[2023-03-02] MEDS: HEPARIN SODIUM,PORCINE 5,000 UNIT/ML 1 ML VIAL SQ SCH ×3 (00:26→15:53)
[2023-03-02] MEDS: CLINDAMYCIN 600 MG in DEXTROSE 5% IN WATER 50 ML IVPB SCH ×6 (04:19→21:02)
[2023-03-02 06:40] LABS: Basophils # (A) 0.1 k/uL (0-0.2); Basophils % (A) 1 %; Eosinophils # (A) 0.2 k/uL (0-0.7); Eosinophils % (A) 2 %; HCT 34.1 % (34.0-46.0); Lymphocytes # (A) 1.1 k/uL (1.0-4.8); Lymphocytes % (A) 9 %; MCH 27.4 pg (25.0-35.0); MCHC 32.8 g/dL (31.0-37.0); MCV 83.5 fL (80.0-100.0); Mean Platelet Volume 7.1; Monocytes # (A) 0.7 k/uL (0-1.0); Monocytes % (A) 6 %; Neutrophils # (A) 10.2 k/uL (1.3-7.7); Neutrophils % (A) 82 %; Platelet Count 336 k/uL (150-450); RBC 4.08 m/uL (3.80-5.40); RDW 12.7 % (11.5-15.5); WBC 12.5 k/uL (3.8-10.6)
[2023-03-02 06:55] LABS: HGB 11.2 gm/dL (11.4-16.0)
[2023-03-02 07:19] LABS: African American GFR (CKD) 34 (>60 ml/min/1.73 sqM); Anion Gap 10 mmol/L; Blood Urea Nitrogen 17 mg/dL (7-17); Calcium 8.5 mg/dL (8.4-10.2); Carbon Dioxide 31 mmol/L (22-30); Chloride 93 mmol/L (98-107); Glucose 111 mg/dL (74-99); Non-African American GFR(CKD) 30 (>60 ml/min/1.73 sqM); Potassium 4.9 mmol/L (3.5-5.1); Sodium 134 mmol/L (137-145)
[2023-03-02] MEDS: LACTOBACILLUS ACIDOPHILUS/PECT 1 EACH CAPSULE PO SCH ×2 (09:07→21:02)
--- NOTE | 2023-03-02 11:09 | P.NPCON ---
History of Present Illness - Reason for Consult acute renal failure - History of Present Illness Patient is a 28-year-old female with developmental delay, hypothyroidism and depression who was admitted with worsening redness noted over the right leg and some on the left leg 2. Patient was noted to have significant cellulitis and was maintained on vancomycin. Serum creatinine was 0.5 on initial admission and slowly increase to 2.2 yesterday. It is 2.19 today. Vancomycin level was 28.5 on 02/26/2023. Blood pressure was significantly low on initial admission. Bladder scan had shown about 400 mL of urine however no significant urine was obtained on straight catheterization. Ultrasound of the kidneys did not show any significant obstructive uropathy. Review of Systems as per HPI Past Medical History Past Medical History: Musculoskeletal Disorder Additional Past Medical History / Comment(s): developmentally delayed. cleft palate. Nystagmus. (L) pupil is larger than (R) pupil. Eczema History of Any Multi-Drug Resistant Organisms: None Reported Past Surgical History: Ear Surgery Additional Past Surgical History / Comment(s): scoliosis surgery and club foot, and hip related to scoliosis Past Anesthesia/Blood Transfusion Reactions: No Reported Reaction Past Psychological History: No Psychological Hx Reported Smoking Status: Never smoker Past Alcohol Use History: None Reported Past Drug Use History: None Reported - Past Family History Mother Family Medical History: Hypertension Medications and Allergies Home Medications Medication Instructions Recorded Confirmed Type oxyBUTYnin chloride [Ditropan XL] 10 mg PO HS@219902/13/18 02/23/23 History Furosemide [Lasix] 40 mg PO DAILY@1500 07/31/21 02/23/23 History Levothyroxine Sodium [Synthroid] 25 mcg PO DAILY@1500 07/31/21 02/23/23 History Potassium Chloride [Klor-Con M20] 20 meq PO DAILY@1500 07/31/21 02/23/23 History Ferrous Sulfate [Feosol] 325 mg PO HS@219902/23/23 02/23/23 History Hydrocortisone Cream 1 applic TOPICAL BID PRN 02/23/23 02/23/23 History [Hydrocortisone 2.5% Cream] Medroxyprogesterone Acetate 150 mg IM Q84D 02/23/23 02/23/23 History [Depo-Provera] Multivitamins, Thera [Multivitamin 1 tab PO HS@219902/23/23 02/23/23 History (formulary)] Sertraline [Zoloft] 100 mg PO DAILY@1500 02/23/23 02/23/23 History Allergies Allergy/AdvReac Type Severity Reaction Status Date / Time cephalexin [From Keflex] Allergy Rash/Hives Verified 02/23/23 12:10 Penicillins Allergy Rash/Hives Verified 02/23/23 12:16 sulfamethoxazole Allergy Rash/Hives Verified 02/23/23 12:10 [From Bactrim] trimethoprim [From Bactrim] Allergy Rash/Hives Verified 02/23/23 12:10 Physical Exam Vitals: Vital Signs Temp Pulse Resp BP Pulse Ox 03/02/23 07:55 98.2 F 69 19 141/83 99 03/02/23 00:20 99.1 F 87 18 127/84 92 L 03/01/23 14:00 98.3 F 61 17 126/77 94 L Intake and Output 03/01/23 03/02/23 03/02/23 22:59 06:59 14:59 Other: Voiding Method Toilet # Voids 1 Patient is sleeping but arousable. Comfortable Examination of the heart S1 and S2 Examination of the lungs bilateral breath sounds are heard Abdomen is soft nontender Examination of lower extremities shows no significant edema Results - Lab Results Most recent lab results Calcium 8.5 mg/dL (8.4-10.2) 03/02/23 06:04 Magnesium 2.0 mg/dL (1.5-2.4) 02/28/23 06:24 03/02/23 06:04 03/02/23 06:04 Assessment and Plan Assessment: 1. Acute kidney injury secondary to vancomycin toxicity and ATN secondary to hypotension and underlying infection. Oliguric. IV fluids were discontinued due to volume overload. Currently patient appears comfortable. I will check a chest x-ray. Continue off of vancomycin. 2. Lower extremity cellulitis, worse on the right side, currently improved from admission. 3. Developmental delay 4. Hypothyroidism Plan: Continue to avoid nephrotoxic agents May need to insert indwelling [place] catheter Avoid hypotension Check chest x-ray and consider IV hydration Thank you for the consultation. We will continue to follow the patient with you during her hospitalization.
--- NOTE | 2023-03-02 12:45 | XR ---
EXAMINATION TYPE: XR chest 1V DATE OF EXAM: 03/02/2023 COMPARISON: 02/24/2023 INDICATION: CHF TECHNIQUE: Single frontal view of the chest is obtained. FINDINGS: The heart size is normal. The pulmonary vasculature is normal. Bilateral lung infiltrates are present. A mass in the left base is not excluded. Consider pneumonia a lso within the differential. Continued follow-up is recommended. Mild infiltrates developing in the r ight middle lobe with partial silhouetting the right heart border. IMPRESSION: 1. Bibasilar increased densities. Correlate for pneumonia and atelectasis. Underlying mass on the lef t is not excluded. Follow-up is recommended
--- NOTE | 2023-03-02 13:29 | P.PN ---
Subjective Progress Note Date: 03/02/23 abnormalities, eczema, hypothyroidism, and depression. She presented to emergency department with a complaint of worsening redness over her feet and legs, left more than right. She was febrile and tachycardic. Labs revealing significant leukocytosis with WBC count of 30.2, ESR of 126, and CRP of 33.4. Liver profile also revealing transaminitis with AST of 79, ALT of 85, and alkaline phosphatase of 180. X-rays concerning for diffuse soft tissue edema. Patient was admitted for sepsis secondary to cellulitis with consult to infectious disease. She was started on IV antibiotics with vancomycin. Patient also with increasing oxygenation needs and a chest x-ray was completed showing large body habitus with marked hypoventilatory changes, cardiomegaly, and possible mild interstitial opacities concerning for pulmonary vascular congestion. Bilateral lower extremity Dopplers were completed and negative for DVTs. Echocardiogram was ordered secondary to concerns of right heart failure w ith possible pulmonary vascular congestion and elevated liver enzymes. Echocardiogram completed showing a preserved EF of 50-55% with no significant valvular or structural abnormalities reported. Respiratory function is normal or stable. She did develop acute kidney injury, now renal function is stable. Nephrology is consulted. Physical exam: Vital signs reviewed and stable. General: Nontoxic, no acute distress. Derm: Skin warm and dry, normal coloration for ethnicity. Left lower extremity with moderate erythema with blisters and drainage, dressing in place. Head: Atraumatic, normocephalic and symmetric. Eyes:No lid lag, and anicteric sclera Mouth: no lip lesions, mucus membranes moist Cardiovascular: regular rate and rhythm with normal S1S2, no murmur, positive posterior tibial pulses bilaterally, and cap refill < 2 seconds. Lungs: Respirations even, regular, and unlabored on room air. Lungs CTA bilaterally, no rhonchi, no rales, no wheezing, and no accessory muscle usage. Patient does have some upper respiratory noises Abdominal: soft, nontender to palpation, no guarding, no appreciable organomegaly Ext: Lower extremity contractures Neuro: Speech clear. Patient appropriate for developmental level, patient with history of developmental delay Psych: Appropriate and pleasant affect. Assessment and Plan of Care: Patient needs close monitoring, prognosis guarded Sepsis secondary to lower extremity cellulitis Severe leukocytosis secondary to above Acute hypoxic respiratory failure. Transaminitis, suspected reactive secondary to sepsis Acute kidney injury, stable Acute urinary retention -Blood cultures showing no growth to date -Continue IV vancomycin, monitor for renal toxicity, daily BMP -Continue IV clindamycin 600 mg every 8 hours -Infectious disease following -Echocardiogram completed showing EF of 50-55% with no significant valvular or structural abnormalities. -Inflammatory markers reviewed, ESR 126 and CRP 33.4. -Nephrology note reviewed, patient may need urology consult -Chest x-ray ordered -Bladder scan shows urinary retention -Ibuprofen and morphine discontinued, on oral [place] 5 as needed, monitor for sedation -Diuretics also discontinue Hypothyroidism Depression Developmental delay -Continue daily medication regimen with Synthroid 25 g daily, and sertraline 100 mg daily -Oxybutynin discontinued Data and imaging reviewed: WBC 12.5, hemoglobin 11.2, creatinine 2.19 Chest x-ray independently interpreted, shows bibasilar increased densities. CODE STATUS: Full code DVT prophylaxis: Heparin Anticipated discharge place: pending clinical course Anticipated discharge time: pending clinical course Objective - Vital Signs Vital signs: Vital Signs Temp 98.2 F 03/02/23 07:55 Pulse 69 03/02/23 07:55 Resp 19 03/02/23 07:55 BP 141/83 03/02/23 07:55 Pulse Ox 99 03/02/23 07:55 FiO2 Intake & Output 03/01/23 03/02/23 03/02/23 18:59 06:59 18:59 Intake Total 50 Balance 50 Intake: Intake, IV Titration 50 Amount Clindamycin 600 mg In 50 Dextrose 5% in Water 50 ml @ 50 mls/hr IVPB Q8H [facility] Rx#:[id number] Other: Voiding Method Toilet # Voids 1 1 - Labs CBC & Chem 7: 03/02/23 06:04 03/02/23 06:04 Labs: Abnormal Lab Results - Last 24 Hours (Table) 03/02/23 03/02/23 Range/Units 06:04 06:04 WBC 12.5 H (3.8-10.6) k/uL Hgb 11.2 L D (11.4-16.0) gm/dL Neutrophils # 10.2 H (1.3-7.7) k/uL Sodium 134 L (137-145) mmol/L Chloride 93 L (98-107) mmol/L Carbon Dioxide 31 H (22-30) mmol/L Creatinine 2.19 H (0.52-1.04) mg/dL Glucose 111 H (74-99) mg/dL
[2023-03-02] MEDS: LEVOTHYROXINE 25 MCG TAB PO SCH (15:53)
[2023-03-02] MEDS: SERTRALINE 100 MG TAB PO SCH (15:53)
[2023-03-03] MEDS: HEPARIN SODIUM,PORCINE 5,000 UNIT/ML 1 ML VIAL SQ SCH ×4 (00:05→23:34)
[2023-03-03] MEDS: CLINDAMYCIN 600 MG in DEXTROSE 5% IN WATER 50 ML IVPB SCH ×4 (03:31→13:14)
[2023-03-03] MEDS: LACTOBACILLUS ACIDOPHILUS/PECT 1 EACH CAPSULE PO SCH ×2 (08:35→21:40)
[2023-03-03 09:15] LABS: Basophils % (A) 0 %; Eosinophils # (A) 0.2 k/uL (0-0.7); Eosinophils % (A) 2 %; HCT 34.5 % (34.0-46.0); HGB 11.1 gm/dL (11.4-16.0); Lymphocytes # (A) 1.2 k/uL (1.0-4.8); Lymphocytes % (A) 10 %; MCHC 32.2 g/dL (31.0-37.0); MCV 83.9 fL (80.0-100.0); Mean Platelet Volume 7.1; Monocytes # (A) 0.6 k/uL (0-1.0); Monocytes % (A) 5 %; Neutrophils # (A) 9.2 k/uL (1.3-7.7); Neutrophils % (A) 81 %; Platelet Count 368 k/uL (150-450); RBC 4.11 m/uL (3.80-5.40); RDW 12.6 % (11.5-15.5); WBC 11.3 k/uL (3.8-10.6)
[2023-03-03 09:33] LABS: African American GFR (CKD) 36 (>60 ml/min/1.73 sqM); Anion Gap 5 mmol/L; Blood Urea Nitrogen 13 mg/dL (7-17); Calcium 9.1 mg/dL (8.4-10.2); Carbon Dioxide 34 mmol/L (22-30); Chloride 95 mmol/L (98-107); Glucose 104 mg/dL (74-99); Magnesium 2.3 mg/dL (1.6-2.3); Non-African American GFR(CKD) 32 (>60 ml/min/1.73 sqM); Potassium 5.5 mmol/L (3.5-5.1); Sodium 134 mmol/L (137-145)
[2023-03-03] MEDS ORDERED: SODIUM ZIRCONIUM CYCLOSILICATE 10 GM PACKET PO ONE (10:00)
--- NOTE | 2023-03-03 11:43 | P.PN ---
Subjective Patient is seen for follow-up for acute kidney injury. Mostly associated with vancomycin toxicity. Potassium is elevated and there is concern for possible urine retention. Nursing staff have not been able to insert [place] catheter. Serum creatinine staying at about 2.0 mg/dL. Patient's mother is present at bedside. No significant complaints today. She has been voiding. Objective - Vital Signs Vital signs: Vital Signs Temp 98.6 F 03/03/23 07:49 Pulse 56 L 03/03/23 07:49 Resp 22 03/03/23 07:49 BP 123/64 03/03/23 07:49 Pulse Ox 99 03/03/23 07:49 FiO2 Intake & Output 03/02/23 03/03/23 03/03/23 18:59 06:59 18:59 Output Total [id number] Balance -[id number] Output: Urine 1350 Post Void Residual [id number] Other: Voiding Method Toilet # Voids 1 5 - Exam Developmental delay Patient is sleeping but arousable. Comfortable Examination of the heart S1 and S2 Examination of the lungs bilateral breath sounds are heard Abdomen is soft nontender Examination of lower extremities shows no significant edema - Labs CBC & Chem 7: 03/03/23 08:49 03/03/23 08:09 Labs: Abnormal Lab Results - Last 24 Hours (Table) 03/03/23 03/03/23 Range/Units 08:09 08:49 WBC 11.3 H (3.8-10.6) k/uL Hgb 11.1 L (11.4-16.0) gm/dL Neutrophils # 9.2 H (1.3-7.7) k/uL Sodium 134 L (137-145) mmol/L Potassium 5.5 H (3.5-5.1) mmol/L Chloride 95 L (98-107) mmol/L Carbon Dioxide 34 H (22-30) mmol/L Creatinine 2.09 H (0.52-1.04) mg/dL Glucose 104 H (74-99) mg/dL Assessment and Plan Assessment: 1. Acute kidney injury secondary to vancomycin toxicity and ATN secondary to hypotension and underlying infection. ? Oliguric. IV fluids were discontinued due to volume overload. Currently patient appears comfortable. . Continue off of vancomycin. Possible urine retention 2. Lower extremity cellulitis, worse on the right side, currently improved from admission. 3. Developmental delay 4. Hypothyroidism 5. Hyperkalemia associated with acute kidney injury and possible urine retention. Consult urology for [place] catheter placement for about 24-48 hours. Plan: Place [place] catheter for 24-48 hours LOERICK X1 Repeat labs in a.m. Continue to avoid nephrotoxic agents.
--- NOTE | 2023-03-03 12:29 | P.PN ---
Subjective Progress Note Date: 03/03/23 Hospital course: Patient is a very pleasant 20-year-old female with a past medical history of d evelopmental delay, multiple musculoskeletal abnormalities, eczema, hypothyroidism, and depression. She presented to emergency department with a complaint of worsening redness over her feet and legs, left more than right. She was febrile and tachycardic. Labs revealing significant leukocytosis with WBC count of 30.2, ESR of 126, and CRP of 33.4. Liver profile also revealing transaminitis with AST of 79, ALT of 85, and alkaline phosphatase of 180. X- rays concerning for diffuse soft tissue edema. Patient was admitted for sepsis secondary to cellulitis with consult to infectious disease. She was started on IV antibiotics with vancomycin. Patient also with increasing oxygenation needs and a chest x-ray was completed showing large body habitus with marked hypoventilatory changes, cardiomegaly, and possible mild interstitial opacities concerning for pulmonary vascular congestion. Bilateral lower extremity Dopplers were completed and negative for DVTs. Echocardiogram was ordered secon caty to concerns of right heart failure with possible pulmonary vascular congestion and elevated liver enzymes. Echocardiogram completed showing a preserved EF of 50-55% with no significant valvular or structural abnormalities reported. Respiratory function is normal or stable. She did develop acute kidney injury, now renal function is stable. Nephrology is consulted. Physical exam: Vital signs reviewed and stable. General: Nontoxic, no acute distress. Derm: Skin warm and dry, normal coloration for ethnicity. Left lower extremity with moderate erythema with blisters and drainage, dressing in place. Head: Atraumatic, normocephalic and symmetric. Eyes:No lid lag, and anicteric sclera Mouth: no lip lesions, mucus membranes moist Cardiovascular: regular rate and rhythm with normal S1S2, no murmur, positive posterior tibial pulses bilaterally, and cap refill < 2 seconds. Lungs: Respirations even, regular, and unlabored on room air. Lungs CTA bilaterally, no rhonchi, no rales, no wheezing, and no accessory muscle usage. Patient does have some upper respiratory noises Abdominal: soft, nontender to palpation, no guarding, no appreciable organomegaly Ext: Lower extremity contractures Neuro: Speech clear. Patient appropriate for developmental level, patient with history of developmental delay Psych: Appropriate and pleasant affect. Assessment and Plan of Care: Patient needs close monitoring, prognosis guarded Sepsis secondary to lower extremity cellulitis Severe leukocytosis secondary to above Acute hypoxic respiratory failure. Transaminitis, suspected reactive secondary to sepsis Acute kidney injury, stable Hyperkalemia Acute urinary retention -Continue IV vancomycin pharmacy to dose, monitor for renal toxicity, daily BMP -Continue IV clindamycin 600 mg every 8 hours -Infectious disease following -Nephrology note reviewed, urology consult for [place] catheter placement for 24- 48 hours -lokelma 10 g x 1 -repeat BMP tomorrow Hypothyroidism Depression Developmental delay -Continue daily medication regimen with Synthroid 25 g daily, and sertraline 100 mg daily -Oxybutynin discontinued Data and imaging reviewed: WBC 11.3, hemoglobin 11.1, sodium 134, creatinine 2.09, potassium 5.5 Chest x-ray independently interpreted, shows bibasilar increased densities. CODE STATUS: Full code DVT prophylaxis: Heparin Anticipated discharge place: pending clinical course Anticipated discharge time: pending clinical course Objective - Vital Signs Vital signs: Vital Signs Temp 98.6 F 03/03/23 07:49 Pulse 56 L 03/03/23 07:49 Resp 22 03/03/23 07:49 BP 123/64 03/03/23 07:49 Pulse Ox 99 03/03/23 07:49 FiO2 Intake & Output 03/02/23 03/03/23 03/03/23 18:59 06:59 18:59 Output Total [id number] Balance -[id number] Output: Urine 1350 Post Void Residual [id number] Other: Voiding Method Toilet # Voids 1 5 - Labs CBC & Chem 7: 03/03/23 08:49 03/03/23 08:09 Labs: Abnormal Lab Results - Last 24 Hours (Table) 03/03/23 03/03/23 Range/Units 08:09 08:49 WBC 11.3 H (3.8-10.6) k/uL Hgb 11.1 L (11.4-16.0) gm/dL Neutrophils # 9.2 H (1.3-7.7) k/uL Sodium 134 L (137-145) mmol/L Potassium 5.5 H (3.5-5.1) mmol/L Chloride 95 L (98-107) mmol/L Carbon Dioxide 34 H (22-30) mmol/L Creatinine 2.09 H (0.52-1.04) mg/dL Glucose 104 H (74-99) mg/dL
--- NOTE | 2023-03-03 12:59 | P.GSCN ---
History of Present Illness Consult date: 03/03/23 History of present illness: 28 yo mentally andphysically handicapped female brought to the hospital with cellulitis and sepsis. She was found to have arf/crf. Nephrology ordered a renal us that didnt show hydro. Her cr is 2 the nursing staff was unable to place a catheter for i&o and 24 hour collection We have been asked to do so. the history is from the mother. She is wet in the pm there are no other urinary issues. there havent been utis, hematuria ior other urological issues She cannot communicate the "pvr" was 408 Review of Systems ROS unobtainable: due to mental status Past Medical History Past Medical History: Musculoskeletal Disorder Additional Past Medical History / Comment(s): developmentally delayed. cleft palate. Nystagmus. (L) pupil is larger than (R) pupil. Eczema History of Any Multi-Drug Resistant Organisms: None Reported Past Surgical History: Ear Surgery Additional Past Surgical History / Comment(s): scoliosis surgery and club foot, and hip related to scoliosis Past Anesthesia/Blood Transfusion Reactions: No Reported Reaction Past Psychological History: No Psychological Hx Reported Smoking Status: Never smoker Past Alcohol Use History: None Reported Past Drug Use History: None Reported - Past Family History Mother Family Medical History: Hypertension Medications and Allergies Home Medications Medication Instructions Recorded Confirmed Type oxyBUTYnin chloride [Ditropan XL] 10 mg PO HS@219902/13/18 02/23/23 History Furosemide [Lasix] 40 mg PO DAILY@149907/31/21 02/23/23 History Levothyroxine Sodium [Synthroid] 25 mcg PO DAILY@149907/31/21 02/23/23 History Potassium Chloride [Klor-Con M20] 20 meq PO DAILY@149907/31/21 02/23/23 History Ferrous Sulfate [Feosol] 325 mg PO HS@219902/23/23 02/23/23 History Hydrocortisone Cream 1 applic TOPICAL BID PRN 02/23/23 02/23/23 History [Hydrocortisone 2.5% Cream] Medroxyprogesterone Acetate 150 mg IM Q84D 02/23/23 02/23/23 History [Depo-Provera] Multivitamins, Thera [Multivitamin 1 tab PO HS@219902/23/23 02/23/23 History (formulary)] Sertraline [Zoloft] 100 mg PO DAILY@1500 02/23/23 02/23/23 History Allergies Allergy/AdvReac Type Severity Reaction Status Date / Time cephalexin [From Keflex] Allergy Rash/Hives Verified 02/23/23 12:10 Penicillins Allergy Rash/Hives Verified 02/23/23 12:16 sulfamethoxazole Allergy Rash/Hives Verified 02/23/23 12:10 [From Bactrim] trimethoprim [From Bactrim] Allergy Rash/Hives Verified 02/23/23 12:10 Surgical - Exam Vital Signs Temp Pulse Resp BP Pulse Ox 103.0 F H 147 H 22 100/63 98 02/23/23 00:22 02/23/23 00:22 02/23/23 00:22 02/23/23 00:22 02/23/23 00:22 - General well developed, well nourished, obese - ENT no hearing loss - Respiratory normal respiratory effort - Cardiovascular Rhythm: regular - Abdomen Abdomen: non tender - Neurologic cannot communicate other Results - Labs 03/03/23 08:49 03/03/23 08:09 Abnormal Lab Results - Last 24 Hours (Table) 03/03/23 03/03/23 Range/Units 08:09 08:49 WBC 11.3 H (3.8-10.6) k/uL Hgb 11.1 L (11.4-16.0) gm/dL Neutrophils # 9.2 H (1.3-7.7) k/uL Sodium 134 L (137-145) mmol/L Potassium 5.5 H (3.5-5.1) mmol/L Chloride 95 L (98-107) mmol/L Carbon Dioxide 34 H (22-30) mmol/L Creatinine 2.09 H (0.52-1.04) mg/dL Glucose 104 H (74-99) mg/dL Diabetes panel 03/03/23 Range/Units 08:09 Sodium 134 L (137-145) mmol/L Potassium 5.5 H (3.5-5.1) mmol/L Chloride 95 L (98-107) mmol/L Carbon Dioxide 34 H (22-30) mmol/L BUN 13 (7-17) mg/dL Creatinine 2.09 H (0.52-1.04) mg/dL Glucose 104 H (74-99) mg/dL Calcium 9.1 (8.4-10.2) mg/dL Calcium panel 03/03/23 Range/Units 08:09 Calcium 9.1 (8.4-10.2) mg/dL Pituitary panel 03/03/23 Range/Units 08:09 Sodium 134 L (137-145) mmol/L Potassium 5.5 H (3.5-5.1) mmol/L Chloride 95 L (98-107) mmol/L Carbon Dioxide 34 H (22-30) mmol/L BUN 13 (7-17) mg/dL Creatinine 2.09 H (0.52-1.04) mg/dL Glucose 104 H (74-99) mg/dL Calcium 9.1 (8.4-10.2) mg/dL Adrenal panel 03/03/23 Range/Units 08:09 Sodium 134 L (137-145) mmol/L Potassium 5.5 H (3.5-5.1) mmol/L Chloride 95 L (98-107) mmol/L Carbon Dioxide 34 H (22-30) mmol/L BUN 13 (7-17) mg/dL Creatinine 2.09 H (0.52-1.04) mg/dL Glucose 104 H (74-99) mg/dL Calcium 9.1 (8.4-10.2) mg/dL Assessment and Plan Assessment: Impression: ARF/CRF with the need for urine monitoring Inability of the nurses to pass a catheter. Plan: cath placement
--- NOTE | 2023-03-03 13:04 | P.PCN ---
Date of Procedure: 03/03/23 Preoperative Diagnosis: ARF/CRF, ? urine retention Postoperative Diagnosis: ARF?CRF Procedure(s) Performed: difficult cath Anesthesia: none Surgeon: Lucius Abraham Indications for Procedure: the patient is mentally handicappe She is in the hospital with cellulitis, sepsis and arf/crf We have been asked to place a catheter. Description of Procedure: the patient is prepped and draped sterilely Her mother is next to her as she is scared. I tried a 16 fr bhatt but this made her uncomfortable and I was unsure that I was in the bladder. I then passed a 14 fr coude tip with urine return i then irrigated it with a gena syring to make sure placement is correct and it irrigates freely
[2023-03-03] MEDS: LEVOTHYROXINE 25 MCG TAB PO SCH (16:16)
[2023-03-03] MEDS: SERTRALINE 100 MG TAB PO SCH (16:16)
--- NOTE | 2023-03-03 17:06 | P.PN ---
Subjective Progress Note Date: 03/02/23 Principal diagnosis: Reason for follow-up with sepsis and left lower extremity cellulitis Patient is a 28-year-old female with a past medical history significant for developmental delay, patient was brought into the hospital by her mother concerning for a fever, patient was noticed to have a sepsis and left lower extremity cellulitis did have multiple antibiotic allergies. On today's evaluation that is 03/02/2023 patient remains to be afebrile , patient is breathing comfortably on room air, the patient left leg swelling redness and has decreased in intensity per the mother patient has had cannot provide any history, patient is making good urine per the mother at the bedside no vomiting or diarrhea has been reported Patient white count is down to 12.5, creatinine slightly up to 2.19 Objective - Vital Signs Vital signs: Vital Signs Temp 98.2 F 03/02/23 07:55 Pulse 69 03/02/23 07:55 Resp 19 03/02/23 07:55 BP 141/83 03/02/23 07:55 Pulse Ox 99 03/02/23 07:55 FiO2 Intake & Output 03/01/23 03/02/23 03/02/23 18:59 06:59 18:59 Intake Total 50 Balance 50 Intake: Intake, IV Titration 50 Amount Clindamycin 600 mg In 50 Dextrose 5% in Water 50 ml @ 50 mls/hr IVPB Q8H [facility] Rx#:[id number] Other: Voiding Method Toilet # Voids 1 1 - Exam GENERAL DESCRIPTION: Middle-age lying in bed in no distress RESPIRATORY SYSTEM: Unlabored breathing , decreased breath sounds at bases HEART: S1 S2 regular rate and rhythm , ABDOMEN: Soft , no tenderness EXTREMITIES: Left lower extremity swelling redness has decreased in intensity - Labs CBC & Chem 7: 03/02/23 06:04 03/02/23 06:04 Labs: Abnormal Lab Results - Last 24 Hours (Table) 03/01/23 03/01/23 03/02/23 Range/Units 06:16 06:16 06:04 WBC 16.41 H 12.5 H (4.50-10.00) X 10*3/uL RBC 3.62 L (4.10-5.20) X 10*6/uL Hgb 9.7 L 11.2 L D (12.0-15.0) g/dL Hct 30.1 L (37.2-46.3) % MCH 26.8 L (27.0-32.0) pg MPV 9.2 L (9.5-12.2) FL Neutrophils # 10.2 H (1.3-7.7) k/uL Basophils # (Manual) 0.16 H (0.00-0.10) X 10*3/uL Sodium (137-145) mmol/L Chloride (98-107) mmol/L Carbon Dioxide (22-30) mmol/L Creatinine 2.2 H (0.6-1.5) mg/dL Est GFR (CKD-EPI) 31 L (>=60) BUN/Creatinine Ratio 6.73 L (12.00-20.00) Ratio Glucose (74-99) mg/dL Calcium 8.6 L (8.7-10.3) mg/dL C-Reactive Protein 7.30 H (0.00-0.80) mg/dL 03/02/23 Range/Units 06:04 WBC (4.50-10.00) X 10*3/uL RBC (4.10-5.20) X 10*6/uL Hgb (12.0-15.0) g/dL Hct (37.2-46.3) % MCH (27.0-32.0) pg MPV (9.5-12.2) FL Neutrophils # (1.3-7.7) k/uL Basophils # (Manual) (0.00-0.10) X 10*3/uL Sodium 134 L (137-145) mmol/L Chloride 93 L (98-107) mmol/L Carbon Dioxide 31 H (22-30) mmol/L Creatinine 2.19 H (0.6-1.5) mg/dL Est GFR (CKD-EPI) (>=60) BUN/Creatinine Ratio (12.00-20.00) Ratio Glucose 111 H (74-99) mg/dL Calcium (8.7-10.3) mg/dL C-Reactive Protein (0.00-0.80) mg/dL Assessment and Plan (1) Allergy to multiple antibiotics Current Visit: Yes Status: Acute Code(s): Z88.1 - ALLERGY STATUS TO OTHER ANTIBIOTIC AGENTS SNOMED Code(s): 221609821 (2) Left leg cellulitis Current Visit: Yes Status: Acute Code(s): L03.116 - CELLULITIS OF LEFT LOWER LIMB SNOMED Code(s): 49840401412477098 (3) Leukocytosis Current Visit: Yes Status: Acute Code(s): D72.829 - ELEVATED WHITE BLOOD CELL COUNT, UNSPECIFIED SNOMED Code(s): 341785340 Plan: 1patient was in the hospital with sepsis in this patient who did have a fever tachycardia elevated white count source is acute left lower extremity cellulitis with rapid progression of the cellulitis more likely streptococcal disease 2patient with multiple antibiotic ALLERGIES that would limit the number of antibiotic safe to use 3patient did have some clinical improvement and resolution of the fever still have swelling to the left lower extremity we will apply Jarred wrap to keep the swelling down 4- patient did have clinical improvement in the left leg redness and the white count is trending down to continue with the clindamycin along with the probiotics nephrology consulted for elevated creatinine Dictation was produced using [employer] dictation software. please excuse any grammatical, word or spelling errors. Time with Patient: Less than 30
--- NOTE | 2023-03-03 17:08 | P.PN ---
Subjective Progress Note Date: 03/03/23 Principal diagnosis: Reason for follow-up with sepsis and left lower extremity cellulitis Patient is a 28-year-old female with a past medical history significant for developmental delay, patient was brought into the hospital by her mother concerning for a fever, patient was noticed to have a sepsis and left lower extremity cellulitis did have multiple antibiotic allergies. On today's evaluation that is 03/03/2023 patient continues to be afebrile , patient is breathing comfortably on room air, the patient left leg swelling redness and has decreased in intensity, did not have any drainage no nausea no vomiting did have some diarrhea also seen to have problem with urinary retention requiring [place] catheter placement Patient white count is down to 11.3, creatinine slightly up to 2.09 Objective - Vital Signs Vital signs: Vital Signs Temp 98.0 F 03/03/23 14:00 Pulse 64 03/03/23 14:00 Resp 20 03/03/23 14:00 BP 136/74 03/03/23 14:00 Pulse Ox 99 03/03/23 14:00 FiO2 Intake & Output 03/02/23 03/03/23 03/03/23 18:59 06:59 18:59 Output Total [id number] Balance -20190724 Output: Urine 1350 Post Void Residual [id number] Other: Voiding Method Toilet # Voids 1 5 - Exam GENERAL DESCRIPTION: Middle-age lying in bed in no distress RESPIRATORY SYSTEM: Unlabored breathing , decreased breath sounds at bases HEART: S1 S2 regular rate and rhythm , ABDOMEN: Soft , no tenderness EXTREMITIES: Left lower extremity swelling redness has decreased in intensity - Labs CBC & Chem 7: 03/03/23 08:49 03/03/23 08:09 Labs: Abnormal Lab Results - Last 24 Hours (Table) 03/03/23 03/03/23 Range/Units 08:09 08:49 WBC 11.3 H (3.8-10.6) k/uL Hgb 11.1 L (11.4-16.0) gm/dL Neutrophils # 9.2 H (1.3-7.7) k/uL Sodium 134 L (137-145) mmol/L Potassium 5.5 H (3.5-5.1) mmol/L Chloride 95 L (98-107) mmol/L Carbon Dioxide 34 H (22-30) mmol/L Creatinine 2.09 H (0.52-1.04) mg/dL Glucose 104 H (74-99) mg/dL Assessment and Plan (1) Allergy to multiple antibiotics Current Visit: Yes Status: Acute Code(s): Z88.1 - ALLERGY STATUS TO OTHER ANTIBIOTIC AGENTS SNOMED Code(s): 208264912 (2) Left leg cellulitis Current Visit: Yes Status: Acute Code(s): L03.116 - CELLULITIS OF LEFT LOWER LIMB SNOMED Code(s): 93124830319166830 (3) Leukocytosis Current Visit: Yes Status: Acute Code(s): D72.829 - ELEVATED WHITE BLOOD CELL COUNT, UNSPECIFIED SNOMED Code(s): 118346415 Plan: 1patient was in the hospital with sepsis in this patient who did have a fever tachycardia elevated white count source is acute left lower extremity cellulitis with rapid progression of the cellulitis more likely streptococcal disease 2patient with multiple antibiotic ALLERGIES that would limit the number of antibiotic safe to use 3patient did have some clinical improvement and resolution of the fever and the patient white count is down to 11.3 4-we will discontinue IV clindamycin switch over to oral clindamycin for short course continue the probiotics and advised to increase yogurt intake Mother at the bedside questions were answered Dictation was produced using [employer] dictation software. please excuse any grammatical, word or spelling errors. Time with Patient: Less than 30
[2023-03-03] MEDS: CLINDAMYCIN 150 MG CAP PO SCH (21:40)
[2023-03-04] MEDS: LACTOBACILLUS ACIDOPHILUS/PECT 1 EACH CAPSULE PO SCH ×2 (08:59→21:36)
[2023-03-04] MEDS: HEPARIN SODIUM,PORCINE 5,000 UNIT/ML 1 ML VIAL SQ SCH ×2 (08:59→15:26)
[2023-03-04] MEDS: CLINDAMYCIN 150 MG CAP PO SCH ×3 (08:59→21:36)
[2023-03-04 09:26] LABS: Basophils # (A) 0.1 k/uL (0-0.2); Basophils % (A) 1 %; Eosinophils # (A) 0.2 k/uL (0-0.7); Eosinophils % (A) 1 %; HCT 36.6 % (34.0-46.0); HGB 11.6 gm/dL (11.4-16.0); Hypochromasia Slight; Lymphocytes # (A) 1.1 k/uL (1.0-4.8); Lymphocytes % (A) 9 %; MCHC 31.7 g/dL (31.0-37.0); MCV 85.1 fL (80.0-100.0); Mean Platelet Volume 6.7; Monocytes # (A) 0.6 k/uL (0-1.0); Monocytes % (A) 5 %; Neutrophils % (A) 83 %; Platelet Count 396 k/uL (150-450); RDW 12.6 % (11.5-15.5); WBC 12.1 k/uL (3.8-10.6)
[2023-03-04 11:15] LABS: African American GFR (CKD) 41 (>60 ml/min/1.73 sqM); Anion Gap 7 mmol/L; Blood Urea Nitrogen 13 mg/dL (7-17); Calcium 9.2 mg/dL (8.4-10.2); Carbon Dioxide 29 mmol/L (22-30); Chloride 99 mmol/L (98-107); Glucose 104 mg/dL (74-99); Non-African American GFR(CKD) 36 (>60 ml/min/1.73 sqM); Potassium 5.4 mmol/L (3.5-5.1); Sodium 135 mmol/L (137-145)
[2023-03-04] MEDS ORDERED: SODIUM ZIRCONIUM CYCLOSILICATE 10 GM PACKET PO ONE ×2 (13:51→15:33)
--- NOTE | 2023-03-04 13:55 | P.PN ---
Subjective Progress Note Date: 03/04/23 Hospital course: Patient is a very pleasant 20-year-old female with a past medical history of developmental delay, multiple musculoskeletal abnormalities, eczema, hypothyroidism, and depression. She presented to emergency department with a complaint of worsening redness over her feet and legs, left more than right. She was febrile and tachycardic. Labs revealing significant leukocytosis with WBC count of 30.2, ESR of 126, and CRP of 33.4. Liver profile also revealing transaminitis with AST of 79, ALT of 85, and alkaline phosphatase of 180. X- rays concerning for diffuse soft tissue edema. Patient was admitted for sepsis secondary to cellulitis with consult to infectious disease. She was started on IV antibiotics with vancomycin. Patient also with increasing oxygenation needs and a chest x-ray was completed showing large body habitus with marked hypoventilatory changes, cardiomegaly, and possible mild interstitial opacities concerning for pulmonary vascular congestion. Bilateral lower extremity Dopplers were completed and negative for DVTs. Echocardiogram was ordered secondary to concerns of right heart failure with possible pulmonary vascular congestion and elevated liver enzymes. Echocardiogram completed showing a preserved EF of 50-55% with no significant valvular or structural abnormalities reported. Respiratory function is normal or stable. She did develop acute kidney injury, now renal function is stable. Nephrology is consulted. Also had urinary, urology was consulted for [place] catheter placement. Patient seen and examined at bedside. No acute events overnight. O[place]fe catheter in place. Physical exam: Vital signs reviewed and stable. General: Nontoxic, no acute distress. Derm: Skin warm and dry, normal coloration for ethnicity. Left lower extremity with minimal erythema with blisters with crusting, no drainage Head: Atraumatic, normocephalic and symmetric. Eyes:No lid lag, and anicteric sclera Mouth: no lip lesions, mucus membranes moist Cardiovascular: regular rate and rhythm with normal S1S2, no murmur, positive posterior tibial pulses bilaterally, and cap refill < 2 seconds. Lungs: Respirations even, regular, and unlabored on room air. Lungs CTA bilaterally, no rhonchi, no rales, no wheezing, and no accessory muscle usage. Patient does have some upper respiratory noises Abdominal: soft, nontender to palpation, no guarding, no appreciable organomegaly Ext: Lower extremity contractures Neuro: Speech clear. Patient appropriate for developmental level, patient with history of developmental delay Psych: Appropriate and pleasant affect. Assessment and Plan of Care: Patient needs close monitoring, prognosis guarded Sepsis secondary to lower extremity cellulitis, resolving Severe leukocytosis secondary to above , resolving Acute hypoxic respiratory failure, resolving Transaminitis, suspected reactive secondary to sepsis Acute kidney injury, stable Hyperkalemia Acute urinary retention -Vancomycin discontinued due 2 acute kidney injury -Infectious disease following, patient currently on clindamycin 300 3 times a day, also on probiotics -Nephrology following, urology was consulted, she is now status post [place] catheter -oxybutynin discontinued -lokelma 10 g x 1 ordered for today -repeat BMP tomorrow Hypothyroidism Depression Developmental delay -Continue daily medication regimen with Synthroid 25 g daily, and sertraline 100 mg daily Data and imaging reviewed: WBC 12.1, hemoglobin 11.6, potassium 5.4, creatinine 1.89 CODE STATUS: Full code DVT prophylaxis: Heparin Anticipated discharge place: Home Anticipated discharge time: 1-2 days Objective - Vital Signs Vital signs: Vital Signs Temp 97.9 F 03/04/23 08:00 Pulse 80 03/04/23 08:59 Resp 18 03/04/23 08:59 BP 139/78 03/04/23 08:00 Pulse Ox 96 03/04/23 08:00 FiO2 Intake & Output 03/03/23 03/04/23 03/04/23 18:59 06:59 18:59 Other: Voiding Method Indwelling Catheter Indwelling Catheter # Voids 4 2 # Bowel Movements 1 - Labs CBC & Chem 7: 03/04/23 09:01 03/04/23 09:01 Labs: Abnormal Lab Results - Last 24 Hours (Table) 03/01/23 03/04/23 03/04/23 Range/Units 06:16 09:01 09:01 WBC 12.1 H (3.8-10.6) k/uL Neutrophils # 10.0 H (1.3-7.7) k/uL Neutrophils # (Manual) 13.95 H (1.80-7.70) X 10*3/uL Sodium 135 L (137-145) mmol/L Potassium 5.4 H (3.5-5.1) mmol/L Creatinine 1.89 H (0.52-1.04) mg/dL Glucose 104 H (74-99) mg/dL
[2023-03-04] MEDS: LEVOTHYROXINE 25 MCG TAB PO SCH (15:26)
[2023-03-04] MEDS: SERTRALINE 100 MG TAB PO SCH (15:26)
--- NOTE | 2023-03-04 15:33 | P.PN ---
Subjective Patient is seen in follow-up for acute kidney injury. Renal function little better. Off IV fluids. Oral intake good. Family present at bedside. Vital signs are stable. General: No acute distress. HEENT: Head exam is unremarkable. LUNGS: No audible rhonchi or wheezes. HEART: Rate and Rhythm are regular. ABDOMEN: No distention. EXTREMITITES: No edema. Objective - Vital Signs Vital signs: Vital Signs Temp 97.9 F 03/04/23 14:30 Pulse 65 03/04/23 14:30 Resp 14 03/04/23 14:30 BP 143/89 03/04/23 14:30 Pulse Ox 93 L 03/04/23 14:30 FiO2 Intake & Output 03/03/23 03/04/23 03/04/23 18:59 06:59 18:59 Other: Voiding Method Indwelling Catheter Indwelling Catheter # Voids 4 2 # Bowel Movements 1 - Labs CBC & Chem 7: 03/04/23 09:01 03/04/23 09:01 Labs: Abnormal Lab Results - Last 24 Hours (Table) 03/01/23 03/04/23 03/04/23 Range/Units 06:16 09:01 09:01 WBC 12.1 H (3.8-10.6) k/uL Neutrophils # 10.0 H (1.3-7.7) k/uL Neutrophils # (Manual) 13.95 H (1.80-7.70) X 10*3/uL Sodium 135 L (137-145) mmol/L Potassium 5.4 H (3.5-5.1) mmol/L Creatinine 1.89 H (0.52-1.04) mg/dL Glucose 104 H (74-99) mg/dL Assessment and Plan Plan: Assessment: 1. Acute kidney injury secondary to ATN secondary to infection and vancomycin toxicity. Creatinine peaked at 2.19 this admission and is 1.89 today. No hydronephrosis noted on kidney ultrasound. Right kidney atrophic. UA benign. 2. Urinary retention. [place] catheter placed by urology. Nonoliguric. 3. Left leg cellulitis on antibiotics. ID following. 4. Hyperkalemia secondary to acute kidney injury and urinary retention. Stable. Plan: Maintain [place] catheter for now. Encouraged oral intake. Lokelma 10 g once today.
[2023-03-05] MEDS: HEPARIN SODIUM,PORCINE 5,000 UNIT/ML 1 ML VIAL SQ SCH ×3 (00:29→16:31)
[2023-03-05 08:27] LABS: Basophils # (A) 0.1 k/uL (0-0.2); Basophils % (A) 0 %; Eosinophils # (A) 0.2 k/uL (0-0.7); Eosinophils % (A) 2 %; HCT 37.3 % (34.0-46.0); Lymphocytes # (A) 1.7 k/uL (1.0-4.8); Lymphocytes % (A) 12 %; MCH 26.9 pg (25.0-35.0); MCHC 32.1 g/dL (31.0-37.0); Mean Platelet Volume 6.7; Monocytes # (A) 0.8 k/uL (0-1.0); Monocytes % (A) 5 %; Neutrophils # (A) 11.1 k/uL (1.3-7.7); Neutrophils % (A) 79 %; Platelet Count 421 k/uL (150-450); RBC 4.44 m/uL (3.80-5.40); RDW 12.5 % (11.5-15.5)
[2023-03-05 08:37] LABS: African American GFR (CKD) 45 (>60 ml/min/1.73 sqM); Anion Gap 4 mmol/L; Blood Urea Nitrogen 17 mg/dL (7-17); Calcium 9.8 mg/dL (8.4-10.2); Carbon Dioxide 34 mmol/L (22-30); Chloride 95 mmol/L (98-107); Glucose 113 mg/dL (74-99); Magnesium 2.1 mg/dL (1.6-2.3); Non-African American GFR(CKD) 39 (>60 ml/min/1.73 sqM); Potassium 5.1 mmol/L (3.5-5.1); Sodium 133 mmol/L (137-145)
[2023-03-05] MEDS: LACTOBACILLUS ACIDOPHILUS/PECT 1 EACH CAPSULE PO SCH ×2 (08:37→21:42)
[2023-03-05] MEDS: CLINDAMYCIN 150 MG CAP PO SCH ×3 (08:37→21:42)
[2023-03-05] MEDS ORDERED: SODIUM ZIRCONIUM CYCLOSILICATE 10 GM PACKET PO ONE (12:15)
--- NOTE | 2023-03-05 12:15 | P.PN ---
Subjective Patient is seen in follow-up for acute kidney injury. Renal function little better. Off IV fluids. Oral intake good. Has Okeefe catheter. Nonoliguric. Family present at bedside. Vital signs are stable. General: No acute distress. HEENT: Head exam is unremarkable. LUNGS: No audible rhonchi or wheezes. HEART: Rate and Rhythm are regular. ABDOMEN: No distention. EXTREMITITES: No edema. Objective - Vital Signs Vital signs: Vital Signs Temp 98.2 F 03/05/23 01:52 Pulse 74 03/05/23 07:04 Resp 19 03/05/23 07:04 BP 126/78 03/05/23 07:04 Pulse Ox 99 03/05/23 07:04 FiO2 Intake & Output 03/04/23 03/05/23 03/05/23 18:59 06:59 18:59 Output Total 600 550 Balance -600 -550 Output: Urine 600 550 Other: Voiding Method Indwelling Catheter Indwelling Catheter Indwelling Catheter - Labs CBC & Chem 7: 03/05/23 08:08 03/05/23 08:08 Labs: Abnormal Lab Results - Last 24 Hours (Table) 03/05/23 03/05/23 Range/Units 08:08 08:08 WBC 14.0 H (3.8-10.6) k/uL Neutrophils # 11.1 H (1.3-7.7) k/uL Sodium 133 L (137-145) mmol/L Chloride 95 L (98-107) mmol/L Carbon Dioxide 34 H (22-30) mmol/L Creatinine 1.77 H (0.52-1.04) mg/dL Glucose 113 H (74-99) mg/dL Assessment and Plan Plan: Assessment: 1. Acute kidney injury secondary to ATN secondary to infection and vancomycin toxicity. Creatinine peaked at 2.19 this admission and is 1.77 today. No hydronephrosis noted on kidney ultrasound. Right kidney atrophic. UA benign. 2. Urinary retention. Okeefe catheter placed by urology. Nonoliguric. 3. Left leg cellulitis on antibiotics. ID following. 4. Hyperkalemia secondary to acute kidney injury and urinary retention. Better. Plan: Okeefe catheter per urology recommendations. Add Flomax. Encouraged oral intake. Lokelma 10 g once today. Follow up outpatient 1-2 weeks postdischarge.
[2023-03-05] MEDS: TAMSULOSIN 0.4 MG CAP.ER.24H PO SCH (12:52)
--- NOTE | 2023-03-05 12:53 | P.PN ---
Subjective Progress Note Date: 03/04/23 Principal diagnosis: Reason for follow-up with sepsis and left lower extremity cellulitis Patient is a 28-year-old female with a past medical history significant for developmental delay, patient was brought into the hospital by her mother concerning for a fever, patient was noticed to have a sepsis and left lower extremity cellulitis did have multiple antibiotic allergies. On today's evaluation that is 03/04/2023 patient remains to be afebrile , patient is breathing comfortably on 3 L nasal cannula oxygen, the patient left leg swelling redness and has decreased in intensity, no drainage has been reported did have mild diarrhea per the mother at the bedside Patient white count is slightly up to 12.1, creatinine is down to 1.89 Objective - Vital Signs Vital signs: Vital Signs Temp 97.9 F 03/04/23 14:30 Pulse 65 03/04/23 14:30 Resp 14 03/04/23 14:30 BP 143/89 03/04/23 14:30 Pulse Ox 93 L 03/04/23 14:30 FiO2 Intake & Output 03/03/23 03/04/23 03/04/23 18:59 06:59 18:59 Other: Voiding Method Indwelling Catheter Indwelling Catheter # Voids 4 2 # Bowel Movements 1 - Exam GENERAL DESCRIPTION: Middle-age lying in bed in no distress RESPIRATORY SYSTEM: Unlabored breathing , decreased breath sounds at bases HEART: S1 S2 regular rate and rhythm , ABDOMEN: Soft , no tenderness EXTREMITIES: Left lower extremity swelling redness has decreased in intensity - Labs CBC & Chem 7: 03/05/23 08:08 03/05/23 08:08 Labs: Abnormal Lab Results - Last 24 Hours (Table) 03/01/23 03/04/23 03/04/23 Range/Units 06:16 09:01 09:01 WBC 12.1 H (3.8-10.6) k/uL Neutrophils # 10.0 H (1.3-7.7) k/uL Neutrophils # (Manual) 13.95 H (1.80-7.70) X 10*3/uL Sodium 135 L (137-145) mmol/L Potassium 5.4 H (3.5-5.1) mmol/L Creatinine 1.89 H (0.52-1.04) mg/dL Glucose 104 H (74-99) mg/dL Assessment and Plan (1) Allergy to multiple antibiotics Current Visit: Yes Status: Acute Code(s): Z88.1 - ALLERGY STATUS TO OTHER ANTIBIOTIC AGENTS SNOMED Code(s): 011977394 (2) Left leg cellulitis Current Visit: Yes Status: Acute Code(s): L03.116 - CELLULITIS OF LEFT LOWER LIMB SNOMED Code(s): 67386241026148553 (3) Leukocytosis Current Visit: Yes Status: Acute Code(s): D72.829 - ELEVATED WHITE BLOOD CELL COUNT, UNSPECIFIED SNOMED Code(s): 457730638 Plan: 1patient was in the hospital with sepsis in this patient who did have a fever tachycardia elevated white count source is acute left lower extremity cellulitis with rapid progression of the cellulitis more likely streptococcal disease 2patient with multiple antibiotic ALLERGIES that would limit the number of antibiotic safe to use 3patient did have some clinical improvement and resolution of the fever and the patient white count is down to 11.3 4-patient to continue with oral clindamycin along with probiotics and advised to increase yogurt intake Mother at the bedside questions were answered Dictation was produced using [employer] dictation software. please excuse any grammatical, word or spelling errors. Time with Patient: Less than 30
--- NOTE | 2023-03-05 12:54 | P.PN ---
Subjective Progress Note Date: 03/05/23 Principal diagnosis: Reason for follow-up with sepsis and left lower extremity cellulitis Patient is a 28-year-old female with a past medical history significant for developmental delay, patient was brought into the hospital by her mother concerning for a fever, patient was noticed to have a sepsis and left lower extremity cellulitis did have multiple antibiotic allergies. On today's evaluation that is 03/05/2023 patient continues to be afebrile , patient is breathing comfortably on 3 L nasal cannula oxygen, the patient left leg swelling redness and has decreased in intensity, patient seem to be comfortable still have a Okeefe catheter did have 1 small loose stool per the mother at the bedside Patient white count is slightly up to 14.0, creatinine is down to 1.77 Objective - Vital Signs Vital signs: Vital Signs Temp 98.2 F 03/05/23 01:52 Pulse 74 03/05/23 07:04 Resp 19 03/05/23 07:04 BP 126/78 03/05/23 07:04 Pulse Ox 99 03/05/23 07:04 FiO2 Intake & Output 03/04/23 03/05/23 03/05/23 18:59 06:59 18:59 Output Total 600 550 Balance -600 -550 Output: Urine 600 550 Other: Voiding Method Indwelling Catheter Indwelling Catheter Indwelling Catheter - Exam GENERAL DESCRIPTION: Middle-age lying in bed in no distress RESPIRATORY SYSTEM: Unlabored breathing , decreased breath sounds at bases HEART: S1 S2 regular rate and rhythm , ABDOMEN: Soft , no tenderness EXTREMITIES: Left lower extremity swelling redness has decreased in intensity - Labs CBC & Chem 7: 03/05/23 08:08 03/05/23 08:08 Labs: Abnormal Lab Results - Last 24 Hours (Table) 03/05/23 03/05/23 Range/Units 08:08 08:08 WBC 14.0 H (3.8-10.6) k/uL Neutrophils # 11.1 H (1.3-7.7) k/uL Sodium 133 L (137-145) mmol/L Chloride 95 L (98-107) mmol/L Carbon Dioxide 34 H (22-30) mmol/L Creatinine 1.77 H (0.52-1.04) mg/dL Glucose 113 H (74-99) mg/dL Assessment and Plan (1) Allergy to multiple antibiotics Current Visit: Yes Status: Acute Code(s): Z88.1 - ALLERGY STATUS TO OTHER ANTIBIOTIC AGENTS SNOMED Code(s): 981947970 (2) Left leg cellulitis Current Visit: Yes Status: Acute Code(s): L03.116 - CELLULITIS OF LEFT LOWER LIMB SNOMED Code(s): 39782573013553301 (3) Leukocytosis Current Visit: Yes Status: Acute Code(s): D72.829 - ELEVATED WHITE BLOOD CELL COUNT, UNSPECIFIED SNOMED Code(s): 446913079 Plan: 1patient was in the hospital with sepsis in this patient who did have a fever tachycardia elevated white count source is acute left lower extremity cellulitis with rapid progression of the cellulitis more likely streptococcal disease 2patient with multiple antibiotic ALLERGIES that would limit the number of antibiotic safe to use 3patient did have some clinical improvement and resolution of the fever and the patient white count initially improved but trending up for the last 2 days 4-patient to continue with oral clindamycin keeping in mind the patient did have worsening of the white count the left leg cellulitis has improved patient did have diarrhea we will check a stool for C. difficile and treat if positive Dictation was produced using [email or web address] dictation software. please excuse any grammatical, word or spelling errors. Time with Patient: Less than 30
--- NOTE | 2023-03-05 14:37 | P.PN ---
Subjective Progress Note Date: 03/05/23 Hospital course: Patient is a very pleasant 20-year-old female with a past medical history of developmental delay, multiple musculoskeletal abnormalities, eczema, hypothyroidism, and depression. She presented to emergency department with a complaint of worsening redness over her feet and legs, left more than right. She was febrile and tachycardic. Labs revealing significant leukocytosis with WBC count of 30.2, ESR of 126, and CRP of 33.4. Liver profile also revealing transaminitis with AST of 79, ALT of 85, and alkaline phosphatase of 180. X- rays concerning for diffuse soft tissue edema. Patient was admitted for sepsis secondary to cellulitis with consult to infectious disease. She was started on IV antibiotics with vancomycin. Patient also with increasing oxygenation needs and a chest x-ray was completed showing large body habitus with marked hypoventilatory changes, cardiomegaly, and possible mild interstitial opacities concerning for pulmonary vascular congestion. Bilateral lower extremity Dopplers were completed and negative for DVTs. Echocardiogram was ordered secondary to concerns of right heart failure with possible pulmonary vascular congestion and elevated liver enzymes. Echocardiogram completed showing a preserved EF of 50-55% with no significant valvular or structural abnormalities reported. Respiratory function is normal or stable. She did develop acute kidney injury, now renal function is stable. Nephrology is consulted. Also had urinary retention, urology was consulted for Bhatt catheter placement. Patient seen and examined at bedside. No acute events overnight. Bhatt catheter in place. Had diarrhea Physical exam: Vital signs reviewed and stable. General: Nontoxic, no acute distress. Derm: Skin warm and dry, normal coloration for ethnicity. Left lower extremity with minimal erythema with blisters with crusting, no drainage Head: Atraumatic, normocephalic and symmetric. Eyes:No lid lag, and anicteric sclera Mouth: no lip lesions, mucus membranes moist Cardiovascular: regular rate and rhythm with normal S1S2, no murmur, positive posterior tibial pulses bilaterally, and cap refill < 2 seconds. Lungs: Respirations even, regular, and unlabored on room air. Lungs CTA bilaterally, no rhonchi, no rales, no wheezing, and no accessory muscle usage. Patient does have some upper respiratory noises Abdominal: soft, nontender to palpation, no guarding, no appreciable organomegaly Ext: Lower extremity contractures Neuro: Speech clear. Patient appropriate for developmental level, patient with history of developmental delay Psych: Appropriate and pleasant affect. Assessment and Plan of Care: Patient needs close monitoring, prognosis guarded Sepsis secondary to lower extremity cellulitis, resolving Severe leukocytosis secondary to above , resolving Acute hypoxic respiratory failure, resolving Transaminitis, suspected reactive secondary to sepsis Acute kidney injury, stable Hyperkalemia Acute urinary retention -Vancomycin discontinued due to acute kidney injury -Infectious disease note reviewed, patient currently on clindamycin 300 3 times a day, also on probiotics, cdiff pending -Discussed with nephrology, follow up with urology for discontinuation of bhatt -oxybutynin discontinued -lokelma 10 g x 1 ordered for today by nephrology -repeat BMP tomorrow Hypothyroidism Depression Developmental delay -Continue daily medication regimen with Synthroid 25 g daily, and sertraline 100 mg daily Data and imaging reviewed: WBC 14.0, potassium 5.1, creatinine 1.77, magnesium 2.1 CODE STATUS: Full code DVT prophylaxis: Heparin Anticipated discharge place: Home Anticipated discharge time: 1-2 days Objective - Vital Signs Vital signs: Vital Signs Temp 97.7 F 03/05/23 14:16 Pulse 76 03/05/23 14:16 Resp 18 03/05/23 14:16 BP 121/77 03/05/23 14:16 Pulse Ox 97 03/05/23 14:16 FiO2 Intake & Output 03/04/23 03/05/23 03/05/23 18:59 06:59 18:59 Output Total 600 550 750 Balance -600 -550 -750 Output: Urine 600 550 750 Other: Voiding Method Indwelling Catheter Indwelling Catheter Indwelling Catheter - Labs CBC & Chem 7: 03/05/23 08:08 03/05/23 08:08 Labs: Abnormal Lab Results - Last 24 Hours (Table) 03/05/23 03/05/23 Range/Units 08:08 08:08 WBC 14.0 H (3.8-10.6) k/uL Neutrophils # 11.1 H (1.3-7.7) k/uL Sodium 133 L (137-145) mmol/L Chloride 95 L (98-107) mmol/L Carbon Dioxide 34 H (22-30) mmol/L Creatinine 1.77 H (0.52-1.04) mg/dL Glucose 113 H (74-99) mg/dL
[2023-03-05] MEDS: SERTRALINE 100 MG TAB PO SCH (16:29)
[2023-03-05] MEDS: LEVOTHYROXINE 25 MCG TAB PO SCH (16:29)
[2023-03-06] MEDS: HEPARIN SODIUM,PORCINE 5,000 UNIT/ML 1 ML VIAL SQ SCH ×4 (00:05→23:31)
[2023-03-06 08:55] LABS: Basophils # (A) 0.08 X 10*3/uL (0.00-0.10); Basophils % (A) 0.5 %; Eosinophils # (A) 0.23 X 10*3/uL (0.04-0.35); Eosinophils % (A) 1.6 %; HCT 35.4 % (37.2-46.3); HGB 11.3 g/dL (12.0-15.0); Lymphocytes # (A) 1.74 X 10*3/uL (0.90-5.00); MCH 26.6 pg (27.0-32.0); MCHC 31.9 g/dL (32.0-37.0); MCV 83.3 FL (80.0-97.0); Mean Platelet Volume 8.8 FL (9.5-12.2); Monocytes # (A) 1.13 X 10*3/uL (0.20-1.00); Monocytes % (A) 7.8 %; NRBC Per 100 WBC 0 X 10*3/uL (0.00-0.01); Neutrophils # (A) 11.22 X 10*3/uL (1.80-7.70); Platelet Count 437 X 10*3/uL (140-440); RBC 4.25 X 10*6/uL (4.10-5.20); RDW 12.6 % (11.5-14.5); WBC 14.56 X 10*3/uL (4.50-10.00)
[2023-03-06 09:05] LABS: ALT 33 U/L (8-44); AST 25 U/L (13-35); Albumin 3.5 g/dL (3.8-4.9); Alkaline Phosphatase 90 U/L (41-126); BUN/Creat Ratio 11.13 Ratio (12.00-20.00); Blood Urea Nitrogen 16.7 mg/dL (9.0-27.0); Calcium 9.8 mg/dL (8.7-10.3); Carbon Dioxide 30.4 mmol/L (21.6-31.8); Chloride 93 mmol/L (96-109); Globulin 4.4 g/dL (1.6-3.3); Glucose 98 mg/dL (70-110); Potassium 4.7 mmol/L (3.5-5.5); Sodium 133 mmol/L (135-145); Total Bilirubin 0.4 mg/dL (0.3-1.2); Total Protein 7.9 g/dL (6.2-8.2)
[2023-03-06] MEDS: TAMSULOSIN 0.4 MG CAP.ER.24H PO SCH (09:15)
[2023-03-06] MEDS: CLINDAMYCIN 150 MG CAP PO SCH ×3 (09:15→20:10)
[2023-03-06] MEDS: LACTOBACILLUS ACIDOPHILUS/PECT 1 EACH CAPSULE PO SCH ×2 (09:15→20:10)
--- NOTE | 2023-03-06 11:31 | P.PN ---
Subjective Patient is seen in follow-up for acute kidney injury. Renal function improved. Off IV fluids. Oral intake good. Has Okeefe catheter. Nonoliguric. Family present at bedside. Vital signs are stable. General: No acute distress. HEENT: Head exam is unremarkable. LUNGS: No audible rhonchi or wheezes. HEART: Rate and Rhythm are regular. ABDOMEN: No distention. EXTREMITITES: No edema. Objective - Vital Signs Vital signs: Vital Signs Temp 98.6 F 03/06/23 07:07 Pulse 60 03/06/23 07:07 Resp 21 03/06/23 07:07 BP 133/80 03/06/23 07:07 Pulse Ox 99 03/06/23 07:07 FiO2 Intake & Output 03/05/23 03/06/23 03/06/23 18:59 06:59 18:59 Output Total 750 400 600 Balance -750 -400 -600 Output: Urine 750 400 600 Uretheral (Okeefe) 600 Other: Voiding Method Indwelling Catheter Indwelling Catheter Indwelling Catheter # Voids 1 - Labs CBC & Chem 7: 03/06/23 06:03 03/06/23 06:03 Labs: Abnormal Lab Results - Last 24 Hours (Table) 03/06/23 03/06/23 Range/Units 06:03 06:03 WBC 14.56 H (4.50-10.00) X 10*3/uL Hgb 11.3 L (12.0-15.0) g/dL Hct 35.4 L (37.2-46.3) % MCH 26.6 L (27.0-32.0) pg MCHC 31.9 L (32.0-37.0) g/dL MPV 8.8 L (9.5-12.2) FL Immature Gran # 0.16 H (0.00-0.04) X 10*3/uL Neutrophils # 11.22 H (1.80-7.70) X 10*3/uL Monocytes # 1.13 H (0.20-1.00) X 10*3/uL Sodium 133 L (135-145) mmol/L Chloride 93 L (96-109) mmol/L Est GFR (CKD-EPI) 48 L (>=60) BUN/Creatinine Ratio 11.13 L (12.00-20.00) Ratio C-Reactive Protein 1.00 H (0.00-0.80) mg/dL Albumin 3.5 L (3.8-4.9) g/dL Globulin 4.4 H (1.6-3.3) g/dL Albumin/Globulin Ratio 0.80 L (1.60-3.17) Ratio Assessment and Plan Plan: Assessment: 1. Acute kidney injury secondary to ATN secondary to infection and vancomycin toxicity. Creatinine peaked at 2.19 this admission and is 1.5 today. No hydronephrosis noted on kidney ultrasound. Right kidney atrophic. UA benign. 2. Urinary retention. Okeefe catheter placed by urology. On Flomax. Nonoliguric. 3. Left leg cellulitis on antibiotics. ID following. 4. Hyperkalemia secondary to acute kidney injury and urinary retention. Better. Plan: Okeefe catheter per urology recommendations. Will be removed today. Monitor bladder scans to make sure no urinary retention. Encouraged oral intake. Follow up outpatient 1-2 weeks postdischarge.
--- NOTE | 2023-03-06 12:36 | P.PN ---
Subjective Progress Note Date: 03/06/23 Principal diagnosis: Reason for follow-up with sepsis and left lower extremity cellulitis Patient is a 28-year-old female with a past medical history significant for developmental delay, patient was brought into the hospital by her mother concerning for a fever, patient was noticed to have a sepsis and left lower extremity cellulitis did have multiple antibiotic allergies. On today's evaluation that is 03/06/2023 patient remains to be afebrile , patient is breathing comfortably on 3 L nasal cannula oxygen, the patient left leg swelling redness and has almost resolved per the mother at the bedside, patient stools are forming up and Okeefe catheter has been discontinued this morning by the nursing staff Patient white count is slightly up to 14.56, creatinine is down to 1.5 Objective - Vital Signs Vital signs: Vital Signs Temp 98.6 F 03/06/23 07:07 Pulse 60 03/06/23 07:07 Resp 21 03/06/23 07:07 BP 133/80 03/06/23 07:07 Pulse Ox 99 03/06/23 07:07 FiO2 Intake & Output 03/05/23 03/06/23 03/06/23 18:59 06:59 18:59 Output Total 750 400 Balance -750 -400 Output: Urine 750 400 Other: Voiding Method Indwelling Catheter Indwelling Catheter Indwelling Catheter # Voids 1 - Exam GENERAL DESCRIPTION: Middle-age lying in bed in no distress RESPIRATORY SYSTEM: Unlabored breathing , decreased breath sounds at bases HEART: S1 S2 regular rate and rhythm , ABDOMEN: Soft , no tenderness EXTREMITIES: Left lower extremity swelling redness has decreased in intensity - Labs CBC & Chem 7: 03/06/23 06:03 03/06/23 06:03 Labs: Abnormal Lab Results - Last 24 Hours (Table) 03/06/23 03/06/23 Range/Units 06:03 06:03 WBC 14.56 H (4.50-10.00) X 10*3/uL Hgb 11.3 L (12.0-15.0) g/dL Hct 35.4 L (37.2-46.3) % MCH 26.6 L (27.0-32.0) pg MCHC 31.9 L (32.0-37.0) g/dL MPV 8.8 L (9.5-12.2) FL Immature Gran # 0.16 H (0.00-0.04) X 10*3/uL Neutrophils # 11.22 H (1.80-7.70) X 10*3/uL Monocytes # 1.13 H (0.20-1.00) X 10*3/uL Sodium 133 L (135-145) mmol/L Chloride 93 L (96-109) mmol/L Est GFR (CKD-EPI) 48 L (>=60) BUN/Creatinine Ratio 11.13 L (12.00-20.00) Ratio C-Reactive Protein 1.00 H (0.00-0.80) mg/dL Albumin 3.5 L (3.8-4.9) g/dL Globulin 4.4 H (1.6-3.3) g/dL Albumin/Globulin Ratio 0.80 L (1.60-3.17) Ratio Assessment and Plan (1) Allergy to multiple antibiotics Current Visit: Yes Status: Acute Code(s): Z88.1 - ALLERGY STATUS TO OTHER ANTIBIOTIC AGENTS SNOMED Code(s): 881074370 (2) Left leg cellulitis Current Visit: Yes Status: Acute Code(s): L03.116 - CELLULITIS OF LEFT LOWER LIMB SNOMED Code(s): 44236442296954383 (3) Leukocytosis Current Visit: Yes Status: Acute Code(s): D72.829 - ELEVATED WHITE BLOOD CELL COUNT, UNSPECIFIED SNOMED Code(s): 549813180 Plan: 1patient was in the hospital with sepsis in this patient who did have a fever tachycardia elevated white count source is acute left lower extremity cellulitis with rapid progression of the cellulitis more likely streptococcal disease 2patient with multiple antibiotic ALLERGIES that would limit the number of antibiotic safe to use 3patient did have some clinical improvement and resolution of the fever and almost resolution of the left leg cellulitis however the patient did have a persistent worsening of the white count stool for C. difficile was negative questionably related to the Okeefe catheter and there was multiple attempts to place straight Okeefe has been discontinued today we will repeat a CBC tomorrow if the white count is trending down no further workup if still elevated will check a UA Mother at the bedside questions were answered Dictation was produced using [employer] software. please excuse any grammatical, word or spelling errors.
--- NOTE | 2023-03-06 14:21 | P.PN ---
Subjective Progress Note Date: 03/06/23 Hospital course: Patient is a very pleasant 20-year-old female with a past medical history of d evelopmental delay, multiple musculoskeletal abnormalities, eczema, hypothyroidism, and depression. She presented to emergency department with a complaint of worsening redness over her feet and legs, left more than right. She was febrile and tachycardic. Labs revealing significant leukocytosis with WBC count of 30.2, ESR of 126, and CRP of 33.4. Liver profile also revealing transaminitis with AST of 79, ALT of 85, and alkaline phosphatase of 180. X- rays concerning for diffuse soft tissue edema. Patient was admitted for sepsis secondary to cellulitis with consult to infectious disease. She was started on IV antibiotics with vancomycin. Patient also with increasing oxygenation needs and a chest x-ray was completed showing large body habitus with marked hypoventilatory changes, cardiomegaly, and possible mild interstitial opacities concerning for pulmonary vascular congestion. Bilateral lower extremity Dopplers were completed and negative for DVTs. Echocardiogram was ordered secon caty to concerns of right heart failure with possible pulmonary vascular congestion and elevated liver enzymes. Echocardiogram completed showing a preserved EF of 50-55% with no significant valvular or structural abnormalities reported. Respiratory function is normal or stable. She did develop acute kidney injury, now renal function is stable. Nephrology is consulted. Also had urinary retention, urology was consulted for Okeefe catheter placement. Renal function has improved. Okeefe catheter being discontinued. Patient seen and examined at bedside. No acute events overnight. No further diarrhea. Physical exam: Vital signs reviewed and stable. General: Nontoxic, no acute distress. Derm: Skin warm and dry, normal coloration for ethnicity. Left lower extremity with minimal erythema with blisters with crusting, no drainage Head: Atraumatic, normocephalic and symmetric. Eyes:No lid lag, and anicteric sclera Mouth: no lip lesions, mucus membranes moist Cardiovascular: regular rate and rhythm with normal S1S2, no murmur, positive posterior tibial pulses bilaterally, and cap refill < 2 seconds. Lungs: Respirations even, regular, and unlabored on room air. Lungs CTA bilate rally, no rhonchi, no rales, no wheezing, and no accessory muscle usage. Patient does have some upper respiratory noises Abdominal: soft, nontender to palpation, no guarding, no appreciable organomeg viktoria Ext: Lower extremity contractures Neuro: Speech clear. Patient appropriate for developmental level, patient with history of developmental delay Psych: Appropriate and pleasant affect. Assessment and Plan of Care: Sepsis secondary to lower extremity cellulitis, resolving Severe leukocytosis secondary to above , resolving Acute hypoxic respiratory failure, resolved Transaminitis, suspected reactive secondary to sepsis Acute kidney injury, resolving Hyperkalemia, resolved Acute urinary retention status post Okeefe catheter -Discussed management with infectious disease, if WBC count decreases tomorrow, patient can potentially be discharged -Nephrology note reviewed, discontinue Okeefe catheter today -oxybutynin discontinued -Repeat CBC tomorrow Hypothyroidism Depression Developmental delay -Continue daily medication regimen with Synthroid 25 g daily, and sertraline 100 mg daily Data and imaging reviewed: WBC 14.56, creatinine 1.5 CODE STATUS: Full code DVT prophylaxis: Heparin Anticipated discharge place: Home Anticipated discharge time: Tomorrow Objective - Vital Signs Vital signs: Vital Signs Temp 98.2 F 03/06/23 14:00 Pulse 68 03/06/23 14:00 Resp 18 03/06/23 14:00 BP 123/74 03/06/23 14:00 Pulse Ox 96 03/06/23 14:00 FiO2 Intake & Output 03/05/23 03/06/23 03/06/23 18:59 06:59 18:59 Output Total 750 400 675 Balance -750 -400 -675 Output: Urine 750 400 675 Uretheral (Okeefe) 600 Other: Voiding Method Indwelling Catheter Indwelling Catheter Indwelling Catheter # Voids 1 - Labs CBC & Chem 7: 03/06/23 06:03 03/06/23 06:03 Labs: Abnormal Lab Results - Last 24 Hours (Table) 03/06/23 03/06/23 Range/Units 06:03 06:03 WBC 14.56 H (4.50-10.00) X 10*3/uL Hgb 11.3 L (12.0-15.0) g/dL Hct 35.4 L (37.2-46.3) % MCH 26.6 L (27.0-32.0) pg MCHC 31.9 L (32.0-37.0) g/dL MPV 8.8 L (9.5-12.2) FL Immature Gran # 0.16 H (0.00-0.04) X 10*3/uL Neutrophils # 11.22 H (1.80-7.70) X 10*3/uL Monocytes # 1.13 H (0.20-1.00) X 10*3/uL Sodium 133 L (135-145) mmol/L Chloride 93 L (96-109) mmol/L Est GFR (CKD-EPI) 48 L (>=60) BUN/Creatinine Ratio 11.13 L (12.00-20.00) Ratio C-Reactive Protein 1.00 H (0.00-0.80) mg/dL Albumin 3.5 L (3.8-4.9) g/dL Globulin 4.4 H (1.6-3.3) g/dL Albumin/Globulin Ratio 0.80 L (1.60-3.17) Ratio
[2023-03-06] MEDS: LEVOTHYROXINE 25 MCG TAB PO SCH (16:04)
[2023-03-06] MEDS: SERTRALINE 100 MG TAB PO SCH (16:04)
[2023-03-07] MEDS: TAMSULOSIN 0.4 MG CAP.ER.24H PO SCH (08:28)
[2023-03-07] MEDS: HEPARIN SODIUM,PORCINE 5,000 UNIT/ML 1 ML VIAL SQ SCH ×2 (08:28→16:49)
[2023-03-07 08:29] VITALS: BP 128/69; PULSE 69; RESP 16; TEMP 99
[2023-03-07] MEDS: CLINDAMYCIN 150 MG CAP PO SCH ×2 (08:29→16:49)
[2023-03-07] MEDS: LACTOBACILLUS ACIDOPHILUS/PECT 1 EACH CAPSULE PO SCH (08:29)
[2023-03-07 11:36] LABS: BUN/Creat Ratio 11.73 Ratio (12.00-20.00); Blood Urea Nitrogen 17.6 mg/dL (9.0-27.0); Calcium 10.3 mg/dL (8.7-10.3); Carbon Dioxide 30.3 mmol/L (21.6-31.8); Chloride 94 mmol/L (96-109); Glucose 101 mg/dL (70-110); Magnesium 1.9 mg/dL (1.5-2.4); Potassium 4.8 mmol/L (3.5-5.5); Sodium 135 mmol/L (135-145)
[2023-03-07 12:36] LABS: Basophils # (A) 0.07 X 10*3/uL (0.00-0.10); Basophils % (A) 0.6 %; Eosinophils # (A) 0.22 X 10*3/uL (0.04-0.35); Eosinophils % (A) 1.8 %; HCT 37.7 % (37.2-46.3); HGB 11.9 g/dL (12.0-15.0); Lymphocytes # (A) 1.61 X 10*3/uL (0.90-5.00); Lymphocytes % (A) 13.5 %; MCH 26.3 pg (27.0-32.0); MCHC 31.6 g/dL (32.0-37.0); MCV 83.4 FL (80.0-97.0); Mean Platelet Volume 9.6 FL (9.5-12.2); Monocytes # (A) 1.04 X 10*3/uL (0.20-1.00); Monocytes % (A) 8.7 %; NRBC Per 100 WBC 0 X 10*3/uL (0.00-0.01); Neutrophils # (A) 8.84 X 10*3/uL (1.80-7.70); Neutrophils % (A) 74.2 %; Platelet Count 441 X 10*3/uL (140-440); RBC 4.52 X 10*6/uL (4.10-5.20); RBC Morphology Normal (Normal); RDW 12.6 % (11.5-14.5); WBC 11.92 X 10*3/uL (4.50-10.00)
--- NOTE | 2023-03-07 13:05 | P.PN ---
Subjective Patient is seen in follow-up for acute kidney injury. Renal function improved and now stable. Off IV fluids. Oral intake good. Okeefe catheter removed. Has been voiding on her own. Family present at bedside. Vital signs are stable. General: No acute distress. HEENT: Head exam is unremarkable. LUNGS: No audible rhonchi or wheezes. HEART: Rate and Rhythm are regular. ABDOMEN: No distention. EXTREMITITES: No edema. Objective - Vital Signs Vital signs: Vital Signs Temp 99.0 F 03/07/23 08:00 Pulse 69 03/07/23 08:00 Resp 16 03/07/23 08:00 BP 128/69 03/07/23 08:00 Pulse Ox 95 03/07/23 08:00 FiO2 Intake & Output 03/06/23 03/07/23 03/07/23 18:59 06:59 18:59 Intake Total 240 Output Total 1075 Balance -1075 240 Intake: Oral 240 Output: Urine 1075 Uretheral (Okeefe) 600 Other: Voiding Method Indwelling Catheter - Labs CBC & Chem 7: 03/07/23 06:40 03/07/23 06:40 Labs: Abnormal Lab Results - Last 24 Hours (Table) 03/07/23 03/07/23 Range/Units 06:40 06:40 WBC 11.92 H (4.50-10.00) X 10*3/uL Hgb 11.9 L (12.0-15.0) g/dL MCH 26.3 L (27.0-32.0) pg MCHC 31.6 L (32.0-37.0) g/dL Plt Count 441 H (140-440) X 10*3/uL Immature Gran # 0.14 H (0.00-0.04) X 10*3/uL Neutrophils # 8.84 H (1.80-7.70) X 10*3/uL Monocytes # 1.04 H (0.20-1.00) X 10*3/uL Chloride 94 L (96-109) mmol/L Est GFR (CKD-EPI) 48 L (>=60) BUN/Creatinine Ratio 11.73 L (12.00-20.00) Ratio Assessment and Plan Plan: Assessment: 1. Acute kidney injury secondary to ATN secondary to infection and vancomycin toxicity. Creatinine peaked at 2.19 this admission and is stable 1.5 today. No hydronephrosis noted on kidney ultrasound. Right kidney atrophic. UA benign. 2. Urinary retention. Okeefe catheter placed by urology. On Flomax. Nonoliguric. 3. Left leg cellulitis on antibiotics. ID following. 4. Hyperkalemia secondary to acute kidney injury and urinary retention. Better. Plan: Encouraged oral intake. Follow up outpatient 1-2 weeks postdischarge.
--- NOTE | 2023-03-07 15:25 | P.PN ---
Subjective Progress Note Date: 03/07/23 Principal diagnosis: Reason for follow-up with sepsis and left lower extremity cellulitis Patient is a 28-year-old female with a past medical history significant for developmental delay, patient was brought into the hospital by her mother concerning for a fever, patient was noticed to have a sepsis and left lower extremity cellulitis did have multiple antibiotic allergies. On today's evaluation that is 03/07/2023 the patient is afebrile, the patient is breathing comfortably on room air, patient left leg swelling redness has resolved no problem with urination after discontinuation of the Okeefe catheter and no diarrhea reported by the mother at the bedside patient cannot provide any history Patient white count is down to 11.92, creatinine is 1.5 Objective - Vital Signs Vital signs: Vital Signs Temp 99.0 F 03/07/23 08:00 Pulse 69 03/07/23 08:00 Resp 16 03/07/23 08:00 BP 128/69 03/07/23 08:00 Pulse Ox 95 03/07/23 08:00 FiO2 Intake & Output 03/06/23 03/07/23 03/07/23 18:59 06:59 18:59 Intake Total 240 Output Total 1075 Balance -1075 240 Intake: Oral 240 Output: Urine 1075 Uretheral (Okeefe) 600 Other: Voiding Method Indwelling Catheter - Exam GENERAL DESCRIPTION: Middle-age lying in bed in no distress RESPIRATORY SYSTEM: Unlabored breathing , decreased breath sounds at bases HEART: S1 S2 regular rate and rhythm , ABDOMEN: Soft , no tenderness EXTREMITIES: Left lower extremity swelling redness has resolved - Labs CBC & Chem 7: 03/07/23 06:40 03/07/23 06:40 Assessment and Plan (1) Allergy to multiple antibiotics Current Visit: Yes Status: Acute Code(s): Z88.1 - ALLERGY STATUS TO OTHER ANTIBIOTIC AGENTS SNOMED Code(s): 185307306 (2) Left leg cellulitis Current Visit: Yes Status: Acute Code(s): L03.116 - CELLULITIS OF LEFT LOWER LIMB SNOMED Code(s): 73502581768121784 (3) Leukocytosis Current Visit: Yes Status: Acute Code(s): D72.829 - ELEVATED WHITE BLOOD CELL COUNT, UNSPECIFIED SNOMED Code(s): 347160263 Plan: 1patient was in the hospital with sepsis in this patient who did have a fever tachycardia elevated white count source is acute left lower extremity cellulitis with rapid progression of the cellulitis more likely streptococcal disease 2patient with multiple antibiotic ALLERGIES that would limit the number of antibiotic safe to use 3patient did have resolution of her left lower extremity cellulitis and the patient white count is trending down recommend to discontinue clindamycin and no need for antibiotic on discharge this was discussed with the admitting team Dictation was produced using [employer] dictation software. please excuse any grammatical, word or spelling errors. Time with Patient: Less than 30
--- NOTE | 2023-03-07 16:35 | P.DS ---
Providers Date of admission: 02/23/23 02:54 Expected date of discharge: 03/07/23 Attending physician: Agustina Patel MD Consults: 02/23/23 03:23 Consult Physician Urgent Consulting Provider: Magalie Simons Consult Reason/Comments: cellulitis Do you want consulting provider notified?: Yes, Notify in am 03/01/23 13:06 Consult Physician Routine Consulting Provider: Cuca Nam Consult Reason/Comments: RHONA Do you want consulting provider notified?: Yes Primary care physician: [facility] Course: Sepsis secondary to lower extremity cellulitis, resolving Severe leukocytosis secondary to above , resolving Acute hypoxic respiratory failure, resolved Transaminitis, suspected reactive secondary to sepsis Acute kidney injury, resolving Hyperkalemia, resolved Acute urinary retention status post Okeefe catheter Hypothyroidism Depression Developmental delay Hospital course: Patient is a very pleasant 20-year-old female with a past medical history of developmental delay, multiple musculoskeletal abnormalities, eczema, hypothyroidism, and depression. She presented to emergency department with a complaint of worsening redness over her feet and legs, left more than right. She was febrile and tachycardic. Labs revealing significant leukocytosis with WBC count of 30.2, ESR of 126, and CRP of 33.4. Liver profile also revealing transaminitis with AST of 79, ALT of 85, and alkaline phosphatase of 180. X- rays concerning for diffuse soft tissue edema. Patient was admitted for sepsis secondary to cellulitis with consult to infectious disease. She was started on IV antibiotics with vancomycin. Patient also with increasing oxygenation needs and a chest x-ray was completed showing large body habitus with marked hypoventilatory changes, cardiomegaly, and possible mild interstitial opacities concerning for pulmonary vascular congestion. Bilateral lower extremity Dopplers were completed and negative for DVTs. Echocardiogram was ordered seco ndary to concerns of right heart failure with possible pulmonary vascular congestion and elevated liver enzymes. Echocardiogram completed showing a preserved EF of 50-55% with no significant valvular or structural abnormalities reported. Respiratory function is normal or stable. She did develop acute kidney injury, now renal function is stable. Nephrology is consulted. Also had urinary retention, urology was consulted for Okeefe catheter placement. Renal function has improved. Okeefe catheter was discontinued. Pt completed course of clindamycin while in house. WBC improved. Pt will f/u with PCP, nephrology. I spent 32 minutes coordinating this discharge on 03/07 Physical exam: Vital signs reviewed and stable. General: Nontoxic, no acute distress. Derm: Skin warm and dry, normal coloration for ethnicity. Left lower extremity with minimal erythema with blisters with crusting, no drainage Head: Atraumatic, normocephalic and symmetric. Eyes:No lid lag, and anicteric sclera Mouth: no lip lesions, mucus membranes moist Cardiovascular: regular rate and rhythm with normal S1S2, no murmur, positive posterior tibial pulses bilaterally, and cap refill < 2 seconds. Lungs: Respirations even, regular, and unlabored on room air Abdominal: soft, nontender to palpation, no guarding, no appreciable organomegaly Ext: Lower extremity contractures Psych: Appropriate and pleasant affect. Patient Condition at Discharge: Good Plan - Discharge Summary Discharge Rx Participant: Yes New Discharge Prescriptions: New Acetaminophen Tab [Tylenol] 650 mg PO Q6HR PRN tab PRN Reason: Mild Pain Or Fever > 100.5 Continue Furosemide [Lasix] 40 mg PO DAILY@1500 Ferrous Sulfate [Iron (65 MG Elemental)] 325 mg PO HS@2200 Potassium Chloride [Klor-Con M20] 20 meq PO DAILY@1500 Levothyroxine Sodium [Synthroid] 25 mcg PO DAILY@1500 Sertraline [Zoloft] 100 mg PO DAILY@1500 Medroxyprogesterone Acetate [Depo-Provera] 150 mg IM Q84D Multivitamins, Thera [Multivitamin (formulary)] 1 tab PO HS@2200 Discontinued oxyBUTYnin chloride [Ditropan XL] 10 mg PO HS@2200 Hydrocortisone Cream [Hydrocortisone 2.5% Cream] 1 applic TOPICAL BID PRN PRN Reason: Rash Discharge Medication List Furosemide [Lasix] 40 mg PO DAILY@1500 07/31/21 [History] Levothyroxine Sodium [Synthroid] 25 mcg PO DAILY@1500 07/31/21 [History] Potassium Chloride [Klor-Con M20] 20 meq PO DAILY@1500 07/31/21 [History] Ferrous Sulfate [Iron (65 MG Elemental)] 325 mg PO HS@2200 02/23/23 [History] Medroxyprogesterone Acetate [Depo-Provera] 150 mg IM Q84D 02/23/23 [History] Multivitamins, Thera [Multivitamin (formulary)] 1 tab PO HS@2200 02/23/23 [History] Sertraline [Zoloft] 100 mg PO DAILY@1500 02/23/23 [History] Acetaminophen Tab [Tylenol] 650 mg PO Q6HR PRN tab 03/07/23 [Rx] Follow up Appointment(s)/Referral(s): Niurka Gutierrez NPC [STAFF PHYSICIAN] - 1-2 days (Office is not answering. Please call for follow-up appointment.) Tee Francisco DO [STAFF PHYSICIAN] - 2 Weeks Patient Instructions/Handouts: Cellulitis (GEN) Discharge Disposition: HOME SELF-CARE
[2023-03-07] MEDS: LEVOTHYROXINE 25 MCG TAB PO SCH (16:48)
[2023-03-07] MEDS: SERTRALINE 100 MG TAB PO SCH (16:49)
== END 2023-03-07 16:43 | disposition home or self-care (01) | DRG 720 ==
LOC: EC 00:10 → 4SSUR 02:54
PROVIDERS: ADMIT Internal Medicine; ATTEND Internal Medicine
PROC: 05HD33Z Insertion of Infusion Device into Right Cephalic Vein, Percutaneous Approach (ICD-10-PCS; principal; 2023-02-27 20:20)
PROC: 0T9B70Z Drainage of Bladder with Drainage Device, Via Natural or Artificial Opening (ICD-10-PCS; 2023-03-03)
DX: A41.9 Sepsis, unspecified organism (principal); E03.9 Hypothyroidism, unspecified; E66.01 Morbid (severe) obesity due to excess calories; E87.5 Hyperkalemia; E87.70 Fluid overload, unspecified; F17.200 Nicotine dependence, unspecified, uncomplicated; F32.A Depression, unspecified; L03.116 Cellulitis of left lower limb; L30.9 Dermatitis, unspecified; T36.8X5A Adverse effect of other systemic antibiotics, initial encounter; I50.810 Right heart failure, unspecified; N18.9 Chronic kidney disease, unspecified; R74.01 Elevation of levels of liver transaminase levels; Q66.89 Other specified congenital deformities of feet; I95.9 Hypotension, unspecified; J96.00 Acute respiratory failure, unspecified whether with hypoxia or hypercapnia; L03.115 Cellulitis of right lower limb; M41.9 Scoliosis, unspecified; Q35.9 Cleft palate, unspecified; F79 Unspecified intellectual disabilities; N17.0 Acute kidney failure with tubular necrosis; R33.9 Retention of urine, unspecified; Z79.890 Hormone replacement therapy; Z11.52 Encounter for screening for COVID-19; Z82.49 Family history of ischemic heart disease and other diseases of the circulatory system; Z87.730 Personal history of (corrected) cleft lip and palate; Z79.899 Other long term (current) drug therapy; Z88.1 Allergy status to other antibiotic agents; Z88.0 Allergy status to penicillin; Z88.2 Allergy status to sulfonamides
CPT/HCPCS: 36410; 36415; 71045; 76770; 76937; 80048; 80053; 80202; 81003; 82565; 83605; 83735; 85025; 85027; 85652; 86140; 87040; 87324; 87636; 93306; 93970; 96361; 96365; 96366; 96368; 96375; 96376; 99285